=== PATIENT | female | born 1950 | race Caucasian/White ===

== ENCOUNTER 2016-11-11 16:34 | Emergency (ER) | payer OTHER ==
[~2016-11-11] VITALS: Ht 162.6 cm; Wt 118.0 kg
[~2016-11-11 16:34] MED LIST: ALBU8.5H5 IH; ASPI-664 PO; ATEN50TA PO; DILT60TA29 PO; FURO40TA4 PO; GLYB1TAB3 PO; LEVA15HF6 INH; LOSA1TAB21 PO
[2016-11-11 16:39] VITALS: Ht 162.6 cm; Wt 118.0 kg
[2016-11-11] MEDS ORDERED: LABETALOL HCL 20MG INJ IV ONE (17:30)
[2016-11-11] MEDS ORDERED: ERGO500037 PO (17:45)
[2016-11-11] MEDS ORDERED: DIPH25CA6 PO (17:46)
[2016-11-11] MEDS ORDERED: GLYB5TAB3 PO (17:46)
[2016-11-11] MEDS ORDERED: HYDR-3671 PO (17:47)
[2016-11-11] MEDS ORDERED: POTA20TA96 PO (17:47)
[2016-11-11] MEDS ORDERED: GABA100C14 PO (17:48)
--- NOTE | 2016-11-11 17:48 | RADRPT ---
PROCEDURE: Chest x-ray CLINICAL INDICATION: Chest pain TECHNIQUE: Chest single view COMPARISON: 05/20/2014 FINDINGS: There is stable moderate cardiomegaly and an sclerotic aortic calcification. Ongoing mild central v enous congestion is seen with slight enlargement of the central pulmonary vessels. No confluent pne umonias identified. No large pleural fluid is seen. IMPRESSION: 1. Cardiomegaly with ongoing mild degree CHF. 2. Atherosclerotic aortic calcification. 3. Enlarged central pulmonary arteries RPTAT: HH .Samuel Rodriges MD, MD Date Time Electronically viewed and signed by .Samuel Rodriges MD, MD on 11/11/2016 17:47 .W/
[2016-11-11] MEDS ORDERED: CLON-379 PO (17:51)
[2016-11-11 18:17] LABS: BASOPHIL # 0.1 10^3/ul (0.0-0.1); BASOPHILS % 0.6 % (0.0-2.0); EOSINOPHILS % 0.1 % (0.0-7.0); HEMATOCRIT 40.4 % (37.0-47.0); HEMOGLOBIN 12.3 g/dl (12.0-16.0); LYMPHOCYTES # 1.7 10^3/ul (0.8-2.9); MEAN CORPUSCULAR HEMOGLOBIN 28.6 pg (29.0-33.0); MEAN CORPUSCULAR HGB CONC 30.4 g/dl (32.0-37.0); MEAN PLATELET VOLUME 10.7 fl (7.4-10.4); MONOCYTE # 0.5 10^3/ul (0.3-0.9); MONOCYTES % 5.2 % (0.0-11.0); NEUTROPHILS % 76.6 % (39.0-77.0); PLATELET COUNT 211 10^3/UL (140-415); RED CELL DISTRIBUTION WIDTH 14.4 % (11.5-14.5); WHITE BLOOD COUNT 10.2 10^3/ul (4.8-10.8)
[2016-11-11 18:34] LABS: INR 1.03; PARTIAL THROMBOPLASTIN TIME 29.7 Sec (25.0-35.0); PROTIME 13.5 Sec (12.2-14.2); PT RATIO 1.1
[2016-11-11 18:38] LABS: ANION GAP 11 (8-16); BLOOD UREA NITROGEN 26 mg/dl (7-20); CALCIUM 10.2 mg/dl (8.4-10.2); CARBON DIOXIDE 32 mmol/L (21-31); CHLORIDE 98 mmol/L (97-110); CREATININE 1.03 mg/dl (0.44-1.00); GLUCOSE 174 mg/dl (70-220); POTASSIUM 4.1 mmol/L (3.5-5.1); SODIUM 137 mmol/L (135-144)
[2016-11-11 18:51] LABS: B-TYPE NATRIURETIC PEPTIDE 409 PG/ML (0-125)
[2016-11-11 18:54] LABS: TROPONIN-I < 0.012 ng/ml (0.00-0.12)
[2016-11-11 20:35] VITALS: BP 167/84; PULSE 75; RESP 24
[2016-11-11] MEDS ORDERED: METOPROLOL 50 MG TAB PO ONE (21:30)
[2016-11-11] MEDS ORDERED: FUROSEMIDE 40 MG INJ IV ONE (21:30)
[2016-11-11] MEDS ORDERED: METO-429 PO (21:52)
--- NOTE | 2016-11-11 22:03 | ERD ---
ER Documentation Chief Complaint Date/Time DATE: 11/11/16 TIME: 21:54 Chief Complaint pt bib daughter with c/o sob x 1 month HPI This 66-year-old female presents with shortness of breath for a month. She is a coming by her daughter. She denies any chest pain, fevers, chills. She also is noted to have very high blood pressure in triage. She took both of her blood pressure medications today. They are hydralazine and atenolol. ROS All systems reviewed and are negative except as per history of present illness. Medications Home Meds Active Scripts Metoprolol Tartrate* (Lopressor*) 50 Mg Tab, 50 MG PO BID, #60 TAB Prov:DENNIS NAYLOR DO 11/11/16 Reported Medications Clonidine Hcl* (Clonidine Hcl*) 0.1 Mg Tab, 0.1 MG PO DAILY Y for NEEDED, TAB HOLD IF BLOOD PRESSURE MORE THAN 160 11/11/16 Gabapentin* (Gabapentin*) 100 Mg Capsule, 200 MG PO DAILY, #180 CAP 11/11/16 Potassium Chloride* (Potassium Chloride*) 20 Meq Tablet.er, 20 MEQ PO DAILY, TAB.SA 11/11/16 Hydralazine Hcl* (Hydralazine Hcl*) 25 Mg Tab, 25 MG PO Q8, #90 TAB 11/11/16 Glyburide* (Glyburide*) 5 Mg Tablet, 5 MG PO DAILY Y for NEEDED, #30 TAB 11/11/16 Diphenhydramine Hcl* (Diphenhydramine Hcl*) 25 Mg Capsule, 25 MG PO QHS Y for ITCHING, CAP 11/11/16 Ergocalciferol (Vitamin D2) (VITAMIN D2) 50,000 Unit Capsule, 21044 UNIT PO Q7D , CAP 11/11/16 Losartan-Hydrochlorothiazide (Losartan-HCTZ) 100-12.5 Mg Tab, 1 TAB PO DAILY, TAB 05/20/14 Diltiazem Hcl* (Cardizem*) 60 Mg Tablet, 60 MG PO BID, TAB 05/20/14 Furosemide* (Furosemide*) 40 Mg Tablet, 40 MG PO DAILY, TAB 05/20/14 Glyburide, Micro-Metformin Hcl (Glyburide-Metformin) 5-500 Tab, 2 TAB PO BID, TAB 05/20/14 Aspirin (Aspirin) 81 Mg Tablet.dr, 81 MG PO DAILY 1/30/14 Atenolol* (Atenolol*) 50 Mg Tablet, 50 MG PO BID 10/25/10 Discontinued Reported Medications Albuterol Sulfate* (Albuterol Sulfate* HFA) 8.5 Gm Hfa.aer.ad, 2 PUFF IH Q4H Y for WHEEZING AND SOB, EA 05/20/14 Levalbuterol* (Xopenex* HFA) 15 Gm Inha, 2 PUFFS INH Q4H Y for WHEEZING AND SOB , EA 05/20/14 Allergies Allergies: Coded Allergies: sildenafil (Verified Allergy, Intermediate, BODY RASH, DIAPHORETIC/ TACHYPNEIC, 11/11/16) PMhx/Soc History of Surgery: No Anesthesia Reaction: No Hx Neurological Disorder: No Hx Respiratory Disorders: No Hx Cardiac Disorders: Yes (HTN, CHF ) Hx Psychiatric Problems: No Hx Miscellaneous Medical Probl: Yes (DIABETES, UTERINE CA ) Hx Alcohol Use: No Hx Substance Use: No Hx Tobacco Use: No Smoking Status: Never smoker Physical Exam Vitals Vital Signs Date Time Temp Pulse Resp B/P Pulse Ox O2 Delivery O2 Flow Rate FiO2 11/11/16 20:35 75 24 167/84 99 Nasal Cannula 2.0 11/11/16 18:19 76 16 167/81 Nasal Cannula 2.0 11/11/16 17:40 Nasal Cannula 2.0 11/11/16 17:40 Nasal Cannula 2 11/11/16 17:30 81 30 196/99 97 Nasal Cannula 3.0 11/11/16 16:39 98.3 118 28 240/116 91 Physical Exam Const: [] Mild distress, appears short of breath Head: Atraumatic Eyes: Normal Conjunctiva ENT: Normal External Ears, Nose and Mouth. Neck: Full range of motion..~ No meningismus. Resp: Mild decreased bibasilar breath sounds, very mild tachypnea Cardio: Regular rate and rhythm, no murmurs Abd: Soft, obese, non tender, non distended. Normal bowel sounds Skin: No petechiae or rashes Ext: No cyanosis, or edema Neur: Awake and alert and oriented 3, no focal deficits Psych: Normal Mood and Affect Result Diagram: 11/11/16 1750 11/11/16 1750 Results 24 hrs Laboratory Tests Test 11/11/16 17:50 White Blood Count 10.210^3/ul Red Blood Count 4.3010^6/ul Hemoglobin 12.3g/dl Hematocrit 40.4% Mean Corpuscular Volume 94.0fl Mean Corpuscular Hemoglobin 28.6pg Mean Corpuscular Hemoglobin Concent 30.4g/dl Red Cell Distribution Width 14.4% Platelet Count 89439^3/UL Mean Platelet Volume 10.7fl Neutrophils % 76.6% Lymphocytes % 17.0% Monocytes % 5.2% Eosinophils % 0.1% Basophils % 0.6% Nucleated Red Blood Cells % 0.0/100WBC Neutrophils # (Manual) 7.910^3/ul Lymphocytes # 1.710^3/ul Monocytes # 0.510^3/ul Eosinophils # 0.010^3/ul Basophils # 0.110^3/ul Nucleated Red Blood Cells # 0.010^3/ul Prothrombin Time 13.5Sec Prothrombin Time Ratio 1.1 INR International Normalized Ratio 1.03 Activated Partial Thromboplast Time 29.7Sec Sodium Level 137mmol/L Potassium Level 4.1mmol/L Chloride Level 98mmol/L Carbon Dioxide Level 32mmol/L Anion Gap 11 Blood Urea Nitrogen 26mg/dl Creatinine 1.03mg/dl Glucose Level 174mg/dl Calcium Level 10.2mg/dl Troponin I < 0.012ng/ml B-Type Natriuretic Peptide 409PG/ML Current Medications Medications (Trade) Dose Ordered Sig/Meena Route PRN Reason Start Time Stop Time Status Last Admin Dose Admin Labetalol HCl (Labetalol) 20 mg ONCE ONCE IV 11/11/16 17:30 11/11/16 17:31 DC 11/11/16 17:33 Furosemide (Lasix) 40 mg ONCE ONCE IV 11/11/16 21:30 11/11/16 21:31 DC 11/11/16 21:35 Metoprolol Tartrate (Lopressor) 50 mg ONCE ONCE PO 11/11/16 21:30 11/11/16 21:31 DC 11/11/16 21:35 Procedures/MDM Severe hypertension with hypertensive crisis.. Patient also has mild CHF as noted by labs and x-ray. However shortness of breath completely resolved after blood pressure was controlled. Patient was given IV labetalol to control the blood pressure. Recommended admission in order to further monitor blood pressure and cardiac function however it turned out the patient's insurance capitated to [facility] even though she had been admitted here previously. She does not want to go that hospital and rather go home. Did not make her sign out AGAINST MEDICAL ADVICE. She was also given Lasix 40 mg in the ER as well as a metoprolol pill. She was able to tolerate the metoprolol well. Going to discharge with metoprolol 50 mg twice daily in place of the atenolol although the dose may need to be increased. I instructed him to call the primary care doctor tomorrow and recommended outpatient echocardiogram as well. EKG interpretation: Normal sinus rhythm rate of 80, left axis deviation, no ST or T-wave changes concerning for acute ischemia, normal intervals. 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 This does not include any billable procedures. Departure Diagnosis: Primary Impression: CHF (congestive heart failure) Additional Impressions: Hypertensive urgency Renal insufficiency Condition: Stable Patient Instructions: Hypertension, Established, Out Of Control Additional Instructions: Call your primary care doctor TOMORROW for a SAME-DAY APPOINTMENT.Tell the physician office secretary that you were referred from this facility.Call again if your condition worsens before your appointment time. DENNIS NAYLOR DO Nov 11, 2016 22:03
== END 2016-11-11 21:57 | disposition home or self-care (01) ==
LOC: E/R 16:34
DX: I50.9 Heart failure, unspecified (principal); I16.0 Hypertensive urgency; N28.9 Disorder of kidney and ureter, unspecified; I10 Essential (primary) hypertension; E11.9 Type 2 diabetes mellitus without complications; Z79.82 Long term (current) use of aspirin; Z79.84 Long term (current) use of oral hypoglycemic drugs; Z85.42 Personal history of malignant neoplasm of other parts of uterus
CPT/HCPCS: 71010; 80048; 83880; 84484; 85025; 85610; 85730; 93005; 96374; 96375; J1940; Z7502; Z7610

== ENCOUNTER 2018-01-25 13:24 | Inpatient (IN) | END 2018-01-27 11:22 | disposition home or self-care (01) | DRG 551 ==

== ENCOUNTER 2018-05-12 11:31 | Inpatient (IN) | payer MEDICARE, OTHER ==
[~2018-05-12] VITALS: Ht 154.9 cm; Wt 143.3 kg
[~2018-05-12 11:31] MED LIST changes: -ALBU8.5H5 IH; +AMLO-147 PO; -ASPI-664 PO; +ASPI81TA52 PO; -ATEN50TA PO; +CARV6.2579 PO; -DILT60TA29 PO; +FURO-109 PO; -FURO40TA4 PO; +GLIP10TA14 PO; -GLYB1TAB3 PO; +INSU100I33 SC; -LEVA15HF6 INH; +LOSA100T15 PO; -LOSA1TAB21 PO; +METF100010 PO; +POTA8TAB2 PO
[2018-05-12] MEDS ORDERED: CARV12.579 PO (12:30)
[2018-05-12] MEDS ORDERED: GABA100C14 PO (12:31)
[2018-05-12] MEDS ORDERED: ALBU18HF INHALATION (12:31)
[2018-05-12] MEDS ORDERED: DIGO250T PO (12:32)
[2018-05-12] MEDS ORDERED: IBUP-1544 PO (12:34)
[2018-05-12] MEDS ORDERED: ATOR20TA38 PO (12:34)
[2018-05-12] MEDS ORDERED: ERGO500013 PO (12:35)
[2018-05-12] MEDS ORDERED: APIX5TAB PO (12:35)
[2018-05-12] MEDS ORDERED: NITROGLYCERIN 2% 1 GM OINT PKT TD STA (12:49)
[2018-05-12] MEDS ORDERED: ASPIRIN 81 MG TAB PO STA (12:49)
[2018-05-12] MEDS ORDERED: NITROGLYCERIN (SL) 0.4 MG TAB SL PRN ×2 (13:00→14:30)
[2018-05-12] MEDS ORDERED: FUROSEMIDE 40 MG INJ IV ONE (13:00)
[2018-05-12] MEDS ORDERED: ONDANSETRON 4 MG INJ IV PRN ×2 (13:30→14:30)
[2018-05-12] MEDS ORDERED: ACETAMINOPHEN 325 MG TAB PO PRN ×2 (13:30→14:30)
--- NOTE | 2018-05-12 13:36 | ERD ---
ER Documentation Chief Complaint Chief Complaint SOB WITH HYPERTENSION, ARRIVED WITH O2 NC 2.5L HPI Patient is a 67-year-old female with CHF, hypertension, diabetes who presents with shortness of breath. The patient has had shortness of breath for 1 week and it is getting worse. She has a history of CHF. She went to her doctor 3 days ago. She said "I cannot breathe". She uses CPAP at night. She has had no treatment today. Upon review of old medical records the patient has multiple visits with admissions for CHF. She does have a primary doctor. ROS All systems reviewed and are negative except as per history of present illness. Medications Home Meds Reported Medications Apixaban* (Eliquis*) 5 Mg Tablet, 5 MG PO BID, TAB 05/12/18 Ergocalciferol (Vitamin D2) (VITAMIN D2) 50,000 Unit Capsule, 49021 UNIT PO WEEKLY, CAP 05/12/18 Atorvastatin Calcium* (Atorvastatin Calcium*) 20 Mg Tablet, 20 MG PO QHS, #30 TAB 05/12/18 Ibuprofen* (Ibuprofen*) 800 Mg Tablet, 800 MG PO DAILY PRN for SEVERE PAIN LEVEL 7-10, TAB 05/12/18 Digoxin* (Digitek*) 250 Mcg Tablet, 0.25 MG PO DAILY, TAB 05/12/18 Gabapentin* (Gabapentin*) 100 Mg Capsule, 200 MG PO DAILY, #180 CAP 05/12/18 Albuterol Sulfate* (Ventolin HFA*) 18 Gm Hfa.aer.ad, 2 PUFF INHALATION Q6H PRN for WHEEZING AND SOB, #1 INHALER 05/12/18 Carvedilol* (Carvedilol*) 12.5 Mg Tablet, 12.5 MG PO BID, #60 TAB 05/12/18 Potassium Chloride* (Klor-Con*) 8 Meq Tablet.sa, 8 MEQ PO BID, TAB 01/25/18 Losartan Potassium* (Losartan Potassium*) 100 Mg Tablet, 100 MG PO DAILY, TAB 01/25/18 Furosemide* (Lasix*) 40 Mg Tablet, 40 MG PO BID, TAB 01/25/18 Insulin Glargine,Hum.rec.anlog (Basaglar Kwikpen U-100) 100 Unit/1 Ml Insuln.pen, 10 UNIT SC BID, EA 01/25/18 Amlodipine Besylate* (Amlodipine Besylate*) 10 Mg Tablet, 10 MG PO DAILY, #30 TAB 01/25/18 Metformin Hcl* (Metformin Hcl*) 1,000 Mg Tablet, 1000 MG PO WITH BREAKFAST DINNE, #60 TAB 01/25/18 Glipizide* (Glipizide*) 10 Mg Tablet, 10 MG PO BID, TAB 01/25/18 Discontinued Reported Medications Carvedilol* (Carvedilol*) 6.25 Mg Tablet, 6.25 MG PO BID, #60 TAB 01/25/18 Aspirin (Low Dose Aspirin) 81 Mg Tablet.dr, 81 MG PO DAILY, #30 TAB 01/25/18 Allergies Allergies: Coded Allergies: sildenafil (Verified Allergy, Intermediate, BODY RASH, DIAPHORETIC/TACHYPNEIC, 05/12/18) PMhx/Soc History of Surgery: Yes (hysterectomy) Anesthesia Reaction: No Hx Neurological Disorder: No Hx Respiratory Disorders: No (sleep apnea) Hx Cardiac Disorders: Yes (chf) Hx Psychiatric Problems: No Hx Miscellaneous Medical Probl: Yes (obesity, chf, sob , dm , htn , on home 02 .) Hx Alcohol Use: No Hx Substance Use: No Hx Tobacco Use: No Smoking Status: Never smoker FmHx Family History: No diabetes Physical Exam Vitals Vital Signs Date Temp Pulse Resp B/P (MAP) Pulse Ox O2 O2 Flow FiO2 Time Delivery Rate 05/12/18 74 100 50 12:06 05/12/18 99.0 89 35 213/123 75 11:39 (153) Physical Exam Const: Moderate distress Head: Atraumatic Eyes: Normal Conjunctiva ENT: Normal External Ears, Nose and Mouth. Neck: Full range of motion. No meningismus. Resp: Decreased breath sounds bilaterally Cardio: Regular rate and rhythm, no murmurs Abd: Anasarca in the lower abdomen Skin: No petechiae or rashes Back: No midline or flank tenderness Ext: 4+ bilateral lower extremity edema Neur: Awake and alert Psych: Normal Mood and Affect Result Diagram: 05/12/18 1200 05/12/18 1200 Results 24 hrs Laboratory Tests Test 05/12/18 12:00 White Blood Count 12.0 10^3/ul Red Blood Count 4.64 10^6/ul Hemoglobin 13.1 g/dl Hematocrit 43.7 % Mean Corpuscular Volume 94.2 fl Mean Corpuscular Hemoglobin 28.2 pg Mean Corpuscular Hemoglobin Concent 30.0 g/dl Red Cell Distribution Width 14.6 % Platelet Count 214 10^3/UL Mean Platelet Volume 10.7 fl Immature Granulocytes % 0.600 % Neutrophils % 81.5 % Lymphocytes % 12.1 % Monocytes % 5.2 % Eosinophils % 0.2 % Basophils % 0.4 % Nucleated Red Blood Cells % 0.0 /100WBC Immature Granulocytes # 0.070 10^3/ul Neutrophils # 9.8 10^3/ul Lymphocytes # 1.5 10^3/ul Monocytes # 0.6 10^3/ul Eosinophils # 0.0 10^3/ul Basophils # 0.1 10^3/ul Nucleated Red Blood Cells # 0.0 10^3/ul Prothrombin Time 15.8 Sec Prothrombin Time Ratio 1.2 INR International Normalized Ratio 1.25 Activated Partial Thromboplast Time 33.3 Sec Sodium Level 140 mmol/L Potassium Level 4.6 mmol/L Chloride Level 99 mmol/L Carbon Dioxide Level 32 mmol/L Anion Gap 9 Blood Urea Nitrogen 13 mg/dl Creatinine 0.73 mg/dl Est Glomerular Filtrat Rate mL/min > 60 mL/min Glucose Level 284 mg/dl Calcium Level 9.9 mg/dl Troponin I < 0.012 ng/ml Current Medications Medications Dose Sig/Meena Start Time Status Last (Trade) Ordered Route PRN Stop Time Admin Dose Reason Admin Furosemide 40 mg ONCE ONCE 05/12/18 DC 05/12/18 (Lasix) IV 13:00 12:57 05/12/18 13:01 Aspirin 162 mg ONCE STAT 05/12/18 DC 05/12/18 (Aspirin) PO 12:49 12:58 05/12/18 12:50 1 inch ONCE STAT 05/12/18 DC 05/12/18 Nitroglycerin TD 12:49 12:58 05/12/18 12:50 (Nitroglyceri n 2% Oint) 1 tab Q5M UP TO 3 05/12/18 Nitroglycerin DOSES PRN 13:00 SL .CHEST (Nitroglyceri PAIN n (Sl Tab) 0.4 Mg) Ondansetron 4 mg ER BRIDGE 05/12/18 HCl (Zofran PRN IV 13:30 Inj) NAUSEA/VOMITI 05/13/18 13:29 NG 650 mg ER BRIDGE 05/12/18 Acetaminophen PRN PO 13:30 (Tylenol .MILD PAIN 05/13/18 13:29 Tab) 1-3 OR TEMP Procedures/MDM EKG read by me: Rate/Rhythm: Atrial fibrillation at a rate of 68 Intervals: Normal Impression: Atrial fibrillation without ischemia Chest x-ray read by radiology. Patient is a 67-year-old female with multiple cardiac risk factors who presents with shortness of breath. She was placed on BiPAP immediately upon arrival. She has obvious swelling the lower extremities and abdomen. I am concerned for acute CHF exacerbation with anasarca. I believe she has respiratory failure as she needed BiPAP therapy. She was given aspirin, nitroglycerin, and Lasix. She will be admitted to a telemetry bed to the care of the panel team. I doubt pneumonia, pneumothorax, pulmonary embolism, or aortic dissection. Critical Care: Time: 35 minutes excluding all billable procedures. Treatments/Evaluations: Close monitoring and treatment of unstable vital signs, cardiorespiratory, and neurologic status, while maintaining tight balance of fluid, respiratory, and cardiac interventions. Departure Diagnosis: Primary Impression: Respiratory failure Chronicity: acute Respiratory failure complication: unspecified whether with hypoxia or hypercapnia Qualified Codes: J96.00 - Acute respiratory failure, unspecified whether with hypoxia or hypercapnia Additional Impressions: Shortness of breath CHF (congestive heart failure) Heart failure type: unspecified Heart failure chronicity: acute Qualified Codes: I50.9 - Heart failure, unspecified Condition: HALEY Reid MD May 12, 2018 13:36
[2018-05-12] MEDS ORDERED: DOCUSATE SODIUM 100 MG CAP PO PRN (14:30)
[2018-05-12] MEDS ORDERED: HYDROCODONE/APAP (5/325) TAB PO PRN (14:30)
[2018-05-12] MEDS ORDERED: MAGNESIUM HYDROXIDE 30ML CUP PO PRN (14:30)
[2018-05-12] MEDS ORDERED: IBUPROFEN 800 MG TAB PO PRN (14:30)
[2018-05-12] MEDS ORDERED: morphine 2 MG INJ IV PRN (14:30)
[2018-05-12] MEDS ORDERED: ALBUTEROL/IPRATROPIUM (NEB) 3 ML AMP HHN PRN (14:30)
[2018-05-12] MEDS ORDERED: PROVENTIL HFA 6.7GM INHALER INH PRN (14:30)
[2018-05-12] MEDS ORDERED: LORAZEPAM 2 MG INJ IV PRN (14:30)
[2018-05-12] MEDS ORDERED: NACL 0.9% 3 ML SYG IV SCH (14:30)
[2018-05-12] MEDS ORDERED: hydrALAzine 20 MG INJ IV PRN (14:30)
--- NOTE | 2018-05-12 15:36 | CONS ---
Assessment/Plan Cardiology NYHA: II Heart Failure Type: Acute on Chronic Heart Failure Type: Diastolic Assessment/Plan Hospital Course (Demo Recall) Acute decompensated diastolic congestive heart failure Preserved ejection fraction Atrial fibrillation Hypertension Diabetes Morbid obesity Obstructive sleep apnea Likely obesity hypoventilation syndrome -Patient with evidence of significant volume overload. Continue IV diuretics -Obtain serial cardiac enzymes -Blood pressure control -Continue Eliquis if no contraindication -Extensive discussion with patient and daughter at bedside regarding importance of medication compliance, lifestyle modification and weight loss. Consultation Date/Type/Reason Admit Date/Time Type of Consult Cardiology Reason for Consultation Shortness of breath Date/Time of Note DATE: 05/12/18 TIME: 15:29 Hx of Present Illness This is a 67-year-old female with past medical history of diastolic congestive heart failure, hypertension, diabetes, atrial fibrillation who presents with progressive worsening shortness of breath over the past 10 days. Symptoms are worse with exertion and improved at rest. Symptoms also with lying down to sleep. Symptoms are improved with supplemental oxygen which she is on at home. As per the family, they think she is compliant with medications but noncompliant with diet and lifestyle. 12 point review of systems was performed with all pertinent positives and negatives mentioned above and all else is negative Past Medical History Medical History: congestive heart failure, diabetes, high cholesterol, hypertension Home Meds Reported Medications Apixaban* (Eliquis*) 5 Mg Tablet, 5 MG PO BID, TAB 05/12/18 Ergocalciferol (Vitamin D2) (VITAMIN D2) 50,000 Unit Capsule, 70947 UNIT PO WEEKLY, CAP 05/12/18 Atorvastatin Calcium* (Atorvastatin Calcium*) 20 Mg Tablet, 20 MG PO QHS, #30 TAB 05/12/18 Ibuprofen* (Ibuprofen*) 800 Mg Tablet, 800 MG PO DAILY PRN for SEVERE PAIN LEVEL 7-10, TAB 05/12/18 Digoxin* (Digitek*) 250 Mcg Tablet, 0.25 MG PO DAILY, TAB 05/12/18 Gabapentin* (Gabapentin*) 100 Mg Capsule, 200 MG PO DAILY, #180 CAP 05/12/18 Albuterol Sulfate* (Ventolin HFA*) 18 Gm Hfa.aer.ad, 2 PUFF INHALATION Q6H PRN for WHEEZING AND SOB, #1 INHALER 05/12/18 Carvedilol* (Carvedilol*) 12.5 Mg Tablet, 12.5 MG PO BID, #60 TAB 05/12/18 Potassium Chloride* (Klor-Con*) 8 Meq Tablet.sa, 8 MEQ PO BID, TAB 01/25/18 Losartan Potassium* (Losartan Potassium*) 100 Mg Tablet, 100 MG PO DAILY, TAB 01/25/18 Furosemide* (Lasix*) 40 Mg Tablet, 40 MG PO BID, TAB 01/25/18 Insulin Glargine,Hum.rec.anlog (Basaglar Kwikpen U-100) 100 Unit/1 Ml Insuln.pen, 10 UNIT SC BID, EA 01/25/18 Amlodipine Besylate* (Amlodipine Besylate*) 10 Mg Tablet, 10 MG PO DAILY, #30 TAB 01/25/18 Metformin Hcl* (Metformin Hcl*) 1,000 Mg Tablet, 1000 MG PO WITH BREAKFAST DINNE, #60 TAB 01/25/18 Glipizide* (Glipizide*) 10 Mg Tablet, 10 MG PO BID, TAB 01/25/18 Discontinued Reported Medications Carvedilol* (Carvedilol*) 6.25 Mg Tablet, 6.25 MG PO BID, #60 TAB 01/25/18 Aspirin (Low Dose Aspirin) 81 Mg Tablet.dr, 81 MG PO DAILY, #30 TAB 01/25/18 Medications Current Medications Nitroglycerin (Nitroglycerin (Sl Tab) 0.4 Mg) 1 tab Q5M UP TO 3 DOSES PRN SL .CHEST PAIN; Start 05/12/18 at 13:00 Ondansetron HCl (Zofran Inj) 4 mg ER BRIDGE PRN IV NAUSEA/VOMITING; Start 05/12/18 at 13:30; Stop 05/13/18 at 13:29 Acetaminophen (Tylenol Tab) 650 mg ER BRIDGE PRN PO .MILD PAIN 1-3 OR TEMP; Start 05/12/18 at 13:30; Stop 05/13/18 at 13:29 IV Flush (NS 3 ml) 3 ml PER PROTOCOL IV ; Start 05/12/18 at 14:30 Ondansetron HCl (Zofran Inj) 4 mg Q6H PRN IV NAUSEA/VOMITING; Start 05/12/18 at 14:30 Acetaminophen (Tylenol Tab) 650 mg Q6H PRN PO .PAIN 1-3 OR TEMP; Start 05/12/18 at 14:30 Acetaminophen/ Hydrocodone Bitart ([place] (5/325)) 1 tab Q6H PRN PO .MOD PAIN 4- 6; Start 05/12/18 at 14:30 Morphine Sulfate (morphine) 2 mg Q4H PRN IV .SEVERE PAIN 7-10; Start 05/12/18 at 14:30 Docusate Sodium (Colace) 100 mg Q12H PRN PO .CONSTIPATION; Start 05/12/18 at 14:30 Magnesium Hydroxide (Milk Of Mag) 30 ml DAILY PRN PO .CONSTIPATION; Start 05/12/18 at 14:30 Pantoprazole (Protonix Tab) 40 mg DAILY@06 PO ; Start 05/13/18 at 06:00 Lorazepam (Ativan) 0.5 mg Q6H PRN IV ANXIETY; Start 05/12/18 at 14:30 Albuterol/ Ipratropium (Duoneb) 3 ml Q4H RESP THERAPY PRN HHN SHORTNESS OF BREATH; Start 05/12/18 at 14:30 Hydralazine HCl (Apresoline) 10 mg Q6H PRN IV ELEVATED BLOOD PRESSURE; Start 05/12/18 at 14:30 Nitroglycerin (Nitroglycerin (Sl Tab) 0.4 Mg) 1 tab Q5M PRN SL ANGINA; Start 05/12/18 at 14:30 Albuterol (Proventil (O.r. Use Only)) 2 puff Q6H PRN INH WHEEZING AND SOB; Start 05/12/18 at 14:30 Amlodipine Besylate (Norvasc) 10 mg DAILY PO ; Start 05/13/18 at 09:00 Apixaban (Eliquis) 5 mg BID PO ; Start 05/12/18 at 21:00 Atorvastatin Calcium (Lipitor) 20 mg QHS PO ; Start 05/12/18 at 21:00 Digoxin (Digoxin) 0.25 mg DAILY@1300 PO ; Start 05/13/18 at 13:00 Gabapentin (Neurontin) 200 mg DAILY PO ; Start 05/13/18 at 09:00 Ibuprofen (Motrin) 800 mg DAILY PRN PO SEVERE PAIN LEVEL 7-10; Start 05/12/18 at 14:30 Insulin Glargine (Lantus) 10 unit BID SC ; Start 05/12/18 at 21:00 Losartan Potassium (Cozaar) 100 mg DAILY PO ; Start 05/13/18 at 09:00 Potassium Chloride (Micro-K) 8 meq BID PO ; Start 05/12/18 at 21:00 Furosemide (Lasix) 40 mg BID DIURETICS IV ; Start 05/12/18 at 18:00 Diagnostic Test (Pha) (Accu-Chek) 1 ea 02 XX ; Start 05/13/18 at 02:00 Insulin Aspart (Novolog Insulin Pen) NOVOLOG *MILD* ALGORI... Q4 SC ; Start 05/12/18 at 17:00 Allergies: Coded Allergies: sildenafil (Verified Allergy, Intermediate, BODY RASH, DIAPHORETIC/TACHY PNEIC, 05/12/18) Past Surgical History Past Surgical Hx: no surgical history Social History Smoking Status: Never smoker Exam/Review of Systems Vital Signs Vitals Vital Signs Date Temp Pulse Resp B/P (MAP) Pulse Ox O2 O2 Flow FiO2 Time Delivery Rate 05/12/18 79 24 176/101 Room Air 14:07 (126) 05/12/18 100 50 12:06 05/12/18 99.0 11:39 Exam Exam Morbidly obese, on supplemental oxygen, mildly dyspneic with extensively speaking Constitutional: alert, oriented Head: normocephalic Respiratory: crackles/rales, other (Coarse breath sounds) Cardiovascular: irregular rhythm, other (S1-S2 heard) Gastrointestinal: soft, non-tender, bowel sounds Extremities: edema Labs Result Diagram: 05/12/18 1200 05/12/18 1200 Results 24hrs Laboratory Tests Test 05/12/18 12:00 White Blood Count 12.0 H Red Blood Count 4.64 Hemoglobin 13.1 Hematocrit 43.7 Mean Corpuscular Volume 94.2 Mean Corpuscular Hemoglobin 28.2 L Mean Corpuscular Hemoglobin Concent 30.0 L Red Cell Distribution Width 14.6 H Platelet Count 214 Mean Platelet Volume 10.7 H Immature Granulocytes % 0.600 H Neutrophils % 81.5 H Lymphocytes % 12.1 L Monocytes % 5.2 Eosinophils % 0.2 Basophils % 0.4 Nucleated Red Blood Cells % 0.0 Immature Granulocytes # 0.070 H Neutrophils # 9.8 H Lymphocytes # 1.5 Monocytes # 0.6 Eosinophils # 0.0 Basophils # 0.1 Nucleated Red Blood Cells # 0.0 Prothrombin Time 15.8 H Prothrombin Time Ratio 1.2 INR International Normalized Ratio 1.25 Activated Partial Thromboplast Time 33.3 Sodium Level 140 Potassium Level 4.6 Chloride Level 99 Carbon Dioxide Level 32 H Anion Gap 9 Blood Urea Nitrogen 13 Creatinine 0.73 Est Glomerular Filtrat Rate mL/min > 60 Glucose Level 284 H Calcium Level 9.9 Troponin I < 0.012 Free Thyroxine 1.30 Imaging Imaging ECG with atrial fibrillation at 68 bpm, QRS 70 ms, inferior Q waves, nonspecific ST abnormalities Medications Medications Current Medications Nitroglycerin (Nitroglycerin (Sl Tab) 0.4 Mg) 1 tab Q5M UP TO 3 DOSES PRN SL .CHEST PAIN; Start 05/12/18 at 13:00 Ondansetron HCl (Zofran Inj) 4 mg ER BRIDGE PRN IV NAUSEA/VOMITING; Start 05/12/18 at 13:30; Stop 05/13/18 at 13:29 Acetaminophen (Tylenol Tab) 650 mg ER BRIDGE PRN PO .MILD PAIN 1-3 OR TEMP; Start 05/12/18 at 13:30; Stop 05/13/18 at 13:29 IV Flush (NS 3 ml) 3 ml PER PROTOCOL IV ; Start 05/12/18 at 14:30 Ondansetron HCl (Zofran Inj) 4 mg Q6H PRN IV NAUSEA/VOMITING; Start 05/12/18 at 14:30 Acetaminophen (Tylenol Tab) 650 mg Q6H PRN PO .PAIN 1-3 OR TEMP; Start 05/12/18 at 14:30 Acetaminophen/ Hydrocodone Bitart ([place] (5/325)) 1 tab Q6H PRN PO .MOD PAIN 4- 6; Start 05/12/18 at 14:30 Morphine Sulfate (morphine) 2 mg Q4H PRN IV .SEVERE PAIN 7-10; Start 05/12/18 at 14:30 Docusate Sodium (Colace) 100 mg Q12H PRN PO .CONSTIPATION; Start 05/12/18 at 14:30 Magnesium Hydroxide (Milk Of Mag) 30 ml DAILY PRN PO .CONSTIPATION; Start 05/12/18 at 14:30 Pantoprazole (Protonix Tab) 40 mg DAILY@06 PO ; Start 05/13/18 at 06:00 Lorazepam (Ativan) 0.5 mg Q6H PRN IV ANXIETY; Start 05/12/18 at 14:30 Albuterol/ Ipratropium (Duoneb) 3 ml Q4H RESP THERAPY PRN HHN SHORTNESS OF BREATH; Start 05/12/18 at 14:30 Hydralazine HCl (Apresoline) 10 mg Q6H PRN IV ELEVATED BLOOD PRESSURE; Start 05/12/18 at 14:30 Nitroglycerin (Nitroglycerin (Sl Tab) 0.4 Mg) 1 tab Q5M PRN SL ANGINA; Start 05/12/18 at 14:30 Albuterol (Proventil (O.r. Use Only)) 2 puff Q6H PRN INH WHEEZING AND SOB; Start 05/12/18 at 14:30 Amlodipine Besylate (Norvasc) 10 mg DAILY PO ; Start 05/13/18 at 09:00 Apixaban (Eliquis) 5 mg BID PO ; Start 05/12/18 at 21:00 Atorvastatin Calcium (Lipitor) 20 mg QHS PO ; Start 05/12/18 at 21:00 Digoxin (Digoxin) 0.25 mg DAILY@1300 PO ; Start 05/13/18 at 13:00 Gabapentin (Neurontin) 200 mg DAILY PO ; Start 05/13/18 at 09:00 Ibuprofen (Motrin) 800 mg DAILY PRN PO SEVERE PAIN LEVEL 7-10; Start 05/12/18 at 14:30 Insulin Glargine (Lantus) 10 unit BID SC ; Start 05/12/18 at 21:00 Losartan Potassium (Cozaar) 100 mg DAILY PO ; Start 05/13/18 at 09:00 Potassium Chloride (Micro-K) 8 meq BID PO ; Start 05/12/18 at 21:00 Furosemide (Lasix) 40 mg BID DIURETICS IV ; Start 05/12/18 at 18:00 Diagnostic Test (Pha) (Accu-Chek) 1 ea 02 XX ; Start 05/13/18 at 02:00 Insulin Aspart (Novolog Insulin Pen) NOVOLOG *MILD* ALGORI... Q4 SC ; Start 05/12/18 at 17:00 Watson Mckay DO May 12, 2018 15:36
[2018-05-12] MEDS ORDERED: BUMETANIDE 3 MG in DEXTROSE 5% 18 ML IV ONE (16:00)
--- NOTE | 2018-05-12 16:16 | HP ---
DATE OF ADMISSION: 05/12/2018 IDENTIFICATION: This is a 67-year-old female. CHIEF COMPLAINT: Shortness of breath, hypertensive urgency. HISTORY OF PRESENT ILLNESS: A 67-year-old female with past medical history of CHF, uses CPAP at [facility], type 2 diabetes, hypertension who presents with shortness of breath. The symptoms have been going on for the last 7 to 8 days. She went to her primary care doctor 3 days ago, stating she could not breathe. She still has, however, been using her CPAP at night. She denied any upper or lower GI ble eding. No nausea, vomiting, no fevers or chills, no diarrhea or constipation. Because her symptoms have persisted, she and her family decided to bring her into the ER today. The patient has had multi ple admissions for CHF exacerbation and last time she was here at the hospital at [facility] was 01/25/2018 to 01/27/2018 for similar episode. When she arrived today, she was found to have a w dylan blood cell count of 12,000. No fevers. Her chest x-ray did show bilateral lower lung atelectas is and infiltrates with small bilateral pleural effusions. When she arrived, she has also elevated b lood pressure 213 systolic over 123 diastolic and received Lasix in the ER as well as nitroglycerin. Troponin has been negative x1. When the patient arrived to the ER, she did require BiPAP for a shor t time, but now has been weaned down to nasal cannula oxygen. PAST MEDICAL HISTORY: As stated above. ALLERGIES: SILDENAFIL. HOME MEDICINES: 1. Ventolin HFA inhale q.6 hours p.r.n. 2. Eliquis 5 mg b.i.d. 3. Amlodipine 10 mg daily. 4. Atorvastatin 20 mg at bedtime. 5. Coreg 12.5 mg b.i.d. 6. Digoxin 0.125 mg daily. 7. Losartan 100 mg daily. 8. Gabapentin 200 mg daily. 9. Ibuprofen 800 mg daily p.r.n. 10. Lasix 40 mg p.o. b.i.d. 11. Klor-Con 8 mEq p.o. b.i.d. 12. Glipizide 10 mg b.i.d. 13. Insulin Glargine 10 units b.i.d. 14. Metformin 1000 mg b.i.d. 15. Vitamin D2 50,000 units weekly. PAST SURGICAL HISTORY: Hysterectomy. SOCIAL HISTORY: Negative for smoking or drinking or IV drug abuse. FAMILY HISTORY: Noncontributory. PHYSICAL EXAMINATION: VITAL SIGNS: Today, T-max 99.0, pulse 74 to 89, respirations 35 to 24, blood pressure 213 to 165 sys tolic over 123 to 90 diastolic, satting at 95% on 2 liters nasal cannula. GENERAL: The patient is lying in bed, obese. Family member at the bedside. Alert, in mild distress . HEENT: Pupils are equal, round, reactive to light. Extraocular muscles are intact. NECK: Supple. No thyromegaly. LUNGS: Mild crackles heard at the bases bilaterally, slightly distant breath sounds bilaterally. CARDIOVASCULAR: Irregularly irregular rhythm; otherwise no rubs or gallops. ABDOMEN: Obese but otherwise soft, nontender, no rebound or guarding. MUSCULOSKELETAL: She has got 1+ pitting edema bilateral lower extremities to the mid calves. NEUROLOGIC: No focal deficits. LABORATORIES: The basic metabolic panel is normal except the glucose is 284. Calcium is normal. Ag ain, troponin negative x1. Coags show an INR of 1.25. Rest of the values is normal. WBC 12.0, hemo globin 13.1, hematocrit 43.7, platelets 214. DIAGNOSTIC DATA: The chest x-ray showed bilateral lower lung atelectasis and infiltrate with small b ilateral pleural effusions. ASSESSMENT AND PLAN: A 67-year-old female with shortness of breath over the last 7 to 8 days with si gns of congestive heart failure exacerbation and hypertensive urgency. 1. Shortness of breath again likely secondary to patient's congestive heart failure exacerbation. W e will admit the patient. Check TSH, A1c, lipid panel. Keep the head of the bed greater than 30 deg antonio. Diurese her. Per cardiology recommendations, put on Bumex 1 mg IV b.i.d. for now. Get PT and OT consults as well. For now, continue low-dose Norvasc and Cozaar. We will hold her home Coreg fo r now. Monitor daily weights and in's and out's. 2. Possible atrial fibrillation. Heart rate is rate controlled. Continue current cardiac medicatio ns and Eliquis for now. 3. Hypertension. Again, she came in hypertensive urgency. Blood pressure has improved since admiss ion. Again, continue current Bumex as well as Norvasc and Cozaar. Monitor blood pressure very caref renetta. 4. History of diabetes. Hold her home metformin and glipizide. We will continue her Lantus b.i.d. and put her on sliding scale insulin. Follow up A1c. 5. Obstructive sleep apnea. Continue CPAP at night and DuoNeb p.r.n. Of note, the patient likely h as also obesity hypoventilation syndrome. Continue same treatment plan. 6. History of morbid obesity. 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 Get PT and OT consults. 7. Deep venous thrombosis prophylaxis, Eliquis subcutaneously. 8. Gastrointestinal prophylaxis. PPI. Dictated By: SALENA CORTEZ/KIRBY Conf#: [id number] DID#: [id number] CC: ROSCOE RILEY DO; HALEY DOMINIQUE MD;*EndCC*
[2018-05-12 16:43] VITALS: BP 161/79; PULSE 57; RESP 18
[2018-05-12] MEDS: LEVOFLOXACIN 750MG/D5W (PMX) 150 ML IVPB SCH (17:16)
[2018-05-12 17:21] VITALS: Ht 154.9 cm; Wt 143.3 kg
[2018-05-12 17:55] VITALS: PULSE 70
[2018-05-12] MEDS ORDERED: FUROSEMIDE 40 MG INJ IV SCH (18:00)
[2018-05-12] MEDS: INSULIN ASPART [NOVOLOG] 3 ML PEN SC SCH ×2 (18:02→20:54)
[2018-05-12 19:27] VITALS: BP 133/69; PULSE 81; RESP 17
[2018-05-12 20:00] VITALS: PULSE 79
[2018-05-12] MEDS: APIXABAN 5 MG TABLET PO SCH (20:45)
[2018-05-12] MEDS: ATORVASTATIN 20 MG TAB PO SCH (20:45)
[2018-05-12] MEDS: POTASSIUM CHLORIDE (SR) 8 MEQ CAP PO SCH (20:45)
[2018-05-12] MEDS: INSULIN GLARGINE [LANtus] 3 ML PEN SC SCH (21:00)
[2018-05-12] MEDS ORDERED: INSULIN GLARGINE [LANTus] (100 UNITS/ML) SYG SC SCH (21:00)
[2018-05-12 21:22] VITALS: PULSE 86
[2018-05-13] VITALS (14 sets, daily range): BP systolic 122–159; BP diastolic 66–84; PULSE 69–88; RESP 18–22
[2018-05-13] MEDS: INSULIN ASPART [NOVOLOG] 3 ML PEN SC SCH ×6 (00:47→21:04)
[2018-05-13] MEDS ORDERED: ACCU-CHEK XX SCH (02:00)
[2018-05-13] MEDS: PANTOPRAZOLE (EC) 40 MG TAB PO SCH (05:40)
[2018-05-13] MEDS ORDERED: BUMETANIDE 1 MG INJ IV SCH (06:00)
[2018-05-13] MEDS: AMLODIPINE 10 MG TAB PO SCH (08:02)
[2018-05-13] MEDS: LOSARTAN 50 MG TAB PO SCH (08:02)
[2018-05-13] MEDS: APIXABAN 5 MG TABLET PO SCH ×2 (08:03→20:54)
[2018-05-13] MEDS: POTASSIUM CHLORIDE (SR) 8 MEQ CAP PO SCH ×2 (08:03→20:54)
[2018-05-13] MEDS: GABAPENTIN 100 MG CAP PO SCH (08:03)
[2018-05-13] MEDS: INSULIN GLARGINE [LANtus] 3 ML PEN SC SCH (08:09)
--- NOTE | 2018-05-13 12:39 | PN ---
Date/Time of Note Date/Time of Note DATE: 05/13/18 TIME: 12:34 Assessment/Plan VTE Prophylaxis Risk score (from Ns)>0 risk: 4 SCD applied (from Ns): No SCD contraindicated: other Pharmacological prophylaxis: apixaban Lines/Catheters IV [facility]atheter [facility]from [facility]): [place] Lock Urinary Cath still in place: Yes Reason Cath still needed: urinary retention Assessment/Plan Hospital Course S: Patient states she has less shortness of breath since yesterday. Seen by cardiology team yesterday. Still on Bumex. Used CPAP last night as scheduled. O: VS - see below PHYSICAL EXAMINATION: GENERAL: Sitting in chair, obese. Answering questions appropriately no acute distress HEENT: Pupils are equal, round, reactive to light. Extraocular muscles are intact. NECK: Supple. No thyromegaly. LUNGS: Mild crackles heard at the bases bilaterally, slightly distant breath sounds bilaterally. CARDIOVASCULAR: Irregularly irregular rhythm; otherwise no rubs or gallops. ABDOMEN: Obese but otherwise soft, nontender, no rebound or guarding. MUSCULOSKELETAL: 1+ pitting edema bilateral lower extremities to the mid calves. NEUROLOGIC: No focal deficits. ASSESSMENT AND PLAN: 67-year-old female with shortness of breath over the last 7 to 8 days with signs of congestive heart failure exacerbation and hypertensive urgency. 1. Shortness of breath -slowly improving, symptoms secondary to patient's congestive heart failure exacerbation. - -Continue diuresis with current Bumex medications, follow cardiology recommendations, keep the head of the bed greater than 30 degrees per cardiology recommendations, - - continue low-dose Norvasc and Cozaar. - Monitor daily weights and in's and out's. -Continue PT and OT 2. Possible atrial fibrillation. Heart rate is rate controlled. - Continue current cardiac medications and Eliquis for now. 3. Hypertension. Again, she came in hypertensive urgency. Blood pressure has improved since admission. - Again, continue current Bumex as well as Norvasc and Cozaar. - Monitor blood pressure very carefully. 4. History of diabetes. A1c equals 9.0 -Holding her home metformin and glipizide. - continue her Lantus b.i.d., moderate sliding scale insulin 5. Obstructive sleep apnea-no present issues. Of note, the patient likely has also obesity hypoventilation syndrome. - Continue CPAP at night and DuoNeb p.r.n. 6. History of morbid obesity. -Continue PT and OT, counseling services director on weight cessation. 7. Deep venous thrombosis prophylaxis, Eliquis subcutaneously. 8. Gastrointestinal prophylaxis. PPI. Result Diagram: 05/13/18 0547 05/13/18 0547 Results 24hrs Laboratory Tests Test 05/12/18 17:18 05/12/18 18:11 05/12/18 20:50 05/13/18 00:44 Bedside Glucose 199 180 138 Creatine Kinase 30 21 L Creatine Kinase 1.8 1.5 Index Creatinine Kinase MB 0.53 0.31 (Mass) Troponin I < 0.012 < 0.012 Test 05/13/18 04:39 05/13/18 05:47 05/13/18 07:49 05/13/18 11:51 Bedside Glucose 173 222 H 233 H White Blood Count 10.7 Red Blood Count 4.40 Hemoglobin 12.3 Hematocrit 40.7 Mean Corpuscular 92.5 Volume Mean Corpuscular 28.0 L Hemoglobin Mean Corpuscular 30.2 L Hemoglobin Concent Red Cell 14.6 H Distribution Width Platelet Count 216 Mean Platelet Volume 10.6 H Immature 0.400 Granulocytes % Neutrophils % 77.6 H Lymphocytes % 15.7 Monocytes % 5.6 Eosinophils % 0.2 Basophils % 0.5 Nucleated Red Blood 0.0 Cells % Immature 0.040 H Granulocytes # Neutrophils # 8.3 H Lymphocytes # 1.7 Monocytes # 0.6 Eosinophils # 0.0 Basophils # 0.1 Nucleated Red Blood 0.0 Cells # Sodium Level 141 Potassium Level 3.8 Chloride Level 95 L Carbon Dioxide Level 39 H Anion Gap 7 Blood Urea Nitrogen 12 Creatinine 0.74 Est Glomerular > 60 Filtrat Rate mL/min Glucose Level 180 # Hemoglobin A1c 9.2 H Calcium Level 9.5 Phosphorus Level 3.3 Magnesium Level 1.4 L Triglycerides Level 94 Cholesterol Level 87 L LDL Cholesterol, 33 Calculated HDL Cholesterol 35 Cholesterol/HDL 2.4 Ratio Thyroid Stimulating 2.710 Hormone (TSH) Exam/Review of Systems Exam Vitals Vital Signs Date Temp Pulse Resp B/P (MAP) Pulse Ox O2 O2 Flow FiO2 Time Delivery Rate 05/13/18 98.2 74 22 125/66 96 Nasal 3.0 12:01 (85) Cannula 05/13/18 35 04:15 Intake and Output 205/12/18 05/13/18 1515:00 23:00 07:00 IntakeIntake Total 150 ml 0 ml OutputOutput Total 200 ml 3000 ml BalanceBalance -50 ml -3000 ml Results Results 24hrs Laboratory Tests Test 05/12/18 17:18 05/12/18 18:11 05/12/18 20:50 05/13/18 00:44 Bedside Glucose 199 180 138 Creatine Kinase 30 21 L Creatine Kinase 1.8 1.5 Index Creatinine Kinase MB 0.53 0.31 (Mass) Troponin I < 0.012 < 0.012 Test 05/13/18 04:39 05/13/18 05:47 05/13/18 07:49 05/13/18 11:51 Bedside Glucose 173 222 H 233 H White Blood Count 10.7 Red Blood Count 4.40 Hemoglobin 12.3 Hematocrit 40.7 Mean Corpuscular 92.5 Volume Mean Corpuscular 28.0 L Hemoglobin Mean Corpuscular 30.2 L Hemoglobin Concent Red Cell 14.6 H Distribution Width Platelet Count 216 Mean Platelet Volume 10.6 H Immature 0.400 Granulocytes % Neutrophils % 77.6 H Lymphocytes % 15.7 Monocytes % 5.6 Eosinophils % 0.2 Basophils % 0.5 Nucleated Red Blood 0.0 Cells % Immature 0.040 H Granulocytes # Neutrophils # 8.3 H Lymphocytes # 1.7 Monocytes # 0.6 Eosinophils # 0.0 Basophils # 0.1 Nucleated Red Blood 0.0 Cells # Sodium Level 141 Potassium Level 3.8 Chloride Level 95 L Carbon Dioxide Level 39 H Anion Gap 7 Blood Urea Nitrogen 12 Creatinine 0.74 Est Glomerular > 60 Filtrat Rate mL/min Glucose Level 180 # Hemoglobin A1c 9.2 H Calcium Level 9.5 Phosphorus Level 3.3 Magnesium Level 1.4 L Triglycerides Level 94 Cholesterol Level 87 L LDL Cholesterol, 33 Calculated HDL Cholesterol 35 Cholesterol/HDL 2.4 Ratio Thyroid Stimulating 2.710 Hormone (TSH) Medications Medication Current Medications IV Flush (NS 3 ml) 3 ml PER PROTOCOL IV ; Start 05/12/18 at 14:30 Ondansetron HCl (Zofran Inj) 4 mg Q6H PRN IV NAUSEA/VOMITING; Start 05/12/18 at 14:30 Acetaminophen (Tylenol Tab) 650 mg Q6H PRN PO .PAIN 1-3 OR TEMP; Start 05/12/18 at 14:30 Acetaminophen/ Hydrocodone Bitart ([place] (5/325)) 1 tab Q6H PRN PO .MOD PAIN 4- 6; Start 05/12/18 at 14:30 Morphine Sulfate (morphine) 2 mg Q4H PRN IV .SEVERE PAIN 7-10; Start 05/12/18 at 14:30 Docusate Sodium (Colace) 100 mg Q12H PRN PO .CONSTIPATION; Start 05/12/18 at 14:30 Magnesium Hydroxide (Milk Of Mag) 30 ml DAILY PRN PO .CONSTIPATION; Start 05/12/18 at 14:30 Pantoprazole (Protonix Tab) 40 mg DAILY@06 PO ; Start 05/13/18 at 06:00 Lorazepam (Ativan) 0.5 mg Q6H PRN IV ANXIETY; Start 05/12/18 at 14:30 Albuterol/ Ipratropium (Duoneb) 3 ml Q4H RESP THERAPY PRN HHN SHORTNESS OF BREATH; Start 05/12/18 at 14:30 Hydralazine HCl (Apresoline) 10 mg Q6H PRN IV ELEVATED BLOOD PRESSURE; Start 05/12/18 at 14:30 Nitroglycerin (Nitroglycerin (Sl Tab) 0.4 Mg) 1 tab Q5M PRN SL ANGINA; Start 05/12/18 at 14:30 Albuterol (Proventil (O.r. Use Only)) 2 puff Q6H PRN INH WHEEZING AND SOB; Start 05/12/18 at 14:30 Amlodipine Besylate (Norvasc) 10 mg DAILY PO Last administered on 05/13/18at 08:02; Admin Dose 10 MG; Start 05/13/18 at 09:00 Apixaban (Eliquis) 5 mg BID PO Last administered on 05/13/18at 08:03; Admin Dose 5 MG; Start 05/12/18 at 21:00 Atorvastatin Calcium (Lipitor) 20 mg QHS PO Last administered on 05/12/18at 20:45; Admin Dose 20 MG; Start 05/12/18 at 21:00 Digoxin (Digoxin) 0.25 mg DAILY@1300 PO ; Start 05/13/18 at 13:00 Gabapentin (Neurontin) 200 mg DAILY PO Last administered on 05/13/18at 08:03; Admin Dose 200 MG; Start 05/13/18 at 09:00 Insulin Glargine (Lantus) 10 unit BID SC Last administered on 05/13/18at 08:09; Admin Dose 10 UNIT; Start 05/12/18 at 21:00 Losartan Potassium (Cozaar) 100 mg DAILY PO Last administered on 05/13/18at 08:02; Admin Dose 100 MG; Start 05/13/18 at 09:00 Potassium Chloride (Micro-K) 8 meq BID PO Last administered on 05/13/18at 08:03; Admin Dose 8 MEQ; Start 05/12/18 at 21:00 Diagnostic Test (Pha) (Accu-Chek) 1 ea 02 XX Last administered on 05/13/18at 01:54; Admin Dose 1 EA; Start 05/13/18 at 02:00 Bumetanide (Bumex) 1 mg BID DIURETICS IV Last administered on 05/13/18at 05:40; Admin Dose 1 MG; Start 05/13/18 at 06:00 Levofloxacin/ Dextrose 150 ml @ 100 mls/hr Q24H IVPB Last administered on 05/12/18at 17:16; Admin Dose 100 MLS/HR; Start 05/12/18 at 16:00 Magnesium Sulfate 3 gm/Dextrose 106 ml @ 35.333 mls/ hr ONCE ONCE IVPB ; Start 05/13/18 at 12:30; Stop 05/13/18 at 15:29; Status UNV Miscellaneous Information (* Miscellaneous Pharmacy Order) Discontinue current oral sulfonylur... ONCE ONCE XX ; Start 05/13/18 at 12:30; Stop 05/13/18 at 12:31; Status UNV Diagnostic Test (Pha) (Accu-Chek) 1 ea 02 XX ; Start 05/14/18 at 02:00; Status UNV Miscellaneous Information (* Miscellaneous Pharmacy Order) HYPOGLYCEMIA PROTOCOL w... ONCE ONCE XX ; Start 05/13/18 at 12:30; Stop 05/13/18 at 12:31; Status UNV Insulin Aspart (Novolog Insulin Pen) NOVOLOG *MODERATE* ALGORITHM WITH MEALS BEDTIME SC ; Start 05/13/18 at 17:55; Status UNV Miscellaneous Information (* Miscellaneous Pharmacy Order) Discontinue all previ... ONCE ONCE XX ; Start 05/13/18 at 12:30; Stop 05/13/18 at 12:31; Status SALENA BERGER May 13, 2018 12:39
[2018-05-13] MEDS ORDERED: GLUCOSE GEL 15 GRAM TUBE BUCCAL PRN (13:00)
[2018-05-13] MEDS ORDERED: GLUCAGON 1 MG INJ IM PRN (13:00)
[2018-05-13] MEDS ORDERED: GLUCOSE GEL 15 GRAM TUBE PO PRN ×2 (13:00)
[2018-05-13] MEDS ORDERED: DEXTROSE 50% 50 ML SYRINGE IV PRN ×2 (13:00)
[2018-05-13] MEDS: DIGOXIN 0.25 MG TAB PO SCH (13:12)
[2018-05-13] MEDS ORDERED: MAGNESIUM SULFATE 3 GM in DEXTROSE 5% 100 ML IVPB ONE (14:00)
[2018-05-13] MEDS ORDERED: POTASSIUM CHLORIDE (SR) 20 MEQ TAB PO STA (15:53)
--- NOTE | 2018-05-13 15:55 | CONS ---
Assessment/Plan Cardiology NYHA: II Heart Failure Type: Acute on Chronic Heart Failure Type: Diastolic Assessment/Plan Hospital Course (Demo Recall) Acute decompensated diastolic congestive heart failure Preserved ejection fraction Atrial fibrillation Hypertension Diabetes Morbid obesity Obstructive sleep apnea Likely obesity hypoventilation syndrome -Patient with evidence of significant volume overload but improving. Continue IV diuretics with repeat Bumex drip this afternoon -Blood pressure control -Continue Eliquis if no contraindication -Maintain potassium above 4.0 and magnesium above 2.0. Consultation Date/Type/Reason Admit Date/Time May 12, 2018 at 13:02 Initial Consult Date Type of Consult Cardiology Date/Time of Note DATE: 05/13/18 TIME: 15:52 24 HR Interval Summary Free Text/Dictation Shortness of breath is much better. Denies chest pain, palpitations Exam/Review of Systems Vital Signs Vitals Vital Signs Date Temp Pulse Resp B/P (MAP) Pulse Ox O2 O2 Flow FiO2 Time Delivery Rate 05/13/18 3.0 13:24 05/13/18 98.2 74 22 125/66 96 Nasal 12:01 (85) Cannula 05/13/18 35 04:15 Intake and Output 05/12/18 05/12/18 05/13/18 1515:00 23:00 07:00 IntakeIntake Total 150 ml 0 ml OutputOutput Total 200 ml 3000 ml BalanceBalance -50 ml -3000 ml Exam Constitutional: alert, oriented (Morbidly obese, no apparent distress) Head: normocephalic Respiratory: other (Coarse breath sounds bilaterally, no wheezing) Cardiovascular: irregular rhythm, other (S1-S2 heard) Gastrointestinal: soft, non-tender, bowel sounds Extremities: edema Labs Result Diagram: 05/13/18 0547 05/13/18 0547 Results 24hrs Laboratory Tests Test 05/12/18 17:18 05/12/18 18:11 05/12/18 20:50 05/13/18 00:44 Bedside Glucose 199 180 138 Creatine Kinase 30 21 L Creatine Kinase 1.8 1.5 Index Creatinine Kinase MB 0.53 0.31 (Mass) Troponin I < 0.012 < 0.012 Test 05/13/18 04:39 05/13/18 05:47 05/13/18 07:49 05/13/18 11:51 Bedside Glucose 173 222 H 233 H White Blood Count 10.7 Red Blood Count 4.40 Hemoglobin 12.3 Hematocrit 40.7 Mean Corpuscular 92.5 Volume Mean Corpuscular 28.0 L Hemoglobin Mean Corpuscular 30.2 L Hemoglobin Concent Red Cell 14.6 H Distribution Width Platelet Count 216 Mean Platelet Volume 10.6 H Immature 0.400 Granulocytes % Neutrophils % 77.6 H Lymphocytes % 15.7 Monocytes % 5.6 Eosinophils % 0.2 Basophils % 0.5 Nucleated Red Blood 0.0 Cells % Immature 0.040 H Granulocytes # Neutrophils # 8.3 H Lymphocytes # 1.7 Monocytes # 0.6 Eosinophils # 0.0 Basophils # 0.1 Nucleated Red Blood 0.0 Cells # Sodium Level 141 Potassium Level 3.8 Chloride Level 95 L Carbon Dioxide Level 39 H Anion Gap 7 Blood Urea Nitrogen 12 Creatinine 0.74 Est Glomerular > 60 Filtrat Rate mL/min Glucose Level 180 # Hemoglobin A1c 9.2 H Calcium Level 9.5 Phosphorus Level 3.3 Magnesium Level 1.4 L Triglycerides Level 94 Cholesterol Level 87 L LDL Cholesterol, 33 Calculated HDL Cholesterol 35 Cholesterol/HDL 2.4 Ratio Thyroid Stimulating 2.710 Hormone (TSH) Medications Medications Current Medications IV Flush (NS 3 ml) 3 ml PER PROTOCOL IV ; Start 05/12/18 at 14:30 Ondansetron HCl (Zofran Inj) 4 mg Q6H PRN IV NAUSEA/VOMITING; Start 05/12/18 at 14:30 Acetaminophen (Tylenol Tab) 650 mg Q6H PRN PO .PAIN 1-3 OR TEMP; Start 05/12/18 at 14:30 Acetaminophen/ Hydrocodone Bitart ([place] (5/325)) 1 tab Q6H PRN PO .MOD PAIN 4- 6; Start 05/12/18 at 14:30 Morphine Sulfate (morphine) 2 mg Q4H PRN IV .SEVERE PAIN 7-10; Start 05/12/18 at 14:30 Docusate Sodium (Colace) 100 mg Q12H PRN PO .CONSTIPATION; Start 05/12/18 at 14:30 Magnesium Hydroxide (Milk Of Mag) 30 ml DAILY PRN PO .CONSTIPATION; Start 05/12/18 at 14:30 Pantoprazole (Protonix Tab) 40 mg DAILY@06 PO ; Start 05/13/18 at 06:00 Lorazepam (Ativan) 0.5 mg Q6H PRN IV ANXIETY; Start 05/12/18 at 14:30 Albuterol/ Ipratropium (Duoneb) 3 ml Q4H RESP THERAPY PRN HHN SHORTNESS OF BREATH; Start 05/12/18 at 14:30 Hydralazine HCl (Apresoline) 10 mg Q6H PRN IV ELEVATED BLOOD PRESSURE; Start 05/12/18 at 14:30 Nitroglycerin (Nitroglycerin (Sl Tab) 0.4 Mg) 1 tab Q5M PRN SL ANGINA; Start 05/12/18 at 14:30 Albuterol (Proventil (O.r. Use Only)) 2 puff Q6H PRN INH WHEEZING AND SOB; Start 05/12/18 at 14:30 Amlodipine Besylate (Norvasc) 10 mg DAILY PO Last administered on 05/13/18 08:02; Admin Dose 10 MG; Start 05/13/18 at 09:00 Apixaban (Eliquis) 5 mg BID PO Last administered on 05/13/18 08:03; Admin Dose 5 MG; Start 05/12/18 at 21:00 Atorvastatin Calcium (Lipitor) 20 mg QHS PO Last administered on 05/12/18 20:45; Admin Dose 20 MG; Start 05/12/18 at 21:00 Digoxin (Digoxin) 0.25 mg DAILY@1300 PO Last administered on 05/13/18 13:12; Admin Dose 0.25 MG; Start 05/13/18 at 13:00 Gabapentin (Neurontin) 200 mg DAILY PO Last administered on 05/13/18 08:03; Admin Dose 200 MG; Start 05/13/18 at 09:00 Insulin Glargine (Lantus) 10 unit BID SC Last administered on 05/13/18 08:09; Admin Dose 10 UNIT; Start 05/12/18 at 21:00 Losartan Potassium (Cozaar) 100 mg DAILY PO Last administered on 05/13/18 08:02; Admin Dose 100 MG; Start 05/13/18 at 09:00 Potassium Chloride (Micro-K) 8 meq BID PO Last administered on 05/13/18 08:03; Admin Dose 8 MEQ; Start 05/12/18 at 21:00 Bumetanide (Bumex) 1 mg BID DIURETICS IV Last administered on 05/13/18 05:40; Admin Dose 1 MG; Start 05/13/18 at 06:00 Levofloxacin/ Dextrose 150 ml @ 100 mls/hr Q24H IVPB Last administered on 05/12at 17:16; Admin Dose 100 MLS/HR; Start 05/12/18 at 16:00 Magnesium Sulfate 3 gm/Dextrose 106 ml @ 35.333 mls/ hr ONCE ONCE IVPB Last administered on 05/13/18at 13:13; Admin Dose 35.333 MLS/HR; Start 05/13/18 at 14:00; Stop 05/13/18 at 16:59 Diagnostic Test (Pha) (Accu-Chek) 1 ea 02 XX ; Start 05/14/18 at 02:00 Insulin Aspart (Novolog Insulin Pen) NOVOLOG *MODERATE* ALGORITHM WITH MEALS BEDTIME SC ; Start 05/13/18 at 17:55 Miscellaneous Information 1 ea NOTE XX ; Start 05/13/18 at 13:00 Glucose (Glutose) 15 gm Q15M PRN PO DECREASED GLUCOSE; Start 05/13/18 at 13:00 Glucose (Glutose) 22.5 gm Q15M PRN PO DECREASED GLUCOSE; Start 05/13/18 at 13:00 Dextrose (D50w Syringe) 25 ml Q15M PRN IV DECREASED GLUCOSE; Start 05/13/18 at 13:00 Dextrose (D50w Syringe) 50 ml Q15M PRN IV DECREASED GLUCOSE; Start 05/13/18 at 13:00 Glucagon (Glucagen) 1 mg Q15M PRN IM DECREASED GLUCOSE; Start 05/13/18 at 13:00 Glucose (Glutose) 15 gm Q15M PRN BUCCAL DECREASED GLUCOSE; Start 05/13/18 at 13:00 Watson Mckay DO May 13, 2018 15:55
[2018-05-13] MEDS: LEVOFLOXACIN 750MG/D5W (PMX) 150 ML IVPB SCH (16:37)
[2018-05-13] MEDS ORDERED: ALBUTEROL HFA 8 GM INHALER INH PRN (17:00)
[2018-05-13] MEDS ORDERED: BUMETANIDE 3 MG in DEXTROSE 5% 18 ML IV ONE (17:30)
[2018-05-13] MEDS ORDERED: MAGNESIUM SULFATE 4 GM/100 ML 100 ML IVPB ONE (17:30)
[2018-05-13] MEDS: ATORVASTATIN 20 MG TAB PO SCH (20:53)
[2018-05-13] MEDS: METOPROLOL 25 MG TAB PO SCH (20:54)
[2018-05-13] MEDS: INSULIN GLARGINE [LANTus] (100 UNITS/ML) SYG SC SCH (23:14)
[2018-05-14] VITALS (15 sets, daily range): BP systolic 123–158; BP diastolic 69–89; PULSE 53–92; RESP 18–22
[2018-05-14] MEDS: ACCU-CHEK XX SCH (02:00)
[2018-05-14] MEDS: BUMETANIDE 1 MG INJ IV SCH ×2 (06:36→17:22)
[2018-05-14] MEDS: PANTOPRAZOLE (EC) 40 MG TAB PO SCH (06:36)
--- NOTE | 2018-05-14 07:28 | CONS ---
Assessment/Plan Cardiology NYHA: II Heart Failure Type: Acute on Chronic Heart Failure Type: Diastolic Assessment/Plan Assessment/Plan (Daily) Acute decompensated diastolic congestive heart failure Preserved ejection fraction Atrial fibrillation Hypertension Diabetes Morbid obesity Obstructive sleep apnea Likely obesity hypoventilation syndrome -Patient with evidence of significant volume overload but improving. Continue IV diureticsand s/p bumex drip. BMP pending -Blood pressure control -Continue Eliquis if no contraindication -Maintain potassium above 4.0 and magnesium above 2.0. Consultation Date/Type/Reason Admit Date/Time May 12, 2018 at 13:02 Initial Consult Date Type of Consult Cardiology Date/Time of Note DATE: 05/14/18 TIME: 07:28 24 HR Interval Summary Free Text/Dictation The patient sable overnight Exam/Review of Systems Vital Signs Vitals Vital Signs Date Temp Pulse Resp B/P (MAP) Pulse Ox O2 O2 Flow FiO2 Time Delivery Rate 05/14/18 75 04:00 05/14/18 3.0 03:56 05/14/18 98.2 22 154/89 93 03:45 (110) 05/13/18 Nasal 21:55 Cannula 05/13/18 35 04:15 Intake and Output 05/13/18 05/13/18 05/14/18 1515:00 23:00 07:00 IntakeIntake Total 1156 ml 450 ml OutputOutput Total 780 ml 1800 ml BalanceBalance 376 ml -1350 ml Labs Result Diagram: 05/14/18 0611 05/13/18 0547 Results 24hrs Laboratory Tests Test 05/13/18 07:49 05/13/18 11:51 05/13/18 16:40 05/13/18 20:52 Bedside Glucose 222 H 233 H 263 H 243 H Test 05/13/18 23:12 05/14/18 02:40 05/14/18 06:11 Bedside Glucose 221 H 194 White Blood Count 10.4 Red Blood Count 4.65 Hemoglobin 13.1 Hematocrit 43.9 Mean Corpuscular 94.4 Volume Mean Corpuscular 28.2 L Hemoglobin Mean Corpuscular 29.8 L Hemoglobin Concent Red Cell 14.6 H Distribution Width Platelet Count 235 Mean Platelet Volume 10.7 H Immature 0.400 Granulocytes % Neutrophils % 74.8 Lymphocytes % 17.6 Monocytes % 6.6 Eosinophils % 0.3 Basophils % 0.3 Nucleated Red Blood 0.0 Cells % Immature 0.040 H Granulocytes # Neutrophils # 7.8 H Lymphocytes # 1.8 Monocytes # 0.7 Eosinophils # 0.0 Basophils # 0.0 Nucleated Red Blood 0.0 Cells # Medications Medications Current Medications IV Flush (NS 3 ml) 3 ml PER PROTOCOL IV ; Start 05/12/18 at 14:30 Ondansetron HCl (Zofran Inj) 4 mg Q6H PRN IV NAUSEA/VOMITING; Start 05/12/18 at 14:30 Acetaminophen (Tylenol Tab) 650 mg Q6H PRN PO .PAIN 1-3 OR TEMP; Start 05/12/18 at 14:30 Acetaminophen/ Hydrocodone Bitart ([place] (5/325)) 1 tab Q6H PRN PO .MOD PAIN 4- 6; Start 05/12/18 at 14:30 Morphine Sulfate (morphine) 2 mg Q4H PRN IV .SEVERE PAIN 7-10; Start 05/12/18 at 14:30 Docusate Sodium (Colace) 100 mg Q12H PRN PO .CONSTIPATION; Start 05/12/18 at 14:30 Magnesium Hydroxide (Milk Of Mag) 30 ml DAILY PRN PO .CONSTIPATION; Start 05/12/18 at 14:30 Pantoprazole (Protonix Tab) 40 mg DAILY@06 PO Last administered on 05/14/18at 06:36; Admin Dose 40 MG; Start 05/13/18 at 06:00 Lorazepam (Ativan) 0.5 mg Q6H PRN IV ANXIETY; Start 05/12/18 at 14:30 Albuterol/ Ipratropium (Duoneb) 3 ml Q4H RESP THERAPY PRN HHN SHORTNESS OF BREATH; Start 05/12/18 at 14:30 Hydralazine HCl (Apresoline) 10 mg Q6H PRN IV ELEVATED BLOOD PRESSURE; Start 05/12/18 at 14:30 Nitroglycerin (Nitroglycerin (Sl Tab) 0.4 Mg) 1 tab Q5M PRN SL ANGINA; Start 05/12/18 at 14:30 Amlodipine Besylate (Norvasc) 10 mg DAILY PO Last administered on 05/13/18at 08:02; Admin Dose 10 MG; Start 05/13/18 at 09:00 Apixaban (Eliquis) 5 mg BID PO Last administered on 05/13/18 20:54; Admin Dose 5 MG; Start 05/12/18 at 21:00 Atorvastatin Calcium (Lipitor) 20 mg QHS PO Last administered on 05/13/18at 20:53; Admin Dose 20 MG; Start 05/12/18 at 21:00 Digoxin (Digoxin) 0.25 mg DAILY@1300 PO Last administered on 05/13/18at 13:12; Admin Dose 0.25 MG; Start 05/13/18 at 13:00 Gabapentin (Neurontin) 200 mg DAILY PO Last administered on 05/13/18 08:03; Admin Dose 200 MG; Start 05/13/18 at 09:00 Losartan Potassium (Cozaar) 100 mg DAILY PO Last administered on 05/13/18 08:02; Admin Dose 100 MG; Start 05/13/18 at 09:00 Potassium Chloride (Micro-K) 8 meq BID PO Last administered on 05/13/18at 20:54; Admin Dose 8 MEQ; Start 05/12/18 at 21:00 Levofloxacin/ Dextrose 150 ml @ 100 mls/hr Q24H IVPB Last administered on 05/13/18at 16:37; Admin Dose 100 MLS/HR; Start 05/12/18 at 16:00 Diagnostic Test (Pha) (Accu-Chek) 1 ea 02 XX ; Start 05/14/18 at 02:00 Insulin Aspart (Novolog Insulin Pen) NOVOLOG *MODERATE* ALGORITHM WITH MEALS BEDTIME SC Last administered on 05/13/18at 21:04; Admin Dose 2 UNIT; Start 05/13/18 at 17:55 Miscellaneous Information 1 ea NOTE XX ; Start 05/13/18 at 13:00 Glucose (Glutose) 15 gm Q15M PRN PO DECREASED GLUCOSE; Start 05/13/18 at 13:00 Glucose (Glutose) 22.5 gm Q15M PRN PO DECREASED GLUCOSE; Start 05/13/18 at 13:00 Dextrose (D50w Syringe) 25 ml Q15M PRN IV DECREASED GLUCOSE; Start 05/13/18 at 13:00 Dextrose (D50w Syringe) 50 ml Q15M PRN IV DECREASED GLUCOSE; Start 05/13/18 at 13:00 Glucagon (Glucagen) 1 mg Q15M PRN IM DECREASED GLUCOSE; Start 05/13/18 at 13:00 Glucose (Glutose) 15 gm Q15M PRN BUCCAL DECREASED GLUCOSE; Start 05/13/18 at 13:00 Bumetanide (Bumex) 1 mg BID DIURETICS IV Last administered on 05/14/18at 06:36; Admin Dose 1 MG; Start 05/14/18 at 06:00 Metoprolol Tartrate (Lopressor) 25 mg BID PO Last administered on 05/13/18at 20:54; Admin Dose 25 MG; Start 05/13/18 at 21:00 Albuterol (Ventolin Hfa) 2 puff Q6H RESP THERAPY PRN INH WHEEZING AND SOB; Start 05/13/18 at 17:00 Insulin Glargine (Lantus) 10 units BID SC Last administered on 05/13/18at 23:14; Admin Dose 10 UNITS; Start 05/13/18 at 22:00 LISA GRANADOS MD May 14, 2018 07:28
[2018-05-14] MEDS: GABAPENTIN 100 MG CAP PO SCH (08:02)
[2018-05-14] MEDS: LOSARTAN 50 MG TAB PO SCH (08:03)
[2018-05-14] MEDS: METOPROLOL 25 MG TAB PO SCH ×2 (08:03→21:22)
[2018-05-14] MEDS: APIXABAN 5 MG TABLET PO SCH ×2 (08:03→21:21)
[2018-05-14] MEDS: POTASSIUM CHLORIDE (SR) 8 MEQ CAP PO SCH ×2 (08:03→21:22)
[2018-05-14] MEDS: AMLODIPINE 10 MG TAB PO SCH (08:04)
[2018-05-14] MEDS: INSULIN GLARGINE [LANTus] (100 UNITS/ML) SYG SC SCH ×2 (08:08→23:07)
[2018-05-14] MEDS: INSULIN ASPART [NOVOLOG] 3 ML PEN SC SCH ×6 (08:08→21:39)
[2018-05-14] MEDS: DIGOXIN 0.25 MG TAB PO SCH (14:00)
--- NOTE | 2018-05-14 15:35 | PN ---
Date/Time of Note Date/Time of Note DATE: 05/14/18 TIME: 15:33 Assessment/Plan VTE Prophylaxis Risk score (from Ns)>0 risk: 4 SCD applied (from Ns): No SCD contraindicated: other Pharmacological prophylaxis: apixaban Lines/Catheters IV Catheter Type (from [place]): [place] Urinary Cath still in place: Yes Reason Cath still needed: urinary retention Assessment/Plan Hospital Course S: Patient apparently tried to use her home CPAP last night here in the hospital, however the correct oxygen delivery and use of the CPAP was not adequate so her CO2 was higher this morning. Now presently wearing hospital CPAP mask with no issues. No acute other events overnight otherwise. O: VS - see below PHYSICAL EXAMINATION: GENERAL: Sitting in chair, obese. Wearing CPAP mask, answering questions appropriately no acute distress HEENT: Pupils are equal, round, reactive to light. Extraocular muscles are intact. NECK: Supple. No thyromegaly. LUNGS: Mild crackles heard at the bases bilaterally, slightly distant breath sounds bilaterally. CARDIOVASCULAR: Irregularly irregular rhythm; otherwise no rubs or gallops. ABDOMEN: Obese but otherwise soft, nontender, no rebound or guarding. MUSCULOSKELETAL: 1+ pitting edema bilateral lower extremities to the mid calves. NEUROLOGIC: No focal deficits. ASSESSMENT AND PLAN: 67-year-old female with shortness of breath over the last 7 to 8 days with signs of congestive heart failure exacerbation and hypertensive urgency. 1. Shortness of breath -slowly improving, symptoms secondary to patient's congestive heart failure exacerbation. -Continue diuresis with current Bumex medications, follow cardiology recommendations, keep the head of the bed greater than 30 degrees per cardiology recommendations, - - continue low-dose Norvasc and Cozaar. - Monitor daily weights and in's and out's. -Continue PT and OT 2. Possible atrial fibrillation. Heart rate is rate controlled. - Continue current cardiac medications and Eliquis for now. 3. Hypertension. Again, she came in hypertensive urgency. Blood pressure has improved since admission. - Again, continue current Bumex as well as Norvasc and Cozaar. - Monitor blood pressure very carefully. 4. History of diabetes. A1c equals 9.0 -Holding her home metformin and glipizide. - continue her Lantus b.i.d., moderate sliding scale insulin 5. Obstructive sleep apnea-no present issues. Of note, the patient likely has also obesity hypoventilation syndrome. - Continue CPAP at night and DuoNeb p.r.n. 6. History of morbid obesity. -Continue PT and OT, counseled on weight cessation. 7. Deep venous thrombosis prophylaxis, Eliquis subcutaneously. 8. Gastrointestinal prophylaxis. PPI. Result Diagram: 05/14/18 0611 05/14/18 0611 Results 24hrs Laboratory Tests Test 05/13/18 16:40 05/13/18 20:52 05/13/18 23:12 05/14/18 02:40 Bedside Glucose 263 H 243 H 221 H 194 Test 05/14/18 06:11 05/14/18 08:01 05/14/18 11:35 White Blood Count 10.4 Red Blood Count 4.65 Hemoglobin 13.1 Hematocrit 43.9 Mean Corpuscular 94.4 Volume Mean Corpuscular 28.2 L Hemoglobin Mean Corpuscular 29.8 L Hemoglobin Concent Red Cell 14.6 H Distribution Width Platelet Count 235 Mean Platelet Volume 10.7 H Immature 0.400 Granulocytes % Neutrophils % 74.8 Lymphocytes % 17.6 Monocytes % 6.6 Eosinophils % 0.3 Basophils % 0.3 Nucleated Red Blood 0.0 Cells % Immature 0.040 H Granulocytes # Neutrophils # 7.8 H Lymphocytes # 1.8 Monocytes # 0.7 Eosinophils # 0.0 Basophils # 0.0 Nucleated Red Blood 0.0 Cells # Sodium Level 141 Potassium Level 4.4 Chloride Level 91 L Carbon Dioxide Level 41 *H Anion Gap 9 Blood Urea Nitrogen 14 Creatinine 0.85 Est Glomerular > 60 Filtrat Rate mL/min Glucose Level 262 H Calcium Level 9.8 Phosphorus Level 3.4 Magnesium Level 1.9 Bedside Glucose 239 H 277 H Exam/Review of Systems Exam Vitals Vital Signs Date Temp Pulse Resp B/P (MAP) Pulse Ox O2 O2 Flow FiO2 Time Delivery Rate 05/14/18 89 97 35 15:00 05/14/18 98.6 18 144/75 11:52 (98) 05/14/18 Nasal 3.0 07:38 Cannula Intake and Output 05/13/18 05/13/18 05/14/18 1515:00 23:00 07:00 IntakeIntake Total 1156 ml 450 ml OutputOutput Total 780 ml 1800 ml BalanceBalance 376 ml -1350 ml Results Results 24hrs Laboratory Tests Test 05/13/18 16:40 05/13/18 20:52 05/13/18 23:12 05/14/18 02:40 Bedside Glucose 263 H 243 H 221 H 194 Test 05/14/18 06:11 05/14/18 08:01 05/14/18 11:35 White Blood Count 10.4 Red Blood Count 4.65 Hemoglobin 13.1 Hematocrit 43.9 Mean Corpuscular 94.4 Volume Mean Corpuscular 28.2 L Hemoglobin Mean Corpuscular 29.8 L Hemoglobin Concent Red Cell 14.6 H Distribution Width Platelet Count 235 Mean Platelet Volume 10.7 H Immature 0.400 Granulocytes % Neutrophils % 74.8 Lymphocytes % 17.6 Monocytes % 6.6 Eosinophils % 0.3 Basophils % 0.3 Nucleated Red Blood 0.0 Cells % Immature 0.040 H Granulocytes # Neutrophils # 7.8 H Lymphocytes # 1.8 Monocytes # 0.7 Eosinophils # 0.0 Basophils # 0.0 Nucleated Red Blood 0.0 Cells # Sodium Level 141 Potassium Level 4.4 Chloride Level 91 L Carbon Dioxide Level 41 *H Anion Gap 9 Blood Urea Nitrogen 14 Creatinine 0.85 Est Glomerular > 60 Filtrat Rate mL/min Glucose Level 262 H Calcium Level 9.8 Phosphorus Level 3.4 Magnesium Level 1.9 Bedside Glucose 239 H 277 H Medications Medication Current Medications IV Flush (NS 3 ml) 3 ml PER PROTOCOL IV ; Start 05/12/18 at 14:30 Ondansetron HCl (Zofran Inj) 4 mg Q6H PRN IV NAUSEA/VOMITING; Start 05/12/18 at 14:30 Acetaminophen (Tylenol Tab) 650 mg Q6H PRN PO .PAIN 1-3 OR TEMP; Start 05/12/18 at 14:30 Acetaminophen/ Hydrocodone Bitart ([place] (5/325)) 1 tab Q6H PRN PO .MOD PAIN 4- 6; Start 05/12/18 at 14:30 Morphine Sulfate (morphine) 2 mg Q4H PRN IV .SEVERE PAIN 7-10; Start 05/12/18 at 14:30 Docusate Sodium (Colace) 100 mg Q12H PRN PO .CONSTIPATION; Start 05/12/18 at 14:30 Magnesium Hydroxide (Milk Of Mag) 30 ml DAILY PRN PO .CONSTIPATION; Start 05/12/18 at 14:30 Pantoprazole (Protonix Tab) 40 mg DAILY@06 PO Last administered on 05/14/18 06:36; Admin Dose 40 MG; Start 05/13/18 at 06:00 Lorazepam (Ativan) 0.5 mg Q6H PRN IV ANXIETY; Start 05/12/18 at 14:30 Albuterol/ Ipratropium (Duoneb) 3 ml Q4H RESP THERAPY PRN HHN SHORTNESS OF BREATH; Start 05/12/18 at 14:30 Hydralazine HCl (Apresoline) 10 mg Q6H PRN IV ELEVATED BLOOD PRESSURE; Start 05/12/18 at 14:30 Nitroglycerin (Nitroglycerin (Sl Tab) 0.4 Mg) 1 tab Q5M PRN SL ANGINA; Start 05/12/18 at 14:30 Amlodipine Besylate (Norvasc) 10 mg DAILY PO Last administered on 05/14/18 08:04; Admin Dose 10 MG; Start 05/13/18 at 09:00 Apixaban (Eliquis) 5 mg BID PO Last administered on 05/14/18 08:03; Admin Dose 5 MG; Start 05/12/18 at 21:00 Atorvastatin Calcium (Lipitor) 20 mg QHS PO Last administered on 05/13/18 20:53; Admin Dose 20 MG; Start 05/12/18 at 21:00 Digoxin (Digoxin) 0.25 mg DAILY@1300 PO Last administered on 05/14/18 14:00; Admin Dose 0.25 MG; Start 05/13/18 at 13:00 Gabapentin (Neurontin) 200 mg DAILY PO Last administered on 05/14/18 08:02; Admin Dose 200 MG; Start 05/13/18 at 09:00 Losartan Potassium (Cozaar) 100 mg DAILY PO Last administered on 05/14/18 08:03; Admin Dose 100 MG; Start 05/13/18 at 09:00 Potassium Chloride (Micro-K) 8 meq BID PO Last administered on 05/14/18 08:03; Admin Dose 8 MEQ; Start 05/12/18 at 21:00 Levofloxacin/ Dextrose 150 ml @ 100 mls/hr Q24H IVPB Last administered on 05/13/18 16:37; Admin Dose 100 MLS/HR; Start 05/12/18 at 16:00; Stop 05/14/18 at 23:45 Diagnostic Test (Pha) (Accu-Chek) 1 ea 02 XX ; Start 05/14/18 at 02:00 Insulin Aspart (Novolog Insulin Pen) NOVOLOG *MODERATE* ALGORITHM WITH MEALS BEDTIME SC Last administered on 05/14/18at 11:42; Admin Dose 8 UNIT; Start 05/13/18 at 17:55 Miscellaneous Information 1 ea NOTE XX ; Start 05/13/18 at 13:00 Glucose (Glutose) 15 gm Q15M PRN PO DECREASED GLUCOSE; Start 05/13/18 at 13:00 Glucose (Glutose) 22.5 gm Q15M PRN PO DECREASED GLUCOSE; Start 05/13/18 at 13:00 Dextrose (D50w Syringe) 25 ml Q15M PRN IV DECREASED GLUCOSE; Start 05/13/18 at 13:00 Dextrose (D50w Syringe) 50 ml Q15M PRN IV DECREASED GLUCOSE; Start 05/13/18 at 13:00 Glucagon (Glucagen) 1 mg Q15M PRN IM DECREASED GLUCOSE; Start 05/13/18 at 13:00 Glucose (Glutose) 15 gm Q15M PRN BUCCAL DECREASED GLUCOSE; Start 05/13/18 at 13:00 Bumetanide (Bumex) 1 mg BID DIURETICS IV Last administered on 05/14/18at 06:36; Admin Dose 1 MG; Start 05/14/18 at 06:00 Metoprolol Tartrate (Lopressor) 25 mg BID PO Last administered on 05/14/18at 08:03; Admin Dose 25 MG; Start 05/13/18 at 21:00 Albuterol (Ventolin Hfa) 2 puff Q6H RESP THERAPY PRN INH WHEEZING AND SOB; Start 05/13/18 at 17:00 Insulin Glargine (Lantus) 10 units BID SC Last administered on 05/14/18at 08:08; Admin Dose 10 UNITS; Start 05/13/18 at 22:00 Insulin Aspart (Novolog Insulin Pen) 6 unit WITH MEALS BEDTIME SC ; Start 05/14/18 at 17:55 Levofloxacin (Levaquin) 750 mg DAILY@06 PO ; Start 05/15/18 at 06:00 SALENA CARRILLO May 14, 2018 15:35
[2018-05-14] MEDS: LEVOFLOXACIN 750MG/D5W (PMX) 150 ML IVPB SCH (17:05)
[2018-05-14] MEDS: ATORVASTATIN 20 MG TAB PO SCH (21:21)
[2018-05-15] VITALS (12 sets, daily range): BP systolic 124–171; BP diastolic 63–68; PULSE 64–103; RESP 18–20
[2018-05-15] MEDS: ACCU-CHEK XX SCH (01:28)
[2018-05-15] MEDS: LEVOFLOXACIN 750 MG TABLET PO SCH (05:57)
[2018-05-15] MEDS: PANTOPRAZOLE (EC) 40 MG TAB PO SCH (05:57)
[2018-05-15] MEDS: BUMETANIDE 1 MG INJ IV SCH ×2 (05:57→17:42)
[2018-05-15] MEDS: METOPROLOL 25 MG TAB PO SCH (08:16)
[2018-05-15] MEDS: POTASSIUM CHLORIDE (SR) 8 MEQ CAP PO SCH ×2 (08:16→20:13)
[2018-05-15] MEDS: LOSARTAN 50 MG TAB PO SCH (08:16)
[2018-05-15] MEDS: AMLODIPINE 10 MG TAB PO SCH (08:16)
[2018-05-15] MEDS: GABAPENTIN 100 MG CAP PO SCH (08:17)
[2018-05-15] MEDS: APIXABAN 5 MG TABLET PO SCH ×2 (08:17→20:12)
[2018-05-15] MEDS: INSULIN GLARGINE [LANTus] (100 UNITS/ML) SYG SC SCH ×2 (08:23→20:25)
[2018-05-15] MEDS: INSULIN ASPART [NOVOLOG] 3 ML PEN SC SCH ×8 (08:24→20:23)
[2018-05-15] MEDS ORDERED: INSULIN GLARGINE [LANTus] (100 UNITS/ML) SYG SC SCH (09:00)
[2018-05-15] MEDS: DIGOXIN 0.25 MG TAB PO SCH (12:11)
--- NOTE | 2018-05-15 12:21 | PN ---
Date/Time of Note Date/Time of Note DATE: 05/15/18 TIME: 12:18 Assessment/Plan VTE Prophylaxis Risk score (from Ns)>0 risk: 4 SCD applied (from Ns): No SCD contraindicated: other Pharmacological prophylaxis: apixaban Lines/Catheters IV [facility]from [facility] [place] [facility] Urinary Cath still in place: Yes Reason Cath still needed: urinary retention Assessment/Plan Hospital Course S: Patient used CPAP during the day yesterday and again last night as normally scheduled. Has less shortness of breath symptoms now. Still ordered for IV Bumex. O: VS - see below PHYSICAL EXAMINATION: GENERAL: Sitting in chair, obese. Wearing CPAP mask, answering questions appropriately no acute distress HEENT: Pupils are equal, round, reactive to light. Extraocular muscles are intact. NECK: Supple. No thyromegaly. LUNGS: Mild crackles heard at the bases bilaterally, slightly distant breath sounds bilaterally. CARDIOVASCULAR: Irregularly irregular rhythm; otherwise no rubs or gallops. ABDOMEN: Obese but otherwise soft, nontender, no rebound or guarding. MUSCULOSKELETAL: 1+ pitting edema bilateral lower extremities to the mid calves. NEUROLOGIC: No focal deficits. ASSESSMENT AND PLAN: 67-year-old female with shortness of breath over the last 7 to 8 days with signs of congestive heart failure exacerbation and hypertensive urgency. 1. Shortness of breath -slowly improving, symptoms secondary to patient's congestive heart failure exacerbation. -Continue diuresis with current Bumex medications, follow cardiology recommendations, keep the head of the bed greater than 30 degrees per cardiology recommendations, consider now switching to p.o. twice daily Lasix? - continue low-dose Norvasc and Cozaar. - Monitor daily weights and in's and out's. - Continue PT and OT 2. Possible atrial fibrillation. Heart rate is rate controlled. - Continue current cardiac medications and Eliquis for now. 3. Hypertension. Again, she came in hypertensive urgency. Blood pressure has improved since admission. - Again, continue current Bumex as well as Norvasc and Cozaar. - Monitor blood pressure very carefully. 4. History of diabetes. A1c equals 9.0, sugars improved from yesterday but still slightly -Holding her home metformin and glipizide. - continue her Lantus b.i.d., moderate sliding scale insulin, aspart with meals 5. Obstructive sleep apnea-no present issues. Of note, the patient likely has also obesity hypoventilation syndrome. - Continue CPAP at night and DuoNeb p.r.n. 6. History of morbid obesity. -Continue PT and OT, counseled on weight cessation. 7. Deep venous thrombosis prophylaxis, Eliquis subcutaneously. 8. Gastrointestinal prophylaxis. PPI. Dispo: Likely home in 24 hours if respiratory status improves, sugars are improved. Patient already has CPAP machine at home which she uses nightly. Result Diagram: 05/15/18 0552 05/15/18 0552 Results 24hrs Laboratory Tests Test 05/14/18 17:03 05/14/18 21:30 05/15/18 01:27 05/15/18 05:52 Bedside Glucose 268 H 263 H 143 White Blood Count 9.6 Red Blood Count 4.73 Hemoglobin 13.4 Hematocrit 45.0 Mean Corpuscular 95.1 Volume Mean Corpuscular 28.3 L Hemoglobin Mean Corpuscular 29.8 L Hemoglobin Concent Red Cell 14.6 H Distribution Width Platelet Count 240 Mean Platelet Volume 10.7 H Immature 0.400 Granulocytes % Neutrophils % 73.4 Lymphocytes % 19.4 Monocytes % 5.9 Eosinophils % 0.4 Basophils % 0.5 Nucleated Red Blood 0.0 Cells % Immature 0.040 H Granulocytes # Neutrophils # 7.1 Lymphocytes # 1.9 Monocytes # 0.6 Eosinophils # 0.0 Basophils # 0.1 Nucleated Red Blood 0.0 Cells # Sodium Level 140 Potassium Level 4.2 Chloride Level 93 L Carbon Dioxide Level 38 H Anion Gap 9 Blood Urea Nitrogen 17 Creatinine 0.86 Est Glomerular > 60 Filtrat Rate mL/min Glucose Level 207 Calcium Level 9.6 Test 05/15/18 08:11 05/15/18 12:08 Bedside Glucose 225 H 317 H Exam/Review of Systems Exam Vitals Vital Signs Date Temp Pulse Resp B/P (MAP) Pulse Ox O2 O2 Flow FiO2 Time Delivery Rate 05/15/18 97.5 69 18 124/63 98 Nasal 5.0 11:28 (83) Cannula 05/14/18 40 22:58 Intake and Output 05/14/18 05/14/18 05/15/18 1515:00 23:00 07:00 IntakeIntake Total 900 ml OutputOutput Total 2100 ml BalanceBalance -1200 ml Results Results 24hrs Laboratory Tests Test 05/14/18 17:03 05/14/18 21:30 05/15/18 01:27 05/15/18 05:52 Bedside Glucose 268 H 263 H 143 White Blood Count 9.6 Red Blood Count 4.73 Hemoglobin 13.4 Hematocrit 45.0 Mean Corpuscular 95.1 Volume Mean Corpuscular 28.3 L Hemoglobin Mean Corpuscular 29.8 L Hemoglobin Concent Red Cell 14.6 H Distribution Width Platelet Count 240 Mean Platelet Volume 10.7 H Immature 0.400 Granulocytes % Neutrophils % 73.4 Lymphocytes % 19.4 Monocytes % 5.9 Eosinophils % 0.4 Basophils % 0.5 Nucleated Red Blood 0.0 Cells % Immature 0.040 H Granulocytes # Neutrophils # 7.1 Lymphocytes # 1.9 Monocytes # 0.6 Eosinophils # 0.0 Basophils # 0.1 Nucleated Red Blood 0.0 Cells # Sodium Level 140 Potassium Level 4.2 Chloride Level 93 L Carbon Dioxide Level 38 H Anion Gap 9 Blood Urea Nitrogen 17 Creatinine 0.86 Est Glomerular > 60 Filtrat Rate mL/min Glucose Level 207 Calcium Level 9.6 Test 05/15/18 08:11 05/15/18 12:08 Bedside Glucose 225 H 317 H Medications Medication Current Medications IV Flush (NS 3 ml) 3 ml PER PROTOCOL IV ; Start 05/12/18 at 14:30 Ondansetron HCl (Zofran Inj) 4 mg Q6H PRN IV NAUSEA/VOMITING; Start 05/12/18 at 14:30 Acetaminophen (Tylenol Tab) 650 mg Q6H PRN PO .PAIN 1-3 OR TEMP; Start 05/12/18 at 14:30 Acetaminophen/ Hydrocodone Bitart ([place] (5/325)) 1 tab Q6H PRN PO .MOD PAIN 4- 6; Start 05/12/18 at 14:30 Morphine Sulfate (morphine) 2 mg Q4H PRN IV .SEVERE PAIN 7-10; Start 05/12/18 at 14:30 Docusate Sodium (Colace) 100 mg Q12H PRN PO .CONSTIPATION; Start 05/12/18 at 14:30 Magnesium Hydroxide (Milk Of Mag) 30 ml DAILY PRN PO .CONSTIPATION; Start 05/12/18 at 14:30 Pantoprazole (Protonix Tab) 40 mg DAILY@06 PO Last administered on 05/15/18at 05:57; Admin Dose 40 MG; Start 05/13/18 at 06:00 Lorazepam (Ativan) 0.5 mg Q6H PRN IV ANXIETY; Start 05/12/18 at 14:30 Albuterol/ Ipratropium (Duoneb) 3 ml Q4H RESP THERAPY PRN HHN SHORTNESS OF BREATH; Start 05/12/18 at 14:30 Hydralazine HCl (Apresoline) 10 mg Q6H PRN IV ELEVATED BLOOD PRESSURE; Start 05/12/18 at 14:30 Nitroglycerin (Nitroglycerin (Sl Tab) 0.4 Mg) 1 tab Q5M PRN SL ANGINA; Start 05/12/18 at 14:30 Amlodipine Besylate (Norvasc) 10 mg DAILY PO Last administered on 05/15/18 08:16; Admin Dose 10 MG; Start 05/13/18 at 09:00 Apixaban (Eliquis) 5 mg BID PO Last administered on 05/15/18 08:17; Admin Dose 5 MG; Start 05/12/18 at 21:00 Atorvastatin Calcium (Lipitor) 20 mg QHS PO Last administered on 05/14/18 21:21; Admin Dose 20 MG; Start 05/12/18 at 21:00 Digoxin (Digoxin) 0.25 mg DAILY@1300 PO Last administered on 05/14/18 14:00; Admin Dose 0.25 MG; Start 05/13/18 at 13:00 Gabapentin (Neurontin) 200 mg DAILY PO Last administered on 05/15/18 08:17; Admin Dose 200 MG; Start 05/13/18 at 09:00 Losartan Potassium (Cozaar) 100 mg DAILY PO Last administered on 05/15/18 08:16; Admin Dose 100 MG; Start 05/13/18 at 09:00 Potassium Chloride (Micro-K) 8 meq BID PO Last administered on 05/15/18 08:16; Admin Dose 8 MEQ; Start 05/12/18 at 21:00 Diagnostic Test (Pha) (Accu-Chek) 1 ea 02 XX ; Start 05/14/18 at 02:00 Insulin Aspart (Novolog Insulin Pen) NOVOLOG *MODERATE* ALGORITHM WITH MEALS BEDTIME SC Last administered on 05/15/18 08:24; Admin Dose 6 UNIT; Start 05/13/18 at 17:55 Miscellaneous Information 1 ea NOTE XX ; Start 05/13/18 at 13:00 Glucose (Glutose) 15 gm Q15M PRN PO DECREASED GLUCOSE; Start 05/13/18 at 13:00 Glucose (Glutose) 22.5 gm Q15M PRN PO DECREASED GLUCOSE; Start 05/13/18 at 13:00 Dextrose (D50w Syringe) 25 ml Q15M PRN IV DECREASED GLUCOSE; Start 05/13/18 at 13:00 Dextrose (D50w Syringe) 50 ml Q15M PRN IV DECREASED GLUCOSE; Start 05/13/18 at 13:00 Glucagon (Glucagen) 1 mg Q15M PRN IM DECREASED GLUCOSE; Start 05/13/18 at 13:00 Glucose (Glutose) 15 gm Q15M PRN BUCCAL DECREASED GLUCOSE; Start 05/13/18 at 13:00 Bumetanide (Bumex) 1 mg BID DIURETICS IV Last administered on 05/15/18at 05:57; Admin Dose 1 MG; Start 05/14/18 at 06:00 Metoprolol Tartrate (Lopressor) 25 mg BID PO Last administered on 05/15/18at 08:16; Admin Dose 25 MG; Start 05/13/18 at 21:00 Albuterol (Ventolin Hfa) 2 puff Q6H RESP THERAPY PRN INH WHEEZING AND SOB; Start 05/13/18 at 17:00 Insulin Aspart (Novolog Insulin Pen) 6 unit WITH MEALS BEDTIME SC Last administered on 05/15/18at 08:24; Admin Dose 6 UNIT; Start 05/14/18 at 17:55 Levofloxacin (Levaquin) 750 mg DAILY@06 PO Last administered on 05/15/18at 05:57; Admin Dose 750 MG; Start 05/15/18 at 06:00 Insulin Glargine (Lantus) 10 units BID SC Last administered on 05/15/18at 08:23; Admin Dose 10 UNITS; Start 05/14/18 at 22:00 SALENA CARRILLO May 15, 2018 12:21
--- NOTE | 2018-05-15 17:11 | CONS ---
Consult Date/Type/Reason Admit Date/Time May 12, 2018 at 13:02 Initial Consult Date Type of Consultation: CV Date/Time of Note DATE: 05/15/18 TIME: 17:09 Subjective Cardiology follow-up note Subjective Case discussed with the staff and discussed with patient at the bedside. Telemetry was reviewed patient remained in atrial fibrillation intermittently with a heart rate She has less shortness of breath She denies any palpitation to me denies any chest pain to me Objective: General: Morbidly obese female in no acute distress HEENT: NC/AT. pupils are equal. round. NECK: NO JVD. no stridor. CV: Irregularly irregular. systolic murmur; no gallop or rubs. PULM: no wheezing or rhonchi. GI: SOFT, NT, ND, no rebound or guarding Extremity: + B/L LE edema. no clubbing. neuro: awake and alert, OX3. Psych: calm and pleasant rectal: deferred : normal Objective Vitals Vital Signs Date Temp Pulse Resp B/P (MAP) Pulse Ox O2 O2 Flow FiO2 Time Delivery Rate 05/15/18 4.0 16:53 05/15/18 101 16:00 05/15/18 98.5 18 171/68 98 Nasal 15:25 (102) Cannula 05/14/18 40 22:58 Intake and Output 05/14/18 05/14/18 05/15/18 1515:00 23:00 07:00 IntakeIntake Total 900 ml OutputOutput Total 2200 ml BalanceBalance -1300 ml Results/Medications Result Diagram: 05/15/18 0552 05/15/18 0552 Results 24 hrs Laboratory Tests Test 05/14/18 21:30 05/15/18 01:27 05/15/18 05:52 05/15/18 08:11 Bedside Glucose 263 H 143 225 H White Blood Count 9.6 Red Blood Count 4.73 Hemoglobin 13.4 Hematocrit 45.0 Mean Corpuscular 95.1 Volume Mean Corpuscular 28.3 L Hemoglobin Mean Corpuscular 29.8 L Hemoglobin Concent Red Cell 14.6 H Distribution Width Platelet Count 240 Mean Platelet Volume 10.7 H Immature 0.400 Granulocytes % Neutrophils % 73.4 Lymphocytes % 19.4 Monocytes % 5.9 Eosinophils % 0.4 Basophils % 0.5 Nucleated Red Blood 0.0 Cells % Immature 0.040 H Granulocytes # Neutrophils # 7.1 Lymphocytes # 1.9 Monocytes # 0.6 Eosinophils # 0.0 Basophils # 0.1 Nucleated Red Blood 0.0 Cells # Sodium Level 140 Potassium Level 4.2 Chloride Level 93 L Carbon Dioxide Level 38 H Anion Gap 9 Blood Urea Nitrogen 17 Creatinine 0.86 Est Glomerular > 60 Filtrat Rate mL/min Glucose Level 207 Calcium Level 9.6 Test 05/15/18 12:08 Bedside Glucose 317 H Home Meds Reported Medications Apixaban* (Eliquis*) 5 Mg Tablet, 5 MG PO BID, TAB 05/12/18 Ergocalciferol (Vitamin D2) (VITAMIN D2) 50,000 Unit Capsule, 42309 UNIT PO W EEKLY, CAP 05/12/18 Atorvastatin Calcium* (Atorvastatin Calcium*) 20 Mg Tablet, 20 MG PO QHS, #30 TAB 05/12/18 Ibuprofen* (Ibuprofen*) 800 Mg Tablet, 800 MG PO DAILY PRN for SEVERE PAIN LEVEL 7-10, TAB 05/12/18 Digoxin* (Digitek*) 250 Mcg Tablet, 0.25 MG PO DAILY, TAB 05/12/18 Gabapentin* (Gabapentin*) 100 Mg Capsule, 200 MG PO DAILY, #180 CAP 05/12/18 Albuterol Sulfate* (Ventolin HFA*) 18 Gm Hfa.aer.ad, 2 PUFF INHALATION Q6H PRN for WHEEZING AND SOB, #1 INHALER 05/12/18 Carvedilol* (Carvedilol*) 12.5 Mg Tablet, 12.5 MG PO BID, #60 TAB 05/12/18 Potassium Chloride* (Klor-Con*) 8 Meq Tablet.sa, 8 MEQ PO BID, TAB 01/25/18 Losartan Potassium* (Losartan Potassium*) 100 Mg Tablet, 100 MG PO DAILY, TAB 01/25/18 Furosemide* (Lasix*) 40 Mg Tablet, 40 MG PO BID, TAB 01/25/18 Insulin Glargine,Hum.rec.anlog (Basaglar Kwikpen U-100) 100 Unit/1 Ml Insuln.pen, 10 UNIT SC BID, EA 01/25/18 Amlodipine Besylate* (Amlodipine Besylate*) 10 Mg Tablet, 10 MG PO DAILY, #30 T AB 01/25/18 Metformin Hcl* (Metformin Hcl*) 1,000 Mg Tablet, 1000 MG PO WITH BREAKFAST DINNE, #60 TAB 01/25/18 Glipizide* (Glipizide*) 10 Mg Tablet, 10 MG PO BID, TAB 01/25/18 Discontinued Reported Medications Carvedilol* (Carvedilol*) 6.25 Mg Tablet, 6.25 MG PO BID, #60 TAB 01/25/18 Aspirin (Low Dose Aspirin) 81 Mg Tablet.dr, 81 MG PO DAILY, #30 TAB 01/25/18 Medications Current Medications IV Flush (NS 3 ml) 3 ml PER PROTOCOL IV ; Start 05/12/18 at 14:30 Ondansetron HCl (Zofran Inj) 4 mg Q6H PRN IV NAUSEA/VOMITING; Start 05/12/18 at 14:30 Acetaminophen (Tylenol Tab) 650 mg Q6H PRN PO .PAIN 1-3 OR TEMP; Start 05/12/18 at 14:30 Acetaminophen/ Hydrocodone Bitart ([place] (5/325)) 1 tab Q6H PRN PO .MOD PAIN 4- 6; Start 05/12/18 at 14:30 Morphine Sulfate (morphine) 2 mg Q4H PRN IV .SEVERE PAIN 7-10; Start 05/12/18 at 14:30 Docusate Sodium (Colace) 100 mg Q12H PRN PO .CONSTIPATION; Start 05/12/18 at 14:30 Magnesium Hydroxide (Milk Of Mag) 30 ml DAILY PRN PO .CONSTIPATION; Start 05/12/18 at 14:30 Pantoprazole (Protonix Tab) 40 mg DAILY@06 PO Last administered on 05/15/18at 05:57; Admin Dose 40 MG; Start 05/13/18 at 06:00 Lorazepam (Ativan) 0.5 mg Q6H PRN IV ANXIETY; Start 05/12/18 at 14:30 Albuterol/ Ipratropium (Duoneb) 3 ml Q4H RESP THERAPY PRN HHN SHORTNESS OF BREATH; Start 05/12/18 at 14:30 Hydralazine HCl (Apresoline) 10 mg Q6H PRN IV ELEVATED BLOOD PRESSURE; Start 05/12/18 at 14:30 Nitroglycerin (Nitroglycerin (Sl Tab) 0.4 Mg) 1 tab Q5M PRN SL ANGINA; Start 05/12/18 at 14:30 Amlodipine Besylate (Norvasc) 10 mg DAILY PO Last administered on 05/15/18 08:16; Admin Dose 10 MG; Start 05/13/18 at 09:00 Apixaban (Eliquis) 5 mg BID PO Last administered on 05/15/18 08:17; Admin Dose 5 MG; Start 05/12/18 at 21:00 Atorvastatin Calcium (Lipitor) 20 mg QHS PO Last administered on 05/14/18at 21:21; Admin Dose 20 MG; Start 05/12/18 at 21:00 Digoxin (Digoxin) 0.25 mg DAILY@1300 PO Last administered on 05/15/18at 12:11; Admin Dose 0.25 MG; Start 05/13/18 at 13:00 Gabapentin (Neurontin) 200 mg DAILY PO Last administered on 05/15/18 08:17; Admin Dose 200 MG; Start 05/13/18 at 09:00 Losartan Potassium (Cozaar) 100 mg DAILY PO Last administered on 05/15/18at 08:16; Admin Dose 100 MG; Start 05/13/18 at 09:00 Potassium Chloride (Micro-K) 8 meq BID PO Last administered on 05/15/18 08:16; Admin Dose 8 MEQ; Start 05/12/18 at 21:00 Diagnostic Test (Pha) (Accu-Chek) 1 ea 02 XX ; Start 05/14/18 at 02:00 Insulin Aspart (Novolog Insulin Pen) NOVOLOG *MODERATE* ALGORITHM WITH MEALS BEDTIME SC Last administered on 05/15/18at 12:18; Admin Dose 10 UNIT; Start 05/13/18 at 17:55 Miscellaneous Information 1 ea NOTE XX ; Start 05/13/18 at 13:00 Glucose (Glutose) 15 gm Q15M PRN PO DECREASED GLUCOSE; Start 05/13/18 at 13:00 Glucose (Glutose) 22.5 gm Q15M PRN PO DECREASED GLUCOSE; Start 05/13/18 at 13:00 Dextrose (D50w Syringe) 25 ml Q15M PRN IV DECREASED GLUCOSE; Start 05/13/18 at 13:00 Dextrose (D50w Syringe) 50 ml Q15M PRN IV DECREASED GLUCOSE; Start 05/13/18 at 13:00 Glucagon (Glucagen) 1 mg Q15M PRN IM DECREASED GLUCOSE; Start 05/13/18 at 13:00 Glucose (Glutose) 15 gm Q15M PRN BUCCAL DECREASED GLUCOSE; Start 05/13/18 at 13:00 Bumetanide (Bumex) 1 mg BID DIURETICS IV Last administered on 05/15/18at 05:57; Admin Dose 1 MG; Start 05/14/18 at 06:00 Albuterol (Ventolin Hfa) 2 puff Q6H RESP THERAPY PRN INH WHEEZING AND SOB; Start 05/13/18 at 17:00 Levofloxacin (Levaquin) 750 mg DAILY@06 PO Last administered on 05/15/18at 05 :57; Admin Dose 750 MG; Start 05/15/18 at 06:00 Insulin Aspart (Novolog Insulin Pen) 9 unit WITH MEALS BEDTIME SC ; Start 05/15/18 at 17:55 Insulin Glargine (Lantus) 12 units BID SC ; Start 05/15/18 at 21:00 Metoprolol Succinate (Toprol Xl) 25 mg BID PO ; Start 05/15/18 at 21:00; Status UNV Assessment/Plan Hospital Course (Demo Recall) Atrial fibrillation Congestive heart failure Probably obesity hypoventilation syndrome Morbid obesity Hypertension Recommendations I would add Aldactone to her regimen Give a dose of Diamox Change metoprolol to Toprol-XL Continue the rest of her cardiac care Nightly CPAP recommended Thank you for his referral will continue to follow with you until Dr. Milan returns on Thursday OLESYA HUYNH MD [facility] OLESYA HUYNH MD May 15, 2018 17:11
[2018-05-15] MEDS: SPIRONOLACTONE 25 MG TAB PO SCH (17:42)
[2018-05-15] MEDS: ATORVASTATIN 20 MG TAB PO SCH (20:13)
[2018-05-15] MEDS: METOPROLOL (XL) 25 MG TAB PO SCH (20:14)
[2018-05-16] VITALS (9 sets, daily range): BP systolic 119–137; BP diastolic 58–67; PULSE 65–95; RESP 19–20
[2018-05-16] MEDS: ACCU-CHEK XX SCH (02:00)
[2018-05-16] MEDS: PANTOPRAZOLE (EC) 40 MG TAB PO SCH (05:51)
[2018-05-16] MEDS: LEVOFLOXACIN 750 MG TABLET PO SCH (05:51)
[2018-05-16] MEDS: BUMETANIDE 1 MG INJ IV SCH ×2 (05:52→17:23)
[2018-05-16] MEDS: AMLODIPINE 10 MG TAB PO SCH (08:29)
[2018-05-16] MEDS: METOPROLOL (XL) 25 MG TAB PO SCH (08:29)
[2018-05-16] MEDS: SPIRONOLACTONE 25 MG TAB PO SCH (08:30)
[2018-05-16] MEDS: GABAPENTIN 100 MG CAP PO SCH (08:30)
[2018-05-16] MEDS: APIXABAN 5 MG TABLET PO SCH (08:30)
[2018-05-16] MEDS: POTASSIUM CHLORIDE (SR) 8 MEQ CAP PO SCH (08:30)
[2018-05-16] MEDS: LOSARTAN 50 MG TAB PO SCH (08:30)
[2018-05-16] MEDS: INSULIN ASPART [NOVOLOG] 3 ML PEN SC SCH ×6 (08:37→17:26)
[2018-05-16] MEDS: INSULIN GLARGINE [LANTus] (100 UNITS/ML) SYG SC SCH (08:38)
[2018-05-16] MEDS: DIGOXIN 0.25 MG TAB PO SCH (12:15)
--- NOTE | 2018-05-16 13:27 | PDOCDIS ---
Discharge Instructions CONDITION [id number] Patient Condition: [id number] Stable HOME CARE INSTRUCTIONS: [id number] Diet Instructions: [id number] Low Fat /Cholesterol ACTIVITY: [id number] Activity Restrictions: [id number] Slowly Increase Activity Rest between Activity Avoid heavy lifting FOLLOW UP/APPOINTMENTS Follow-up Plan Please take your medication as prescribed, see your doctor in clinic in the next 1 week. SALENA CARRILLO May 16, 2018 13:27
[2018-05-16] MEDS ORDERED: MAGNESIUM SULFATE 1 GM/D5W 100 ML IVPB ONE (13:30)
--- NOTE | 2018-05-16 13:30 | DS ---
Date/Time of Note Date/Time of Note DATE: 05/16/18 TIME: 13:28 Discharge Summary Admission/Discharge Info Admit Date/Time May 12, 2018 at 13:02 Discharge Date/Time Discharge Diagnosis 1. Shortness of breath -slowly improving, symptoms secondary to patient's co ngestive heart failure exacerbation. 2. Possible atrial fibrillation. Heart rate is rate controlled, Eliquis for now. 3. Hypertension. Again, she came in hypertensive urgency. Blood pressure has improved since admission. 4. History of diabetes. A1c equals 9.0, 5. Obstructive sleep apnea-no present issues. 6. Obesity hypoventilation syndrome 6. History of morbid obesity - counseled on weight cessation. Patient Condition: Stable Hx of Present Illness 67-year-old female with past medical history of CHF, uses CPAP at night, type 2 diabetes, hypertension who presents with shortness of breath. The symptoms have been going on for the last 7 to 8 days. She went to her primary care doctor 3 days ago, stating she could not breathe. She still has, however, been using her CPAP at night. She denied any upper or lower GI bleeding. No nausea, vomiting, no fevers or chills, no diarrhea or constipation. Because her symptoms have persisted, she and her family decided to bring her into the ER today. The patient has had multiple admissions for CHF exacerbation and last time she was here at the hospital at [facility] was 01/25/2018 to 01/27/2018 for similar episode. When she arrived today, she was found to have a white blood cell count of 12,000. No fevers. Her chest x-ray did show bilateral lower lung atelectasis and infiltrates with small bilateral pleural effusions. When she arrived, she has also elevated blood pressure 213 systolic over 123 diastolic and received Lasix in the ER as well as nitroglycerin. Troponin has been negative x1. When the patient arrived to the ER, she did require BiPAP for a short time, but now has been weaned down to nasal cannula oxygen. Hospital Course Patient was admitted, seen by physical therapy, occupational therapy. Also seen by cardiology team during this hospital stay. She was placed on IV Bumex and continued on CPAP at night. Over the course of her hospital stay her breathing symptoms slowly improved, her edema symptoms slowly resolved. She was able to ambulate, tolerated p.o. diet. If we get clearance from the cardiology team today, we will stop her IV Bumex and continue her back on her p.o. Lasix twice a day and discharge her later today and in improved condition. She has been reminded to continue to take CPAP at night. See below for full list of discharge medications. Home Meds Reported Medications Apixaban* (Eliquis*) 5 Mg Tablet, 5 MG PO BID, TAB 05/12/18 Ergocalciferol (Vitamin D2) (VITAMIN D2) 50,000 Unit Capsule, 98682 UNIT PO WEEKLY, CAP 05/12/18 Atorvastatin Calcium* (Atorvastatin Calcium*) 20 Mg Tablet, 20 MG PO QHS, #30 TAB 05/12/18 Ibuprofen* (Ibuprofen*) 800 Mg Tablet, 800 MG PO DAILY PRN for SEVERE PAIN LEVEL 7-10, TAB 05/12/18 Digoxin* (Digitek*) 250 Mcg Tablet, 0.25 MG PO DAILY, TAB 05/12/18 Gabapentin* (Gabapentin*) 100 Mg Capsule, 200 MG PO DAILY, #180 CAP 05/12/18 Albuterol Sulfate* (Ventolin HFA*) 18 Gm Hfa.aer.ad, 2 PUFF INHALATION Q6H PRN for WHEEZING AND SOB, #1 INHALER 05/12/18 Carvedilol* (Carvedilol*) 12.5 Mg Tablet, 12.5 MG PO BID, #60 TAB 05/12/18 Potassium Chloride* (Klor-Con*) 8 Meq Tablet.sa, 8 MEQ PO BID, TAB 01/25/18 Losartan Potassium* (Losartan Potassium*) 100 Mg Tablet, 100 MG PO DAILY, TAB 01/25/18 Furosemide* (Lasix*) 40 Mg Tablet, 40 MG PO BID, TAB 01/25/18 Insulin Glargine,Hum.rec.anlog (Basaglar Kwikpen U-100) 100 Unit/1 Ml Insuln.pen, 10 UNIT SC BID, EA 01/25/18 Amlodipine Besylate* (Amlodipine Besylate*) 10 Mg Tablet, 10 MG PO DAILY, #30 TAB 01/25/18 Metformin Hcl* (Metformin Hcl*) 1,000 Mg Tablet, 1000 MG PO WITH BREAKFAST DINNE, #60 TAB 01/25/18 Glipizide* (Glipizide*) 10 Mg Tablet, 10 MG PO BID, TAB 01/25/18 Discontinued Reported Medications Carvedilol* (Carvedilol*) 6.25 Mg Tablet, 6.25 MG PO BID, #60 TAB 01/25/18 Aspirin (Low Dose Aspirin) 81 Mg Tablet.dr, 81 MG PO DAILY, #30 TAB 01/25/18 Follow-up Plan Please take your medication as prescribed, see your doctor in clinic in the next 1 week. Primary Care Provider Alexis Willoughby Time spent on discharge: > 30 minutes Pending Labs Laboratory Tests Test 05/15/18 17:41 05/15/18 20:10 05/16/18 02:52 05/16/18 05:31 Bedside 195 199 189 Glucose mg/dL (70-220) mg/dL (70-220) mg/dL (70-220) White Blood 10.1 Count 10^3/ul (4.8-1 0.8) Red Blood 4.69 Count 10^6/ul (4.20- 5.40) Hemoglobin 13.2 g/dl (12.0-16. 0) Hematocrit 44.3 % (37.0-47.0) Mean 94.5 Corpuscular fl (82.0-101.0 Volume ) Mean 28.1 Corpuscular pg (29.0-33.0) Hemoglobin Mean 29.8 Corpuscular g/dl (32.0-37. Hemoglobin Conc 0) ent Red Cell 14.2 Distribution % (11.5-14.5) Width Platelet Count 241 10^3/UL (140-4 15) Mean Platelet 10.6 Volume fl (7.4-10.4) Immature 0.400 Granulocytes % % (0.001-0.429 ) Neutrophils % 76.4 % (39.0-77.0) Lymphocytes % 17.1 % (15.0-51.0) Monocytes % 5.3 % (0.0-11.0) Eosinophils % 0.5 % (0.0-7.0) Basophils % 0.3 % (0.0-2.0) Nucleated Red 0.0 Blood Cells % /100WBC (0.0-0 .0) Immature 0.040 Granulocytes # 10^3/ul (0.0-0 .031) Neutrophils # 7.7 10^3/ul (1.6-7 .5) Lymphocytes # 1.7 10^3/ul (0.8-2 .9) Monocytes # 0.5 10^3/ul (0.3-0 .9) Eosinophils # 0.1 10^3/ul (0.0-0 .5) Basophils # 0.0 10^3/ul (0.0-0 .1) Nucleated Red 0.0 Blood Cells # 10^3/ul (0.0-0 .0) Sodium Level 137 mmol/L (135-14 4) Potassium 4.0 Level mmol/L (3.5-5. 1) Chloride Level 92 mmol/L (97-110 ) Carbon Dioxide 38 Level mmol/L (21-31) Anion Gap 7 (5-13) Blood Urea 19 Nitrogen mg/dl (7-20) Creatinine 0.86 mg/dl (0.44-1. 00) Est Glomerular > 60 Filtrat mL/min (>60) Rate mL/min Glucose Level 288 mg/dl (70-220) Calcium Level 9.7 mg/dl (8.4-10. 2) Magnesium 1.6 Level mg/dl (1.7-2.5 ) B-Type 701 Natriuretic PG/ML (0-125) Peptide Test 05/16/18 08:01 05/16/18 12:11 Bedside 272 242 Glucose mg/dL (70-220) mg/dL (70-220) SALENA CARRILLO May 16, 2018 13:30
--- NOTE | 2018-05-16 15:34 | CONS ---
Consult Date/Type/Reason Admit Date/Time May 12, 2018 at 13:02 Initial Consult Date Type of Consultation: CV Date/Time of Note DATE: 05/16/18 TIME: 15:29 Subjective Cardiology follow-up note Subjective Case discussed with the staff and discussed with patient at the bedside. Telemetry was reviewed patient remained in atrial fibrillation intermittently with a heart rate She has less shortness of breath She denies any palpitation to me denies any chest pain to me pt wants to go home Objective: General: Morbidly obese female in no acute distress HEENT: NC/AT. pupils are equal. round. NECK: NO JVD. no stridor. CV: Irregularly irregular. systolic murmur; no gallop or rubs. PULM: no wheezing or rhonchi. GI: SOFT, NT, ND, no rebound or guarding Extremity: + B/L LE edema. no clubbing. neuro: awake and alert, OX3. Psych: calm and pleasant rectal: deferred : normal Objective Vitals Vital Signs Date Temp Pulse Resp B/P (MAP) Pulse Ox O2 O2 Flow FiO2 Time Delivery Rate 05/16/18 98.6 65 20 128/60 97 15:16 (82) 05/16/18 Nasal 3.0 07:43 Cannula 05/16/18 33 04:22 Intake and Output 05/15/18 05/15/18 05/16/18 1515:00 23:00 07:00 IntakeIntake Total 1320 ml 220 ml OutputOutput Total 100 ml 1600 ml 1500 ml BalanceBalance -100 ml -280 ml -1280 ml Results/Medications Result Diagram: 05/16/18 0531 05/16/18 0531 Results 24 hrs Laboratory Tests Test 05/15/18 17:41 05/15/18 20:10 05/16/18 02:52 05/16/18 05:31 Bedside Glucose 195 199 189 White Blood Count 10.1 Red Blood Count 4.69 Hemoglobin 13.2 Hematocrit 44.3 Mean Corpuscular 94.5 Volume Mean Corpuscular 28.1 L Hemoglobin Mean Corpuscular 29.8 L Hemoglobin Concent Red Cell 14.2 Distribution Width Platelet Count 241 Mean Platelet Volume 10.6 H Immature 0.400 Granulocytes % Neutrophils % 76.4 Lymphocytes % 17.1 Monocytes % 5.3 Eosinophils % 0.5 Basophils % 0.3 Nucleated Red Blood 0.0 Cells % Immature 0.040 H Granulocytes # Neutrophils # 7.7 H Lymphocytes # 1.7 Monocytes # 0.5 Eosinophils # 0.1 Basophils # 0.0 Nucleated Red Blood 0.0 Cells # Sodium Level 137 Potassium Level 4.0 Chloride Level 92 L Carbon Dioxide Level 38 H Anion Gap 7 Blood Urea Nitrogen 19 Creatinine 0.86 Est Glomerular > 60 Filtrat Rate mL/min Glucose Level 288 H Calcium Level 9.7 Magnesium Level 1.6 L B-Type Natriuretic 701 H Peptide Test 05/16/18 08:01 05/16/18 12:11 Bedside Glucose 272 H 242 H Home Meds Reported Medications Apixaban* (Eliquis*) 5 Mg Tablet, 5 MG PO BID, TAB 05/12/18 Ergocalciferol (Vitamin D2) (VITAMIN D2) 50,000 Unit Capsule, 49764 UNIT PO WEEKLY, CAP 05/12/18 Atorvastatin Calcium* (Atorvastatin Calcium*) 20 Mg Tablet, 20 MG PO QHS, #30 TAB 05/12/18 Ibuprofen* (Ibuprofen*) 800 Mg Tablet, 800 MG PO DAILY PRN for SEVERE PAIN LEVEL 7-10, TAB 05/12/18 Digoxin* (Digitek*) 250 Mcg Tablet, 0.25 MG PO DAILY, TAB 05/12/18 Gabapentin* (Gabapentin*) 100 Mg Capsule, 200 MG PO DAILY, #180 CAP 05/12/18 Albuterol Sulfate* (Ventolin HFA*) 18 Gm Hfa.aer.ad, 2 PUFF INHALATION Q6H PRN for WHEEZING AND SOB, #1 INHALER 05/12/18 Carvedilol* (Carvedilol*) 12.5 Mg Tablet, 12.5 MG PO BID, #60 TAB 05/12/18 Potassium Chloride* (Klor-Con*) 8 Meq Tablet.sa, 8 MEQ PO BID, TAB 01/25/18 Losartan Potassium* (Losartan Potassium*) 100 Mg Tablet, 100 MG PO DAILY, TAB 01/25/18 Furosemide* (Lasix*) 40 Mg Tablet, 40 MG PO BID, TAB 01/25/18 Insulin Glargine,Hum.rec.anlog (Basaglar Kwikpen U-100) 100 Unit/1 Ml Insuln.pen, 10 UNIT SC BID, EA 01/25/18 Amlodipine Besylate* (Amlodipine Besylate*) 10 Mg Tablet, 10 MG PO DAILY, #30 TAB 01/25/18 Metformin Hcl* (Metformin Hcl*) 1,000 Mg Tablet, 1000 MG PO WITH BREAKFAST DINNE, #60 TAB 01/25/18 Glipizide* (Glipizide*) 10 Mg Tablet, 10 MG PO BID, TAB 01/25/18 Discontinued Reported Medications Carvedilol* (Carvedilol*) 6.25 Mg Tablet, 6.25 MG PO BID, #60 TAB 01/25/18 Aspirin (Low Dose Aspirin) 81 Mg Tablet.dr, 81 MG PO DAILY, #30 TAB 01/25/18 Medications Current Medications IV Flush (NS 3 ml) 3 ml PER PROTOCOL IV ; Start 05/12/18 at 14:30 Ondansetron HCl (Zofran Inj) 4 mg Q6H PRN IV NAUSEA/VOMITING; Start 05/12/18 at 14:30 Acetaminophen (Tylenol Tab) 650 mg Q6H PRN PO .PAIN 1-3 OR TEMP; Start 05/12/18 at 14:30 Acetaminophen/ Hydrocodone Bitart ([place] (5/325)) 1 tab Q6H PRN PO .MOD PAIN 4- 6; Start 05/12/18 at 14:30 Morphine Sulfate (morphine) 2 mg Q4H PRN IV .SEVERE PAIN 7-10; Start 05/12/18 at 14:30 Docusate Sodium (Colace) 100 mg Q12H PRN PO .CONSTIPATION; Start 05/12/18 at 14:30 Magnesium Hydroxide (Milk Of Mag) 30 ml DAILY PRN PO .CONSTIPATION; Start 05/12/18 at 14:30 Pantoprazole (Protonix Tab) 40 mg DAILY@06 PO Last administered on 05/16/18at 05:51; Admin Dose 40 MG; Start 05/13/18 at 06:00 Lorazepam (Ativan) 0.5 mg Q6H PRN IV ANXIETY; Start 05/12/18 at 14:30 Albuterol/ Ipratropium (Duoneb) 3 ml Q4H RESP THERAPY PRN HHN SHORTNESS OF BREATH; Start 05/12/18 at 14:30 Hydralazine HCl (Apresoline) 10 mg Q6H PRN IV ELEVATED BLOOD PRESSURE; Start 05/12/18 at 14:30 Nitroglycerin (Nitroglycerin (Sl Tab) 0.4 Mg) 1 tab Q5M PRN SL ANGINA; Start 05/12/18 at 14:30 Amlodipine Besylate (Norvasc) 10 mg DAILY PO Last administered on 05/16/18 08:29; Admin Dose 10 MG; Start 05/13/18 at 09:00 Apixaban (Eliquis) 5 mg BID PO Last administered on 05/16/18 08:30; Admin Dose 5 MG; Start 05/12/18 at 21:00 Atorvastatin Calcium (Lipitor) 20 mg QHS PO Last administered on 05/15/18 20:13; Admin Dose 20 MG; Start 05/12/18 at 21:00 Digoxin (Digoxin) 0.25 mg DAILY@1300 PO Last administered on 05/16/18 12:15; Admin Dose 0.25 MG; Start 05/13/18 at 13:00 Gabapentin (Neurontin) 200 mg DAILY PO Last administered on 05/16/18 08:30; Admin Dose 200 MG; Start 05/13/18 at 09:00 Losartan Potassium (Cozaar) 100 mg DAILY PO Last administered on 05/16/18 08:30; Admin Dose 100 MG; Start 05/13/18 at 09:00 Potassium Chloride (Micro-K) 8 meq BID PO Last administered on 05/16/18 08:30; Admin Dose 8 MEQ; Start 05/12/18 at 21:00 Diagnostic Test (Pha) (Accu-Chek) 1 ea 02 XX Last administered on 05/16/18at 02:00; Admin Dose 1 EA; Start 05/14/18 at 02:00 Insulin Aspart (Novolog Insulin Pen) NOVOLOG *MODERATE* ALGORITHM WITH MEALS BEDTIME SC Last administered on 05/16/18at 12:14; Admin Dose 6 UNIT; Start 05/13/18 at 17:55 Miscellaneous Information 1 ea NOTE XX ; Start 05/13/18 at 13:00 Glucose (Glutose) 15 gm Q15M PRN PO DECREASED GLUCOSE; Start 05/13/18 at 13:00 Glucose (Glutose) 22.5 gm Q15M PRN PO DECREASED GLUCOSE; Start 05/13/18 at 13:00 Dextrose (D50w Syringe) 25 ml Q15M PRN IV DECREASED GLUCOSE; Start 05/13/18 at 13:00 Dextrose (D50w Syringe) 50 ml Q15M PRN IV DECREASED GLUCOSE; Start 05/13/18 at 13:00 Glucagon (Glucagen) 1 mg Q15M PRN IM DECREASED GLUCOSE; Start 05/13/18 at 13:00 Glucose (Glutose) 15 gm Q15M PRN BUCCAL DECREASED GLUCOSE; Start 05/13/18 at 13:00 Bumetanide (Bumex) 1 mg BID DIURETICS IV Last administered on 05/16/18at 05:52; Admin Dose 1 MG; Start 05/14/18 at 06:00 Albuterol (Ventolin Hfa) 2 puff Q6H RESP THERAPY PRN INH WHEEZING AND SOB; Start 05/13/18 at 17:00 Levofloxacin (Levaquin) 750 mg DAILY@06 PO Last administered on 05/16/18at 05:51; Admin Dose 750 MG; Start 05/15/18 at 06:00 Insulin Aspart (Novolog Insulin Pen) 9 unit WITH MEALS BEDTIME SC Last administered on 05/16/18at 12:15; Admin Dose 9 UNIT; Start 05/15/18 at 17:55 Insulin Glargine (Lantus) 12 units BID SC Last administered on 05/16/18at 08:38; Admin Dose 12 UNITS; Start 05/15/18 at 21:00 Metoprolol Succinate (Toprol Xl) 25 mg BID PO Last administered on 05/16/18at 08:29; Admin Dose 25 MG; Start 05/15/18 at 21:00 Spironolactone (Aldactone) 25 mg DAILY PO Last administered on 05/16/18at 08:30; Admin Dose 25 MG; Start 05/15/18 at 17:30 Assessment/Plan Hospital Course (Demo Recall) Atrial fibrillation Congestive heart failure Probably obesity hypoventilation syndrome Morbid obesity Hypertension Recommendations cont alddactone cont Toprol-XL Continue the rest of her cardiac care Nightly CPAP recommended Okay to discharge from the cardiac this time on current cardiac medication. Patient to follow-up with her regular molecular pathologist Dr. Jacobson this week Thank you for his referral will continue to follow with you until Dr. Milan returns on Thursday OLESYA HUYNH MD [facility] OLESYA HUYNH MD May 16, 2018 15:34
--- NOTE | 2018-05-16 17:32 | RADRPT ---
Echocardiogram Report Patient Name: MONIQUE LEPEPatient ID: [id number] : 1950 (67y 8m)Study Date: 05/16/2018 11:10:41 AM Gender: FAccession #: [id number] Tech: [facility] [place] Location: Ref.Physician: NGHIA ALMAZAN Height(Cm): 155 BSA: 2.48Weight(Kg): 142.9 Quality: Technically Difficult StudyAccount #: Procedures: Echocardiographic Report: Transthoracic echocardiogram with complete 2D, M-Mode, and doppler examination. Indications: Evaluate Left Ventricular function. Measurements: 2D/M Mode Doppler Measurement Value Normal Range Measurement Value Normal Range LA Volume 83.1 [ 22.0 - 52.0 ] ml AV Peak Avtar 1.7 [ 100.0 - 170.0 ] cm/sec LA Volume Index 36 [ 16 - 34 ] ml/m2 AV Peak PG 11.0 [ 2.0 - 9.0 ] mmHg LVIDd 2D 5.2 [ 3.8 - 5.2 ] cm LVOT Peak Avtar 1.1 [ 70.0 - 110.0 ] cm/sec LVIDs 2D 3.2 [ 2.2 - 3.5 ] cm LVOT Peak PG 5.0 [ 2.0 - 6.0 ] mmHg LVPWd 2D 1.2 [ 0.6 - 0.9 ] cm MV E Peak Avtar 0.8 [ 60.0 - 130.0 ] cm/sec IVSd 2D 1.3 [ 0.6 - 0.9 ] cm MV PHT 125.0 [ 20.0 - 100.0 ] msec AoR Diam 2D 3.3 [ 2.3 - 3.1 ] cm MV Decel Time 425 [ 104 - 258 ] msec LA Dimen 2D 4.1 [ 2.7 - 3.8 ] cm MV Decel Davison 2 Lat E` Avtar 0.1 [ 10.0 - 15.0 ] cm/sec Lateral E/E` 5.9 [ 1.0 - 2.0 ] ratio Med E` Avtar 0.1 cm/sec MVA PHT 1.8 [ 2.0 - 4.0 ] cm2 TR Peak Avtar 3.1 [ 100.0 - 280.0 ] cm/sec TR Peak PG 39.0 mmHg PV Peak Avtar 1.3 [ 40.0 - 80.0 ] cm/sec PV Peak PG 6.0 mmHg RVSP 54.0 [ 10.0 - 36.0 ] mmHg RA Pressure 15.0 mmHg Findings: Left Ventricle: Normal left ventricular systolic function. Normal left ventricular cavity size. Mild concentric left ventricular hypertrophy. Ejection fraction is visually estimated at 65 %. Right Ventricle: Normal right ventricular size. Normal right ventricular systolic function. Left Atrium: There is mild enlargement of left atrium. Right Atrium: The right atrium is normal in size. Mitral Valve: Mitral valve leaflets appear mildly thickened. Mild mitral annular calcification. Trace mitral regurgitation. Aortic Valve: Normal appearance of the aortic valve. No significant aortic stenosis or insufficiency. Tricuspid Valve: Normal appearance of the tricuspid valve. Estimated peak PA systolic pressure 54 mmHg. There is mild tricuspid regurgitation. Pulmonic Valve: Normal pulmonic valve appearance. Pericardium: Normal pericardium with no significant pericardial effusion. Aorta: Normal aortic root. IVC: Normal size and normal respiratory collapse consistent with normal right atrial pressure. Conclusions: Normal left ventricular systolic function. Normal left ventricular cavity size. Mild concentric left ventricular hypertrophy. Ejection fraction is visually estimated at 65 %. Mitral valve leaflets appear mildly thickened. Mild mitral annular calcification. Trace mitral regurgitation. Normal appearance of the aortic valve. No significant aortic stenosis or insufficiency. Normal appearance of the tricuspid valve. Estimated peak PA systolic pressure 54 mmHg. There is mild tricuspid regurgitation. Electronically Signed By: Nghia Almazan 2018-05-16 17:30:48 PST
== END 2018-05-16 18:31 | disposition home or self-care (01) | DRG 291 ==
LOC: E/R 11:31 → TEL 13:02
PROVIDERS: ADMIT Hospitalist; ATTEND Hospitalist
PROC: 5A09357 Assistance with Respiratory Ventilation, Less than 24 Consecutive Hours, Continuous Positive Airway Pressure (ICD-10-PCS; principal; 2018-05-12)
DX: I11.0 Hypertensive heart disease with heart failure (principal); J96.01 Acute respiratory failure with hypoxia; Z68.43 Body mass index [BMI] 50.0-59.9, adult; E66.2 Morbid (severe) obesity with alveolar hypoventilation; Z99.81 Dependence on supplemental oxygen; I48.91 Unspecified atrial fibrillation; I50.33 Acute on chronic diastolic (congestive) heart failure; E11.9 Type 2 diabetes mellitus without complications; I16.0 Hypertensive urgency; Z79.82 Long term (current) use of aspirin; Z79.4 Long term (current) use of insulin; Z79.02 Long term (current) use of antithrombotics/antiplatelets
CPT/HCPCS: 36415; 71045; 80048; 80061; 82550; 82553; 82962; 83036; 83735; 83880; 84100; 84439; 84443; 84484; 85025; 85610; 85730; 92610; 93005; 93306; 94660; 96374; 97116; 97161; 97167; 97530; J1815; J1940; J1956; J3475

== ENCOUNTER 2018-07-16 10:08 | Inpatient (IN) | payer MEDICARE, OTHER ==
[~2018-07-16] VITALS: Ht 154.9 cm; Wt 144.6 kg
[~2018-07-16 10:08] MED LIST changes: +ALBU18HF INHALATION; +APIX5TAB PO; -ASPI81TA52 PO; +ATOR20TA38 PO; +CARV12.579 PO; -CARV6.2579 PO; +DIGO250T PO; +ERGO500013 PO; +GABA100C14 PO; +IBUP-1544 PO
[2018-07-16] MEDS ORDERED: IPRATROPIUM (NEB) 0.5 MG/2.5 ML AMP INH STA (10:26)
[2018-07-16] MEDS ORDERED: ALBUTEROL 0.5% (NEB) 2.5 MG/0.5 ML AMP INH STA (10:26)
[2018-07-16] MEDS ORDERED: ACETAMINOPHEN 325 MG TAB PO PRN (12:30)
[2018-07-16] MEDS ORDERED: ONDANSETRON 4 MG INJ IV PRN (12:30)
--- NOTE | 2018-07-16 13:24 | ERD ---
ER Documentation Chief Complaint Chief Complaint SOB X 1 WEEK GETTING INCREASINGLY WORSE HPI This is a 67-year-old female with a known history of atrial fibrillation and congestive heart failure. Patient is on home oxygen 2 L continuously. The patient has a history of type 2 diabetes mellitus. She indicates that over the past 1 week her symptoms have been worsening with respect to shortness of breath. She states she is unable to ambulate more than several steps before becoming short of breath. She has had to increase her home oxygen to 3 L nasal cannula. She said no fevers or shaking or chills. She denies any recent travel or prolonged immobilization. She has no swelling of her lower extremities. She denies any recent hospitalizations. ROS All systems reviewed and are negative except as per history of present illness. Medications Home Meds Reported Medications Apixaban* (Eliquis*) 5 Mg Tablet, 5 MG PO BID, TAB 05/12/18 Ergocalciferol (Vitamin D2) (VITAMIN D2) 50,000 Unit Capsule, 30680 UNIT PO WEEKLY, CAP 05/12/18 Atorvastatin Calcium* (Atorvastatin Calcium*) 20 Mg Tablet, 20 MG PO QHS, #30 TAB 05/12/18 Ibuprofen* (Ibuprofen*) 800 Mg Tablet, 800 MG PO DAILY PRN for SEVERE PAIN LEVEL 7-10, TAB 05/12/18 Digoxin* (Digitek*) 250 Mcg Tablet, 0.25 MG PO DAILY, TAB 05/12/18 Gabapentin* (Gabapentin*) 100 Mg Capsule, 200 MG PO DAILY, #180 CAP 05/12/18 Albuterol Sulfate* (Ventolin HFA*) 18 Gm Hfa.aer.ad, 2 PUFF INHALATION Q6H PRN for WHEEZING AND SOB, #1 INHALER 05/12/18 Carvedilol* (Carvedilol*) 12.5 Mg Tablet, 12.5 MG PO BID, #60 TAB 05/12/18 Potassium Chloride* (Klor-Con*) 8 Meq Tablet.sa, 8 MEQ PO BID, TAB 01/25/18 Losartan Potassium* (Losartan Potassium*) 100 Mg Tablet, 100 MG PO DAILY, TAB 01/25/18 Furosemide* (Lasix*) 40 Mg Tablet, 40 MG PO BID, TAB 01/25/18 Insulin Glargine,Hum.rec.anlog (Basaglar Kwikpen U-100) 100 Unit/1 Ml Insuln.pen, 10 UNIT SC BID, EA 01/25/18 Amlodipine Besylate* (Amlodipine Besylate*) 10 Mg Tablet, 10 MG PO DAILY, #30 TAB 01/25/18 Metformin Hcl* (Metformin Hcl*) 1,000 Mg Tablet, 1000 MG PO WITH BREAKFAST DINNE, #60 TAB 01/25/18 Glipizide* (Glipizide*) 10 Mg Tablet, 10 MG PO BID, TAB 01/25/18 Allergies Allergies: Coded Allergies: sildenafil (Verified Allergy, Intermediate, BODY RASH, DIAPHORETIC/TACHYPNEIC, 07/16/18) PMhx/Soc History of Surgery: Yes (hysterectomy) Anesthesia Reaction: No Hx Neurological Disorder: No Hx Respiratory Disorders: Yes (sleep apnea, home o2) Hx Cardiac Disorders: Yes (htn, chf) Hx Psychiatric Problems: No Hx Miscellaneous Medical Probl: Yes (pls see EMR) Hx Alcohol Use: No Hx Substance Use: No Hx Tobacco Use: No Smoking Status: Never smoker Physical Exam Vitals Vital Signs Date Temp Pulse Resp B/P (MAP) Pulse Ox O2 O2 Flow FiO2 Time Delivery Rate 07/16/18 84 96 40 13:08 07/16/18 95 18 107/67 100 Room Air 12:13 (80) 07/16/18 99 24 98 Nasal 4.0 11:28 Cannula 07/16/18 Nasal 3.0 10:44 Cannula 07/16/18 98.1 122 26 112/76 91 10:09 (88) Physical Exam Constitutional:Well-developed. Well-nourished. Patient severe respiratory distress HEENT:Normocephalic. Atraumatic.Pupils were equal round reactive to light. Moist mucous membranes.No tonsillar exudates. Neck: No nuchal rigidity. No lymphadenopathy. No posterior cervical spine tenderness or step-offs. Respiratory: Patient using accessory muscles of respiration. Unable to speak more than 2 words at a time before becoming short of breath. Wheezing on end auscultation bilaterally. Cardiovascular: Regular rate regular rhythm.No murmurs. No rubs were appreciated.S1, S2 normal. Distal pulses are palpable 2+ bilaterally. GI: Abdomen was soft but exam is limited due to body habitus. Nontender. Non Distended. No pulsatile abdominal masses or bruits. No rebound. No guarding. Bowel sounds were present and normal. Muscle skeletal: Full range of motion of both the upper and lower extremities bilaterally.Normal muscle tone.No assymetrical calf tenderness or swelling. Skin: No petechia, no purpura. No lesions on the palms or the soles of the feet. No maculopapular rash. NEURO: Patient was alert, awake, orientated x3.No facial droop. Gait not observed due to severe respiratory distress.Speech had regular rate and rhythm. No focal neurological deficits. Result Diagram: 07/16/18 1052 07/16/18 1052 Results 24 hrs Laboratory Tests Test 07/16/18 10:49 07/16/18 10:52 07/16/18 12:40 POC Venous Lactate 1.3 mmol/L White Blood Count 10.1 10^3/ul Red Blood Count 4.54 10^6/ul Hemoglobin 12.5 g/dl Hematocrit 42.8 % Mean Corpuscular Volume 94.3 fl Mean Corpuscular 27.5 pg Hemoglobin Mean Corpuscular 29.2 g/dl Hemoglobin Concent Red Cell Distribution 14.6 % Width Platelet Count 249 10^3/UL Mean Platelet Volume 10.4 fl Immature Granulocytes % 0.600 % Neutrophils % 79.5 % Lymphocytes % 15.5 % Monocytes % 3.7 % Eosinophils % 0.2 % Basophils % 0.5 % Nucleated Red Blood Cells 0.0 /100WBC % Immature Granulocytes # 0.060 10^3/ul Neutrophils # 8.0 10^3/ul Lymphocytes # 1.6 10^3/ul Monocytes # 0.4 10^3/ul Eosinophils # 0.0 10^3/ul Basophils # 0.1 10^3/ul Nucleated Red Blood Cells 0.0 10^3/ul # Prothrombin Time 17.0 Sec Prothrombin Time Ratio 1.3 INR International 1.37 Normalized Ratio Activated 31.5 Sec Partial Thromboplast Time Sodium Level 143 mmol/L Potassium Level 4.8 mmol/L Chloride Level 102 mmol/L Carbon Dioxide Level 31 mmol/L Anion Gap 10 Blood Urea Nitrogen 24 mg/dl Creatinine 1.03 mg/dl Est Glomerular Filtrat 54 mL/min Rate mL/min Glucose Level 236 mg/dl Calcium Level 10.0 mg/dl Total Bilirubin 0.6 mg/dl Direct Bilirubin 0.00 mg/dl Indirect Bilirubin 0.6 mg/dl Aspartate Amino 15 IU/L Transf (AST/SGOT) Alanine 13 IU/L Aminotransferase (ALT/SGPT ) Alkaline Phosphatase 110 IU/L Creatine Kinase < 20 IU/L Creatine Kinase Index Creatinine Kinase MB 0.34 ng/ml (Mass) Troponin I < 0.012 ng/ml B-Type Natriuretic Peptide 1610 PG/ML Total Protein 7.2 g/dl Albumin 4.0 g/dl Globulin 3.20 g/dl Albumin/Globulin Ratio 1.25 Blood Gas Specimen Source Blood arterial Arterial Blood Date Drawn 07/16/2018 12:45:44 PM Arterial Blood pH 7.235 (Temp corrected) Arterial Blood pCO2 73.3 mmhg (Temp correct) Arterial Blood pO2 72.7 mmHG (Temp corrected) Arterial Blood HCO3 30.4 mmol/L Arterial Blood Base Excess 0.9 mmol/L Arterial Blood 91.6 mmHG Oxygen Saturation Ramy Test ACCEPTAB Arterial Blood Gas Right Radial Puncture Site Arterial 0.7 % Blood Carboxyhemoglobin Arterial Blood 0.1 % Methemoglobin Blood Gas A-a O2 77.0 mmHg Differential Oxyhemoglobin Percent 90.9 % Blood Gas Temperature 37.0 C Blood Gas Modality NASAL CANNULA FiO2 33.0 % Blood Gas Critical Value Sajan RUCKER MD Read Back Blood Gas Notified Whom [place] Blood Gas Notified Time 07/16/2018 12:55:29 PM Current Medications Medications Dose Sig/Meena Start Time Status Last (Trade) Ordered Route PRN Stop Time Admin Dose Reason Admin Albuterol 10 mg ONCE STAT 07/16/18 DC 07/16/18 (Proventil INH 10:26 11:27 0.5% (Neb)) 07/16/18 10:29 Ipratropium 1 mg ONCE STAT 07/16/18 DC 07/16/18 [place] INH 10:26 11:27 (Atrovent 07/16/18 10:29 0.02% (Neb)) Ondansetron 4 mg ER BRIDGE 07/16/18 HCl (Zofran PRN IV 12:30 Inj) NAUSEA/VOMITI 07/17/18 12:29 NG 650 mg ER BRIDGE 07/16/18 Acetaminophen PRN PO 12:30 (Tylenol .MILD PAIN 07/17/18 12:29 Tab) 1-3 OR TEMP Procedures/MDM The patient presented to the emergency department with shortness of breath. My differential diagnosis included but was not limited to upper airway obstruction, CHF, pulmonary embolism, cardiac ischemia, pneumonia, pneumothorax, anemia, drug overdose, pulmonary edema, COPD or asthma. The patient was in severe respiratory distress as the patient with 80% in the emergency room on room air. She was placed on 2 L nasal cannula and she still remained hypoxic at 89%. Therefore at this time the patient was given a nebulizer treatment and an arterial blood gas have been performed which showed respiratory acidosis with pH of 7.235 PCO2 elevated 73.3 and oxygen saturation was low at 72.7. Therefore at this time the patient was placed on noninvasive mechanical ventilation. Chest radiograph showed no evidence of pneumonia. This was reviewed by myself the radiologist. 12 Lead EKG tracing ordered and reviewed by myself showed: Irregular regular rhythm at 97 bpm and no arrhythmia. MA interval not present as P waves were not appreciated due to atrial fibrillation. Left axis deviation. QRS duration normal. No ST segment elevation No ST segment depression. No changes consistent with acute ischemia. Patient was hyperglycemic without ketosis. The patient will be admitted in serious condition under the care of Dr. Quevedo. Patient will go to the telemetry service. Respiratory distress had improved after being placed on BiPAP. Critical Care: Time: 85 minutes Treatments/Evaluations: Close monitoring and treatment of unstable vital signs, cardiorespiratory, and neurologic status, while maintaining tight balance of fluid, respiratory, and cardiac interventions. Time does not include performing any of the above billable procedures. Departure Diagnosis: Primary Impression: CHF exacerbation Heart failure type: unspecified Qualified Codes: I50.9 - Heart failure, unspecified Additional Impressions: Hyperglycemia without ketosis Acute respiratory acidosis Condition: Serious JAYJAY RUCKER MD Jul 16, 2018 13:24
--- NOTE | 2018-07-16 14:26 | HP ---
Date/Time of Note Date/Time of Note DATE: 07/16/18 TIME: 14:18 Assessment/Plan VTE Prophylaxis Pharmacological prophylaxis: apixaban Assessment/Plan Hospital Course 67 yo female with DMII, SUZIE, chronic hypoxemic resp failure on home O2, diastolic CHF presents with acute hypoxic/hypercapneic respiratory failure Acute hypoxic/hypercapneic respiratory failure: - Likely 2/2 diastolic CHF - Contineu BIPAP - Lasix diuresis - Bronchodilators DMII; - Basal/bolus insuliln A Fib: - Continue Apixaban, digoxin SUZIE: - BIPAP BRIAN: - Monitor renal function Discharge plan pending imrpovement in respiratory status Result Diagram: 07/16/18 1052 07/16/18 1052 Results 24hrs Laboratory Tests Test 07/16/18 10:49 07/16/18 10:52 07/16/18 12:40 POC Venous Lactate 1.3 White Blood Count 10.1 Red Blood Count 4.54 Hemoglobin 12.5 Hematocrit 42.8 Mean Corpuscular Volume 94.3 Mean Corpuscular Hemoglobin 27.5 L Mean Corpuscular 29.2 L Hemoglobin Concent Red Cell Distribution Width 14.6 H Platelet Count 249 Mean Platelet Volume 10.4 Immature Granulocytes % 0.600 H Neutrophils % 79.5 H Lymphocytes % 15.5 Monocytes % 3.7 Eosinophils % 0.2 Basophils % 0.5 Nucleated Red Blood Cells % 0.0 Immature Granulocytes # 0.060 H Neutrophils # 8.0 H Lymphocytes # 1.6 Monocytes # 0.4 Eosinophils # 0.0 Basophils # 0.1 Nucleated Red Blood Cells # 0.0 Prothrombin Time 17.0 H Prothrombin Time Ratio 1.3 INR International 1.37 Normalized Ratio Activated 31.5 Partial Thromboplast Time Sodium Level 143 Potassium Level 4.8 Chloride Level 102 Carbon Dioxide Level 31 Anion Gap 10 Blood Urea Nitrogen 24 H Creatinine 1.03 H Est Glomerular Filtrat 54 L Rate mL/min Glucose Level 236 H Calcium Level 10.0 Total Bilirubin 0.6 Direct Bilirubin 0.00 Indirect Bilirubin 0.6 Aspartate Amino 15 Transf (AST/SGOT) Alanine 13 Aminotransferase (ALT/SGPT) Alkaline Phosphatase 110 Creatine Kinase < 20 L Creatine Kinase Index Creatinine Kinase MB (Mass) 0.34 Troponin I < 0.012 B-Type Natriuretic Peptide 1610 H Total Protein 7.2 Albumin 4.0 Globulin 3.20 Albumin/Globulin Ratio 1.25 Blood Gas Specimen Source Blood arterial Arterial Blood Date Drawn 07/16/2018 12:45:44 PM Arterial Blood pH 7.235 *L (Temp corrected) Arterial Blood pCO2 73.3 H (Temp correct) Arterial Blood pO2 72.7 L (Temp corrected) Arterial Blood HCO3 30.4 H Arterial Blood Base Excess 0.9 Arterial Blood 91.6 L Oxygen Saturation Ramy Test ACCEPTAB Arterial Blood Gas Right Radial Puncture Site Arterial 0.7 Blood Carboxyhemoglobin Arterial Blood 0.1 Methemoglobin Blood Gas A-a O2 77.0 H Differential Oxyhemoglobin Percent 90.9 L Blood Gas Temperature 37.0 Blood Gas Modality NASAL CANNULA FiO2 33.0 Blood Gas Critical Value Sajan RUCKER MD Read Back Blood Gas Notified Whom [place] Blood Gas Notified Time 07/16/2018 12:55:29 PM HPI/ROS Admit Date/Time Admit Date/Time Hx of Present Illness 67 yo female with chronic hypoxic respiratory failure on home O2, diastolic CHF, SUZIE, DMII, A Fib who presnets with respiratory distress Patient chronically short of breath but symptoms have worsened over past two days or so. Feels constant dyspnea. Has been adherent to medications including diuretics she says. No cough, no sputum production, no fevers. In ED found to have hypercapnea and tachypnea. Given BIPAP and albuterol. Feelign a bit better now ROS Constitutional: no complaints, improved Eyes: no complaints ENT: no complaints Respiratory: no complaints Cardiovascular: no complaints Gastrointestinal: no complaints Genitourinary: no complaints Musculoskeletal: no complaints Skin: no complaints Neurologic: no complaints Endocrine: no complaints Lymphatic: no complaints Psychological: no complaints, nl mood/affect Immunologic: no complaints PMH/Family/Social Past Medical History Medical History: congestive heart failure, diabetes Medications Current Medications Ondansetron HCl (Zofran Inj) 4 mg ER BRIDGE PRN IV NAUSEA/VOMITING; Start 07/16/18 at 12:30; Stop 07/17/18 at 12:29 Acetaminophen (Tylenol Tab) 650 mg ER BRIDGE PRN PO .MILD PAIN 1-3 OR TEMP; Start 07/16/18 at 12:30; Stop 07/17/18 at 12:29 Furosemide (Lasix) 40 mg BID DIURETICS IV ; Start 07/16/18 at 14:00 Amlodipine Besylate (Norvasc) 10 mg DAILY PO ; Start 07/17/18 at 09:00 Apixaban (Eliquis) 5 mg BID PO ; Start 07/16/18 at 21:00; Status UNV Atorvastatin Calcium (Lipitor) 20 mg QHS PO ; Start 07/16/18 at 21:00 Carvedilol (Coreg) 12.5 mg BID PO ; Start 07/16/18 at 21:00 Digoxin (Digoxin) 0.25 mg DAILY@1300 PO ; Start 07/17/18 at 13:00 Coded Allergies: sildenafil (Verified Allergy, Intermediate, BODY RASH, DIAPHORETIC/TACHYPNEIC, 07/16/18) Past Surgical History Past Surgical Hx: no surgical history Family History Significant Family History: no pertinent family hx Social History Alcohol Use: none Smoking Status: Never smoker Drug Use: none Exam/Review of Systems Vital Signs Vitals Vital Signs Date Temp Pulse Resp B/P (MAP) Pulse Ox O2 O2 Flow FiO2 Time Delivery Rate 07/16/18 84 96 40 13:08 07/16/18 18 107/67 Room Air 12:13 (80) 07/16/18 4.0 11:28 07/16/18 98.1 10:09 Exam Exam Obese female AO3 Mild tachypnea + JVD Irreg irreg Lung sounds distant, a bit coarse Abdomen obese, soft, nt Ext with venous stasis changes, trace edema JOSUE TOLENTINO MD Jul 16, 2018 14:26
[2018-07-16] MEDS ORDERED: morphine 2 MG INJ IV PRN (14:30)
[2018-07-16] MEDS ORDERED: NACL 0.9% 3 ML SYG IV SCH (14:30)
[2018-07-16] MEDS ORDERED: GLUCOSE GEL 15 GRAM TUBE PO PRN ×2 (15:30)
[2018-07-16] MEDS ORDERED: DEXTROSE 50% 50 ML SYRINGE IV PRN ×2 (15:30)
[2018-07-16] MEDS ORDERED: GLUCOSE GEL 15 GRAM TUBE BUCCAL PRN (15:30)
[2018-07-16] MEDS ORDERED: GLUCAGON 1 MG INJ IM PRN (15:30)
[2018-07-16] MEDS: FUROSEMIDE 40 MG INJ IV SCH ×2 (16:16→21:49)
[2018-07-16 18:00] VITALS: BP 165/71; PULSE 76; RESP 18
[2018-07-16] MEDS: INSULIN ASPART [NOVOLOG] 3 ML PEN SC SCH ×3 (18:42→21:00)
[2018-07-16 20:00] VITALS: BP 118/81; PULSE 77; RESP 18
[2018-07-16 20:22] VITALS: PULSE 90
[2018-07-16] MEDS: ALBUTEROL/IPRATROPIUM (NEB) 3 ML AMP HHN SCH (21:01)
[2018-07-16] MEDS: APIXABAN 5 MG TABLET PO SCH (21:47)
[2018-07-16] MEDS: ATORVASTATIN 20 MG TAB PO SCH (21:47)
[2018-07-16 22:21] VITALS: PULSE 93
[2018-07-16 22:30] VITALS: Ht 154.9 cm; Wt 144.6 kg
[2018-07-16 23:22] VITALS: PULSE 82
[2018-07-17] VITALS (19 sets, daily range): BP systolic 101–141; BP diastolic 50–79; PULSE 81–102; RESP 18–20
[2018-07-17] MEDS: INSULIN GLARGINE [LANTus] (100 UNITS/ML) SYG SC SCH ×2 (00:06→21:31)
[2018-07-17] MEDS: ALBUTEROL/IPRATROPIUM (NEB) 3 ML AMP HHN SCH ×6 (01:13→21:12)
[2018-07-17] MEDS: PIPER-TAZO 3.375 GM IV (PMX) 100 ML IVPB SCH ×4 (02:39→20:16)
[2018-07-17] MEDS: FUROSEMIDE 40 MG INJ IV SCH ×2 (07:15→17:29)
[2018-07-17] MEDS: INSULIN ASPART [NOVOLOG] 3 ML PEN SC SCH ×7 (07:55→21:31)
[2018-07-17] MEDS: AMLODIPINE 10 MG TAB PO SCH (08:48)
[2018-07-17] MEDS: APIXABAN 5 MG TABLET PO SCH ×2 (08:48→20:16)
[2018-07-17] MEDS ORDERED: VANCOMYCIN IV PER PHARMACY XX SCH (11:00)
[2018-07-17] MEDS ORDERED: VANCOMYCIN HCL 2 GM in SOD CHLORIDE 0.9% 500 ML IVPB ONE (13:00)
[2018-07-17] MEDS: DIGOXIN 0.25 MG TAB PO SCH (13:50)
--- NOTE | 2018-07-17 14:23 | PN ---
Date/Time of Note Date/Time of Note DATE: 07/17/18 TIME: 14:22 Assessment/Plan VTE Prophylaxis Risk score (from Ns)>0 risk: 4 SCD applied (from Ns): Yes Pharmacological prophylaxis: heparin Assessment/Plan Hospital Course Obese No distress AOX3 Nonlabored No wheezing + JVD Trace pedal edema 67 yo female with DMII, SUZIE, chronic hypoxemic resp failure on home O2, diastolic CHF presents with acute hypoxic/hypercapneic respiratory failure Acute hypoxic/hypercapneic respiratory failure: - Likely 2/2 diastolic CHF/OHS - Continue BIPAP - Lasix diuresis - Bronchodilators Chronic hypoxic respiratory failure: - Dc on home o2 DMII; - Basal/bolus insuliln A Fib: - Continue Apixaban, digoxin SUZIE: - BIPAP BRIAN: - Monitor renal function Discharge plan pending imrpovement in respiratory status Result Diagram: 07/17/18 0501 07/17/18 0501 Results 24hrs Laboratory Tests Test 07/16/18 16:20 07/16/18 18:05 07/16/18 21:50 07/16/18 23:00 Urine Color YELLOW Urine Clarity SLIGHTLY CLOUDY A Urine pH 5.0 Urine Specific 1.017 [place] Urine Ketones NEGATIVE Urine Nitrite NEGATIVE Urine Bilirubin NEGATIVE Urine NEGATIVE Urobilinogen Urine Leukocyte NEGATIVE Esterase Urine 1 Microscopic RBC Urine 5 Microscopic WBC Urine Squamous FEW Epithelial Cells Urine Mucus FEW A Urine Hemoglobin NEGATIVE Urine Glucose 3+ H Urine Total NEGATIVE Protein Bedside Glucose 141 111 Blood Gas Blood arterial Specimen Source Arterial Blood 07/16/2018 11:37 Date Drawn :46 PM Arterial Blood 7.318 L pH (Temp corrected) Arterial Blood 62.1 H pCO2 (Temp correct) Arterial Blood 67.1 L pO2 (Temp corrected) Arterial Blood 31.1 H HCO3 Arterial Blood 3.4 H Base Excess Arterial Blood 91.9 L Oxygen Saturatio n Ramy Test ACCEPTAB Arterial Blood Right Radial Gas Puncture Site Arterial 0.3 Blood Carboxyhem oglobin Arterial Blood 0.1 Methemoglobin Blood Gas A-a O2 146.7 H Differential Oxyhemoglobin 91.5 L Percent Blood Gas 37.0 Temperature Blood Gas 20.0 Respiration Rate Blood Gas Actual 29 Respiration Rate Blood Gas MASK - BIPAP Modality FiO2 40.0 Blood Gas 15/5 IPAP/EPAP Ratio Blood Gas RH Notified Whom Blood Gas 07/16/2018 11:48 Notified Time :59 PM Test 4/20/19 00:01 07/17/18 05:01 07/17/18 07:55 07/17/18 11:59 Bedside Glucose 114 128 166 White Blood 8.8 Count Red Blood Count 4.24 Hemoglobin 11.8 L Hematocrit 39.9 Mean Corpuscular 94.1 Volume Mean Corpuscular 27.8 L Hemoglobin Mean Corpuscular 29.6 L Hemoglobin Kandace nt Red Cell 14.3 Distribution Width Platelet Count 228 Mean Platelet 10.9 H Volume Immature 0.500 H Granulocytes % Neutrophils % 75.6 Lymphocytes % 18.1 Monocytes % 5.1 Eosinophils % 0.2 Basophils % 0.5 Nucleated Red 0.0 Blood Cells % Immature 0.040 H Granulocytes # Neutrophils # 6.7 Lymphocytes # 1.6 Monocytes # 0.5 Eosinophils # 0.0 Basophils # 0.0 Nucleated Red 0.0 Blood Cells # Sodium Level 144 Potassium Level 4.0 Chloride Level 106 Carbon Dioxide 32 H Level Anion Gap 6 Blood Urea 24 H Nitrogen Creatinine 1.04 H Est Glomerular 53 L Filtrat Rate mL/min Glucose Level 116 # Hemoglobin A1c 8.8 H Calcium Level 10.2 Total Bilirubin 0.4 Direct Bilirubin 0.00 Indirect 0.4 Bilirubin Aspartate Amino 15 Transf (AST/SGOT ) Alanine 16 Aminotransferase (ALT/SGPT) Alkaline 97 Phosphatase Total Protein 6.5 Albumin 3.5 Globulin 3.00 Albumin/Globulin 1.16 Ratio Subjective 24 Hr Interval Summary Free Text/Dictation Doing well Breathing is comfortable Tolerating bipap Diuresing effectively Exam/Review of Systems Exam Vitals Vital Signs Date Temp Pulse Resp B/P (MAP) Pulse Ox O2 O2 Flow FiO2 Time Delivery Rate 07/17/18 91 99 40 13:01 07/17/18 97.5 20 108/50 Nasal 11:00 (69) Cannula 07/16/18 4.0 21:02 Intake and Output 07/16/18 07/16/18 07/17/18 1515:00 23:00 07:00 IntakeIntake Total 400 ml BalanceBalance 400 ml Results Results 24hrs Laboratory Tests Test 07/16/18 16:20 07/16/18 18:05 07/16/18 21:50 07/16/18 23:00 Urine Color YELLOW Urine Clarity SLIGHTLY CLOUDY A Urine pH 5.0 Urine Specific 1.017 [place] Urine Ketones NEGATIVE Urine Nitrite NEGATIVE Urine Bilirubin NEGATIVE Urine NEGATIVE Urobilinogen Urine Leukocyte NEGATIVE Esterase Urine 1 Microscopic RBC Urine 5 Microscopic WBC Urine Squamous FEW Epithelial Cells Urine Mucus FEW A Urine Hemoglobin NEGATIVE Urine Glucose 3+ H Urine Total NEGATIVE Protein Bedside Glucose 141 111 Blood Gas Blood arterial Specimen Source Arterial Blood 07/16/2018 11:37 Date Drawn :46 PM Arterial Blood 7.318 L pH (Temp corrected) Arterial Blood 62.1 H pCO2 (Temp correct) Arterial Blood 67.1 L pO2 (Temp corrected) Arterial Blood 31.1 H HCO3 Arterial Blood 3.4 H Base Excess Arterial Blood 91.9 L Oxygen Saturatio n Ramy Test ACCEPTAB Arterial Blood Right Radial Gas Puncture Site Arterial 0.3 Blood Carboxyhem oglobin Arterial Blood 0.1 Methemoglobin Blood Gas A-a O2 146.7 H Differential Oxyhemoglobin 91.5 L Percent Blood Gas 37.0 Temperature Blood Gas 20.0 Respiration Rate Blood Gas Actual 29 Respiration Rate Blood Gas MASK - BIPAP Modality FiO2 40.0 Blood Gas 15/5 IPAP/EPAP Ratio Blood Gas RH Notified Whom Blood Gas 07/16/2018 11:48 Notified Time :59 PM Test 07/17/18 00:01 07/17/18 05:01 07/17/18 07:55 07/17/18 11:59 Bedside Glucose 114 128 166 White Blood 8.8 Count Red Blood Count 4.24 Hemoglobin 11.8 L Hematocrit 39.9 Mean Corpuscular 94.1 Volume Mean Corpuscular 27.8 L Hemoglobin Mean Corpuscular 29.6 L Hemoglobin Kandace nt Red Cell 14.3 Distribution Width Platelet Count 228 Mean Platelet 10.9 H Volume Immature 0.500 H Granulocytes % Neutrophils % 75.6 Lymphocytes % 18.1 Monocytes % 5.1 Eosinophils % 0.2 Basophils % 0.5 Nucleated Red 0.0 Blood Cells % Immature 0.040 H Granulocytes # Neutrophils # 6.7 Lymphocytes # 1.6 Monocytes # 0.5 Eosinophils # 0.0 Basophils # 0.0 Nucleated Red 0.0 Blood Cells # Sodium Level 144 Potassium Level 4.0 Chloride Level 106 Carbon Dioxide 32 H Level Anion Gap 6 Blood Urea 24 H Nitrogen Creatinine 1.04 H Est Glomerular 53 L Filtrat Rate mL/min Glucose Level 116 # Hemoglobin A1c 8.8 H Calcium Level 10.2 Total Bilirubin 0.4 Direct Bilirubin 0.00 Indirect 0.4 Bilirubin Aspartate Amino 15 Transf (AST/SGOT ) Alanine 16 Aminotransferase (ALT/SGPT) Alkaline 97 Phosphatase Total Protein 6.5 Albumin 3.5 Globulin 3.00 Albumin/Globulin 1.16 Ratio Medications Medication Current Medications Furosemide (Lasix) 40 mg BID DIURETICS IV Last administered on 07/17/18 07:15; Admin Dose 40 MG; Start 07/16/18 at 14:00 Amlodipine Besylate (Norvasc) 10 mg DAILY PO Last administered on 07/17/18 08:48; Admin Dose 10 MG; Start 07/17/18 at 09:00 Apixaban (Eliquis) 5 mg BID PO Last administered on 07/17/18 08:48; Admin Dose 5 MG; Start 07/16/18 at 21:00 Atorvastatin Calcium (Lipitor) 20 mg QHS PO Last administered on 07/16/18 21:47; Admin Dose 20 MG; Start 07/16/18 at 21:00 Carvedilol (Coreg) 12.5 mg BID PO Last administered on 07/17/18 08:48; Admin Dose 12.5 MG; Start 07/16/18 at 21:00 Digoxin (Digoxin) 0.25 mg DAILY@1300 PO Last administered on 07/17/18 13:50; Admin Dose 0.25 MG; Start 07/17/18 at 13:00 Albuterol/ Ipratropium (Duoneb) 3 ml Q4H RESP THERAPY HHN Last administered on 07/17/18 13:01; Admin Dose 3 ML; Start 07/16/18 at 17:00 Insulin Glargine (Lantus) 20 units DAILY@2000 SC Last administered on 07/17/18 00:06; Admin Dose 20 UNITS; Start 07/16/18 at 20:00 Insulin Aspart (Novolog Insulin Pen) 7 unit WITH MEALS SC Last administered on 07/17/18 12:15; Admin Dose 7 UNIT; Start 07/16/18 at 18:00 Insulin Aspart (Novolog Insulin Pen) NOVOLOG *MILD* ALGORITHM WITH MEALS BEDTIME SC Last administered on 07/17/18 12:15; Admin Dose 1 UNIT; Start 07/16/18 at 18:00 IV Flush (NS 3 ml) 3 ml PER PROTOCOL IV ; Start 07/16/18 at 14:30 Morphine Sulfate (morphine) 2 mg Q4H PRN IV .SEVERE PAIN 7-10; Start 07/16/18 at 14:30 Miscellaneous Information 1 ea NOTE XX ; Start 07/16/18 at 15:30 Glucose (Glutose) 15 gm Q15M PRN PO DECREASED GLUCOSE; Start 07/16/18 at 15:30 Glucose (Glutose) 22.5 gm Q15M PRN PO DECREASED GLUCOSE; Start 07/16/18 at 15:30 Dextrose (D50w Syringe) 25 ml Q15M PRN IV DECREASED GLUCOSE; Start 07/16/18 at 15:30 Dextrose (D50w Syringe) 50 ml Q15M PRN IV DECREASED GLUCOSE; Start 07/16/18 at 15:30 Glucagon (Glucagen) 1 mg Q15M PRN IM DECREASED GLUCOSE; Start 07/16/18 at 15:30 Glucose (Glutose) 15 gm Q15M PRN BUCCAL DECREASED GLUCOSE; Start 07/16/18 at 15:30 Piperacillin Sod/ Tazobactam Sod 100 ml @ 200 mls/hr Q6 IVPB Last administered on 07/17/18at 11:32; Admin Dose 200 MLS/HR; Start 07/17/18 at 02:00 Vancomycin HCl (Vanco Iv Per Pharmacy) VANCOMYCIN PER PHARMACY PER PROTOCOL XX ; Start 07/17/18 at 11:00 Vancomycin HCl 2 gm/Sodium Chloride 500 ml @ 125 mls/hr ONCE ONCE IVPB Last administered on 07/17/18at 13:50; Admin Dose 125 MLS/HR; Start 07/17/18 at 13:00; Stop 07/17/18 at 16:59 Vancomycin HCl 250 ml @ 125 mls/hr Q12H IVPB ; Start 07/18/18 at 01:00 JOSUE TOLENTINO MD Jul 17, 2018 14:23
[2018-07-17] MEDS: ATORVASTATIN 20 MG TAB PO SCH (20:16)
[2018-07-18] VITALS (16 sets, daily range): BP systolic 115–146; BP diastolic 73–100; PULSE 77–106; RESP 18–20
[2018-07-18] MEDS: VANCOMYCIN 1 GM 250 ML IVPB SCH ×2 (02:14→13:59)
[2018-07-18] MEDS: ALBUTEROL/IPRATROPIUM (NEB) 3 ML AMP HHN SCH ×6 (02:43→20:59)
[2018-07-18] MEDS: FUROSEMIDE 40 MG INJ IV SCH ×2 (06:43→17:34)
[2018-07-18] MEDS: PIPER-TAZO 3.375 GM IV (PMX) 100 ML IVPB SCH ×5 (06:43→23:32)
[2018-07-18] MEDS: INSULIN ASPART [NOVOLOG] 3 ML PEN SC SCH ×7 (08:00→20:52)
[2018-07-18] MEDS: AMLODIPINE 10 MG TAB PO SCH (08:45)
[2018-07-18] MEDS: APIXABAN 5 MG TABLET PO SCH ×2 (08:45→20:54)
--- NOTE | 2018-07-18 13:33 | CONS ---
DATE OF ADMISSION: 07/16/2018 DATE OF CONSULTATION: REASON FOR CONSULTATION: Shortness of breath. Thank you, Dr. Quevedo, for this consultation. HISTORY OF PRESENT ILLNESS: This is a 67-year-old lady with a history of obstructive sleep apnea, co ngestive cardiac failure, likely diastolic dysfunction, insulin-dependent diabetes, came in with deyvi ral-day history of increasing shortness of breath, orthopnea, PND and a possible right effusion. Den ies any fever or chills, no chest pain or palpitations. She has home O2 for the past 5 years with a home CPAP device. The patient was treated with diuretics, bronchodilators with significant improveme nt in her symptoms. She is ambulating without significant respiratory distress. PAST MEDICAL HISTORY: As above. MEDICATIONS: Per chart. ALLERGIES: SILDENAFIL. SOCIAL HISTORY: She is a nonsmoker, no alcohol, no history of drug use. FAMILY HISTORY: Noncontributory. SYSTEMS REVIEW: A 12-point review of systems was negative other than that mentioned above. PHYSICAL EXAMINATION: GENERAL: Moderately obese lady, awake, alert, oriented, talking in full and complete sentences. VITAL SIGNS: Currently afebrile, pulse is 90, blood pressure 115/73, O2 saturation 90% on 4 L nasal cannula. NECK: Supple. No JVD or lymphadenopathy. CARDIAC: S1, S2, no added sounds or murmurs. CHEST: Diminished air entry bilaterally. ABDOMEN: Obese, soft, nontender. No guarding or rebound. EXTREMITIES: No cyanosis, clubbing, 1+ edema. NEUROLOGIC: Generalized weakness. LABORATORY DATA: White count 8.5, hemoglobin 12.2, platelets of 220, BUN 22, creatinine 0.9. ABG: pH initially 7.23, now 7.4. INR 1.37. DIAGNOSTIC DATA: Chest x-ray was reviewed, showed cardiomegaly, vascular congestion, possible right effusion. IMPRESSION AND PLAN: 1. Acute hypoxemic respiratory failure, likely secondary to volume overload and diastolic heart fail ure. Differential does include thromboembolic disease and/or community-acquired pneumonia, although this is less likely given absence of leukocytosis. The patient should continue on current antibiotic s, but consider de-escalation anticoagulation for atrial fibrillation, diabetes management and diuret ics. I will obtain CT chest, noncontrast, to evaluate lung parenchyma and lower extremity Dopplers. She should follow up with me for pulmonary function testing, sleep study and continuing therapy. Dictated By: SHEILA HUGHES MD SV/NTS Conf#: [id number] DID#: [id number] CC: JOSUE QUEVEDO MD;*EndCC*
[2018-07-18] MEDS: DIGOXIN 0.25 MG TAB PO SCH (14:00)
--- NOTE | 2018-07-18 17:23 | PN ---
Date/Time of Note Date/Time of Note DATE: 07/18/18 TIME: 17:23 Assessment/Plan VTE Prophylaxis Risk score (from Ns)>0 risk: 4 SCD applied (from Ns): Yes Pharmacological prophylaxis: heparin Lines/Catheters Urinary Cath still in place: No Assessment/Plan Hospital Course Obese No distress AOX3 Nonlabored No wheezing + JVD Trace pedal edema 67 yo female with DMII, SUZIE, chronic hypoxemic resp failure on home O2, diastolic CHF presents with acute hypoxic/hypercapneic respiratory failure Acute hypoxic/hypercapneic respiratory failure: - Likely 2/2 diastolic CHF/OHS - Continue BIPAP - Lasix diuresis, remains overloaded - Bronchodilators Chronic hypoxic respiratory failure: - Dc on home o2 DMII; - Basal/bolus insuliln A Fib: - Continue Apixaban, digoxin SUZIE: - BIPAP BRIAN: - Monitor renal function Discharge plan pending imrpovement in respiratory status Result Diagram: 07/18/18 0546 07/18/18 0546 Results 24hrs Laboratory Tests Test 07/17/18 17:30 07/17/18 20:22 07/18/18 05:46 07/18/18 07:00 Bedside Glucose 157 185 White Blood Count 8.5 Red Blood Count 4.42 Hemoglobin 12.2 Hematocrit 40.8 Mean Corpuscular 92.3 Volume Mean Corpuscular 27.6 L Hemoglobin Mean Corpuscular 29.9 L Hemoglobin Concen t Red Cell 14.6 H Distribution Width Platelet Count 220 Mean Platelet 10.7 H Volume Immature 0.200 Granulocytes % Neutrophils % 74.4 Lymphocytes % 19.1 Monocytes % 5.2 Eosinophils % 0.5 Basophils % 0.6 Nucleated Red 0.0 Blood Cells % Immature 0.020 Granulocytes # Neutrophils # 6.3 Lymphocytes # 1.6 Monocytes # 0.4 Eosinophils # 0.0 Basophils # 0.1 Nucleated Red 0.0 Blood Cells # Sodium Level 144 Potassium Level 3.6 Chloride Level 100 Carbon Dioxide 35 H Level Anion Gap 9 Blood Urea 22 H Nitrogen Creatinine 0.90 Est Glomerular > 60 Filtrat Rate mL/min Glucose Level 132 Calcium Level 9.5 Blood Gas Blood arterial Specimen Source Arterial Blood 07/18/2018 8:26:5 Date Drawn 6 AM Arterial Blood pH 7.417 (Temp corrected) Arterial Blood 59.4 H pCO2 (Temp correct) Arterial Blood 60.5 L pO2 (Temp corrected) Arterial Blood 37.4 H HCO3 Arterial Blood 10.4 H Base Excess Arterial Blood 91.4 L Oxygen Saturation Ramy Test ACCEPTAB Arterial Blood Right Radial Gas Puncture Site Arterial 0.7 Blood Carboxyhemo globin Arterial Blood 0.2 Methemoglobin Blood Gas A-a O2 105.4 H Differential Oxyhemoglobin 90.6 L Percent Blood Gas 37.0 Temperature Blood Gas NASAL CANNULA Modality FiO2 33.0 Blood Gas DT Notified Whom Blood Gas 07/18/2018 8:53:1 Notified Time 2 AM Test 07/18/18 07:58 07/18/18 12:07 Bedside Glucose 134 223 H Subjective 24 Hr Interval Summary Free Text/Dictation Breathing slightly improved. Imaging shows continued pulmonary edema. No evidence of VTE Exam/Review of Systems Exam Vitals Vital Signs Date Temp Pulse Resp B/P (MAP) Pulse Ox O2 O2 Flow FiO2 Time Delivery Rate 07/18/18 91 16:00 07/18/18 98.2 20 125/78 97 Nasal 15:00 (94) Cannula 07/18/18 4.0 08:13 07/18/18 40 04:22 Intake and Output 07/17/18 07/17/18 07/18/18 1515:00 23:00 07:00 IntakeIntake Total 100 ml 1600 ml 1000 ml BalanceBalance 100 ml 1600 ml 1000 ml Results Results 24hrs Laboratory Tests Test 07/17/18 17:30 07/17/18 20:22 07/18/18 05:46 07/18/18 07:00 Bedside Glucose 157 185 White Blood Count 8.5 Red Blood Count 4.42 Hemoglobin 12.2 Hematocrit 40.8 Mean Corpuscular 92.3 Volume Mean Corpuscular 27.6 L Hemoglobin Mean Corpuscular 29.9 L Hemoglobin Concen t Red Cell 14.6 H Distribution Width Platelet Count 220 Mean Platelet 10.7 H Volume Immature 0.200 Granulocytes % Neutrophils % 74.4 Lymphocytes % 19.1 Monocytes % 5.2 Eosinophils % 0.5 Basophils % 0.6 Nucleated Red 0.0 Blood Cells % Immature 0.020 Granulocytes # Neutrophils # 6.3 Lymphocytes # 1.6 Monocytes # 0.4 Eosinophils # 0.0 Basophils # 0.1 Nucleated Red 0.0 Blood Cells # Sodium Level 144 Potassium Level 3.6 Chloride Level 100 Carbon Dioxide 35 H Level Anion Gap 9 Blood Urea 22 H Nitrogen Creatinine 0.90 Est Glomerular > 60 Filtrat Rate mL/min Glucose Level 132 Calcium Level 9.5 Blood Gas Blood arterial Specimen Source Arterial Blood 07/18/2018 8:26:5 Date Drawn 6 AM Arterial Blood pH 7.417 (Temp corrected) Arterial Blood 59.4 H pCO2 (Temp correct) Arterial Blood 60.5 L pO2 (Temp corrected) Arterial Blood 37.4 H HCO3 Arterial Blood 10.4 H Base Excess Arterial Blood 91.4 L Oxygen Saturation Ramy Test ACCEPTAB Arterial Blood Right Radial Gas Puncture Site Arterial 0.7 Blood Carboxyhemo globin Arterial Blood 0.2 Methemoglobin Blood Gas A-a O2 105.4 H Differential Oxyhemoglobin 90.6 L Percent Blood Gas 37.0 Temperature Blood Gas NASAL CANNULA Modality FiO2 33.0 Blood Gas DT Notified Whom Blood Gas 07/18/2018 8:53:1 Notified Time 2 AM Test 07/18/18 07:58 07/18/18 12:07 Bedside Glucose 134 223 H Medications Medication Current Medications Furosemide (Lasix) 40 mg BID DIURETICS IV Last administered on 07/18/18 06:43; Admin Dose 40 MG; Start 07/16/18 at 14:00 Amlodipine Besylate (Norvasc) 10 mg DAILY PO Last administered on 07/18/18 08:45; Admin Dose 10 MG; Start 07/17/18 at 09:00 Apixaban (Eliquis) 5 mg BID PO Last administered on 07/18/18 08:45; Admin Dose 5 MG; Start 07/16/18 at 21:00 Atorvastatin Calcium (Lipitor) 20 mg QHS PO Last administered on 07/17/18 20:16; Admin Dose 20 MG; Start 07/16/18 at 21:00 Carvedilol (Coreg) 12.5 mg BID PO Last administered on 07/18/18 08:44; Admin Dose 12.5 MG; Start 07/16/18 at 21:00 Digoxin (Digoxin) 0.25 mg DAILY@1300 PO Last administered on 07/18/18 14:00; Admin Dose 0.25 MG; Start 07/17/18 at 13:00 Albuterol/ Ipratropium (Duoneb) 3 ml Q4H RESP THERAPY HHN Last administered on 07/18/18 16:54; Admin Dose 3 ML; Start 07/16/18 at 17:00 Insulin Glargine (Lantus) 20 units DAILY@2000 SC Last administered on 07/17/18at 21:31; Admin Dose 20 UNITS; Start 07/16/18 at 20:00 Insulin Aspart (Novolog Insulin Pen) 7 unit WITH MEALS SC Last administered on 07/18/18at 12:13; Admin Dose 7 UNIT; Start 07/16/18 at 18:00 Insulin Aspart (Novolog Insulin Pen) NOVOLOG *MILD* ALGORITHM WITH MEALS BEDTIME SC Last administered on 07/18/18at 12:14; Admin Dose 3 UNIT; Start 07/16/18 at 18:00 IV Flush (NS 3 ml) 3 ml PER PROTOCOL IV ; Start 07/16/18 at 14:30 Morphine Sulfate (morphine) 2 mg Q4H PRN IV .SEVERE PAIN 7-10; Start 07/16/18 at 14:30 Miscellaneous Information 1 ea NOTE XX ; Start 07/16/18 at 15:30 Glucose (Glutose) 15 gm Q15M PRN PO DECREASED GLUCOSE; Start 07/16/18 at 15:30 Glucose (Glutose) 22.5 gm Q15M PRN PO DECREASED GLUCOSE; Start 07/16/18 at 15:30 Dextrose (D50w Syringe) 25 ml Q15M PRN IV DECREASED GLUCOSE; Start 07/16/18 at 15:30 Dextrose (D50w Syringe) 50 ml Q15M PRN IV DECREASED GLUCOSE; Start 07/16/18 at 15:30 Glucagon (Glucagen) 1 mg Q15M PRN IM DECREASED GLUCOSE; Start 07/16/18 at 15:30 Glucose (Glutose) 15 gm Q15M PRN BUCCAL DECREASED GLUCOSE; Start 07/16/18 at 15:30 Piperacillin Sod/ Tazobactam Sod 100 ml @ 200 mls/hr Q6 IVPB Last administered on 07/18/18at 12:31; Admin Dose 200 MLS/HR; Start 07/17/18 at 02:00 Vancomycin HCl (Vanco Iv Per Pharmacy) VANCOMYCIN PER PHARMACY PER PROTOCOL XX ; Start 07/17/18 at 11:00 Vancomycin HCl 250 ml @ 125 mls/hr Q12H IVPB Last administered on 07/18/18at 13:59; Admin Dose 125 MLS/HR; Start 4/21/19 at 01:00 Miscellaneous Information (*Rx Drug Level Order Reminder*) VANCO TROUGH ON @ 000 0000 ONCE XX ; Start 07/19/18 at 00:00; Stop 07/19/18 at 00:01 JOSUE TOLENTINO MD Jul 18, 2018 17:23
[2018-07-18] MEDS: ATORVASTATIN 20 MG TAB PO SCH (20:53)
[2018-07-18] MEDS: INSULIN GLARGINE [LANTus] (100 UNITS/ML) SYG SC SCH (20:59)
[2018-07-19] VITALS (10 sets, daily range): BP systolic 125–149; BP diastolic 7–82; PULSE 78–114; RESP 20
[2018-07-19] MEDS: ALBUTEROL/IPRATROPIUM (NEB) 3 ML AMP HHN SCH ×4 (01:45→14:11)
[2018-07-19] MEDS: VANCOMYCIN 1 GM 250 ML IVPB SCH ×2 (01:52→13:30)
[2018-07-19] MEDS: PIPER-TAZO 3.375 GM IV (PMX) 100 ML IVPB SCH ×2 (05:20→11:29)
[2018-07-19] MEDS: FUROSEMIDE 40 MG INJ IV SCH (05:22)
[2018-07-19] MEDS: INSULIN ASPART [NOVOLOG] 3 ML PEN SC SCH ×4 (07:45→11:41)
[2018-07-19] MEDS: APIXABAN 5 MG TABLET PO SCH (09:29)
[2018-07-19] MEDS: AMLODIPINE 10 MG TAB PO SCH (09:30)
[2018-07-19] MEDS ORDERED: POTASSIUM CHLORIDE (SR) 20 MEQ TAB PO STA (10:28)
--- NOTE | 2018-07-19 11:22 | PDOCDIS ---
Discharge Instructions CONDITION [id number] Patient Condition: [id number] Good HOME CARE INSTRUCTIONS: [id number] Diet Instructions: [id number] Reduced Calorie ACTIVITY: [id number] Activity Restrictions: Kalba9m No Restrictions FOLLOW UP/APPOINTMENTS Follow-up Plan FOLLOW UP WITH YOUR PCP IN 1-2 WEEKS TOMAS MARCELO Jul 19, 2018 11:22
--- NOTE | 2018-07-19 12:54 | CONS ---
Consult Date/Type/Reason Admit Date/Time Jul 16, 2018 at 12:47 Initial Consult Date Type of Consult Pulmonary Date/Time of Note DATE: 07/19/18 TIME: 12:49 Subjective Patient comfortable this morning. No respiratory distress. Objective Vital Signs Date Temp Pulse Resp B/P (MAP) Pulse Ox O2 O2 Flow FiO2 Time Delivery Rate 07/19/18 97.7 84 20 125/7 (46) 96 11:22 07/19/18 4.0 09:15 07/19/18 Nasal 09:14 Cannula 07/19/18 40 03:19 Intake and Output 07/18/18 07/18/18 07/19/18 1414:59 22:59 06:59 IntakeIntake Total 440 ml 969 ml 250 ml OutputOutput Total 2000 ml 450 ml BalanceBalance 440 ml -1031 ml -200 ml Exam GENERAL: Elderly appearing lady comfortable at rest no acute distress VITAL SIGNS: per chart NECK: Supple. No JVD or lymphadenopathy. CARDIAC EXAM: S1, S2. No added sounds or murmurs. CHEST: clear bilaterally, No added sounds, rales or wheezes ABDOMEN: Soft, nontender. No guarding or rebound. EXTREMITIES: No cyanosis, clubbing or edema. NEUROLOGIC: Generalized weakness. No focal deficits. Results/Medications Result Diagram: 07/19/18 0544 07/19/18 0544 Results 24 hrs Laboratory Tests Test 07/18/18 17:33 07/18/18 20:52 07/19/18 00:19 07/19/18 05:44 Bedside Glucose 119 151 Vancomycin Level 16.8 Trough White Blood Count 9.3 Red Blood Count 4.46 Hemoglobin 12.4 Hematocrit 40.8 Mean Corpuscular 91.5 Volume Mean Corpuscular 27.8 L Hemoglobin Mean Corpuscular 30.4 L Hemoglobin Concent Red Cell 14.4 Distribution Width Platelet Count 221 Mean Platelet Volume 10.2 Immature 0.400 Granulocytes % Neutrophils % 72.7 Lymphocytes % 21.1 Monocytes % 4.9 Eosinophils % 0.4 Basophils % 0.5 Nucleated Red Blood 0.0 Cells % Immature 0.040 H Granulocytes # Neutrophils # 6.8 Lymphocytes # 2.0 Monocytes # 0.5 Eosinophils # 0.0 Basophils # 0.1 Nucleated Red Blood 0.0 Cells # Sodium Level 142 Potassium Level 3.3 L Chloride Level 101 Carbon Dioxide Level 35 H Anion Gap 6 Blood Urea Nitrogen 20 Creatinine 0.92 Est Glomerular > 60 Filtrat Rate mL/min Glucose Level 159 Calcium Level 10.0 Test 07/19/18 07:31 07/19/18 11:34 Bedside Glucose 180 208 Medications Current Medications Furosemide (Lasix) 40 mg BID DIURETICS IV Last administered on 07/19/18 05:22; Admin Dose 40 MG; Start 07/16/18 at 14:00 Amlodipine Besylate (Norvasc) 10 mg DAILY PO Last administered on 07/19/18 09:30; Admin Dose 10 MG; Start 07/17/18 at 09:00 Apixaban (Eliquis) 5 mg BID PO Last administered on 07/19/18 09:29; Admin Dose 5 MG; Start 07/16/18 at 21:00 Atorvastatin Calcium (Lipitor) 20 mg QHS PO Last administered on 07/18/18 20:53; Admin Dose 20 MG; Start 07/16/18 at 21:00 Carvedilol (Coreg) 12.5 mg BID PO Last administered on 07/19/18 09:30; Admin Dose 12.5 MG; Start 07/16/18 at 21:00 Digoxin (Digoxin) 0.25 mg DAILY@1300 PO Last administered on 07/18/18 14:00; Admin Dose 0.25 MG; Start 07/17/18 at 13:00 Albuterol/ Ipratropium (Duoneb) 3 ml Q4H RESP THERAPY HHN Last administered on 07/19/18 09:09; Admin Dose 3 ML; Start 07/16/18 at 17:00 Insulin Glargine (Lantus) 20 units DAILY@2000 SC Last administered on 07/18/18 20:59; Admin Dose 20 UNITS; Start 07/16/18 at 20:00 Insulin Aspart (Novolog Insulin Pen) 7 unit WITH MEALS SC Last administered on 07/19/18 11:41; Admin Dose 7 UNIT; Start 07/16/18 at 18:00 Insulin Aspart (Novolog Insulin Pen) NOVOLOG *MILD* ALGORITHM WITH MEALS BEDTIME SC Last administered on 07/19/18 11:41; Admin Dose 2 UNIT; Start 07/16/18 at 18:00 IV Flush (NS 3 ml) 3 ml PER PROTOCOL IV ; Start 07/16/18 at 14:30 Morphine Sulfate (morphine) 2 mg Q4H PRN IV .SEVERE PAIN 7-10; Start 07/16/18 at 14:30 Miscellaneous Information 1 ea NOTE XX ; Start 07/16/18 at 15:30 Glucose (Glutose) 15 gm Q15M PRN PO DECREASED GLUCOSE; Start 07/16/18 at 15:30 Glucose (Glutose) 22.5 gm Q15M PRN PO DECREASED GLUCOSE; Start 07/16/18 at 15:30 Dextrose (D50w Syringe) 25 ml Q15M PRN IV DECREASED GLUCOSE; Start 07/16/18 at 15:30 Dextrose (D50w Syringe) 50 ml Q15M PRN IV DECREASED GLUCOSE; Start 07/16/18 at 15:30 Glucagon (Glucagen) 1 mg Q15M PRN IM DECREASED GLUCOSE; Start 07/16/18 at 15:30 Glucose (Glutose) 15 gm Q15M PRN BUCCAL DECREASED GLUCOSE; Start 07/16/18 at 15:30 Piperacillin Sod/ Tazobactam Sod 100 ml @ 200 mls/hr Q6 IVPB Last administered on 07/19/18at 11:29; Admin Dose 200 MLS/HR; Start 07/17/18 at 02:00 Vancomycin HCl (Vanco Iv Per Pharmacy) VANCOMYCIN PER PHARMACY PER PROTOCOL XX ; Start 07/17/18 at 11:00 Vancomycin HCl 250 ml @ 125 mls/hr Q12H IVPB Last administered on 07/19/18at 01:52; Admin Dose 125 MLS/HR; Start 07/18/18 at 01:00 Assessment/Plan Hospital Course (Demo Recall) IMPRESSION 1. Acute hypoxemic respiratory failure likely secondary to CHF 2. Probable diastolic heart failure 3. Small bilateral pleural effusions 4. Obstructive sleep apnea Plan 1.. Continue diuretics 2. Supplemental O2. 3. dc planning follow up with me in office. SHEILA HUGHES MD, [facility] Jul 19, 2018 12:54
[2018-07-19] MEDS: DIGOXIN 0.25 MG TAB PO SCH (13:30)
--- NOTE | 2018-07-19 14:56 | DS ---
Date/Time of Note Date/Time of Note DATE: 07/19/18 TIME: 14:49 Discharge Summary Admission/Discharge Info Admit Date/Time Jul 16, 2018 at 12:47 Discharge Date/Time July 19, 2018 Discharge Diagnosis Acute hypoxic/hypercapneic respiratory failure 2/2 diastolic CHF/OHS -CT chest does show pulmonary edema with pleural effusions, treated with diuretics, continue home Lasix - Continue CPAP at home as well as supplemental oxygen Chronic hypoxic respiratory failure: -As above DMII; -Continue home regimen A Fib: - Continue Apixaban, digoxin SUZIE/OHS -Home CPAP BRIAN-resolved Super morbid obesity -Weight loss advised Patient Condition: Good Hospital Course Patient is a 67-year-old female with a history of morbid obesity with OHS, diabetes presents with acute on chronic hypoxic/hypercapnic respiratory failure secondary to pulmonary edema on OHS. CT chest did show pleural effusions which was treated medically with diuretics, patient was seen by pulmonology. Patient's respiratory status returned to baseline and was stable for DC, on the day of discharge patient's vitals, labs and physical exam are stable. Home Meds Reported Medications Apixaban* (Eliquis*) 5 Mg Tablet, 5 MG PO BID, TAB 05/12/18 Ergocalciferol (Vitamin D2) (VITAMIN D2) 50,000 Unit Capsule, 76704 UNIT PO WEEKLY, CAP 05/12/18 Atorvastatin Calcium* (Atorvastatin Calcium*) 20 Mg Tablet, 20 MG PO QHS, #30 TAB 05/12/18 Ibuprofen* (Ibuprofen*) 800 Mg Tablet, 800 MG PO DAILY PRN for SEVERE PAIN LEVEL 7-10, TAB 05/12/18 Digoxin* (Digitek*) 250 Mcg Tablet, 0.25 MG PO DAILY, TAB 05/12/18 Gabapentin* (Gabapentin*) 100 Mg Capsule, 200 MG PO DAILY, #180 CAP 05/12/18 Albuterol Sulfate* (Ventolin HFA*) 18 Gm Hfa.aer.ad, 2 PUFF INHALATION Q6H PRN for WHEEZING AND SOB, #1 INHALER 05/12/18 Carvedilol* (Carvedilol*) 12.5 Mg Tablet, 12.5 MG PO BID, #60 TAB 05/12/18 Potassium Chloride* (Klor-Con*) 8 Meq Tablet.sa, 8 MEQ PO BID, TAB 01/25/18 Losartan Potassium* (Losartan Potassium*) 100 Mg Tablet, 100 MG PO DAILY, TAB 01/25/18 Furosemide* (Lasix*) 40 Mg Tablet, 40 MG PO BID, TAB 01/25/18 Insulin Glargine,Hum.rec.anlog (Basaglar Kwikpen U-100) 100 Unit/1 Ml Insuln.pen , 10 UNIT SC BID, EA 01/25/18 Amlodipine Besylate* (Amlodipine Besylate*) 10 Mg Tablet, 10 MG PO DAILY, #30 TAB 01/25/18 Metformin Hcl* (Metformin Hcl*) 1,000 Mg Tablet, 1000 MG PO WITH BREAKFAST DINNE, #60 TAB 01/25/18 Glipizide* (Glipizide*) 10 Mg Tablet, 10 MG PO BID, TAB 01/25/18 Follow-up Plan FOLLOW UP WITH YOUR PCP IN 1-2 WEEKS Primary Care Provider Alexis Willoughby Time spent on discharge: > 30 minutes TOMAS MARCELO Jul 19, 2018 14:56
== END 2018-07-19 16:15 | disposition home or self-care (01) | DRG 291 ==
LOC: E/R 10:08 → 6WM 12:19 → OBSVTOIN 12:47 → SUATTDRO 13:28 → CANRESERV 16:41
PROVIDERS: ADMIT Internal Medicine; ATTEND Internal Medicine
PROC: 5A09357 Assistance with Respiratory Ventilation, Less than 24 Consecutive Hours, Continuous Positive Airway Pressure (ICD-10-PCS; principal; 2018-07-16)
DX: I11.0 Hypertensive heart disease with heart failure (principal); J96.22 Acute and chronic respiratory failure with hypercapnia; J96.21 Acute and chronic respiratory failure with hypoxia; N17.9 Acute kidney failure, unspecified; E66.2 Morbid (severe) obesity with alveolar hypoventilation; I50.33 Acute on chronic diastolic (congestive) heart failure; E11.65 Type 2 diabetes mellitus with hyperglycemia; I48.91 Unspecified atrial fibrillation; Z99.81 Dependence on supplemental oxygen; Z68.44 Body mass index [BMI] 60.0-69.9, adult
CPT/HCPCS: 36600; 71045; 71250; 80048; 80053; 80202; 81001; 81003; 82550; 82553; 82803; 82962; 83036; 83605; 83880; 84145; 84484; 85025; 85610; 85730; 93005; 93970; 94640; 94645; 94660; 97162; G0378; J1815; J1940; J2543; J3370; J7040

== ENCOUNTER 2018-08-17 09:47 | Inpatient (IN) | payer MEDICARE, OTHER ==
[~2018-08-17] VITALS: Ht 160 cm; Wt 136.0 kg
--- NOTE | 2018-08-17 10:05 | ERD ---
ER Documentation Chief Complaint Chief Complaint SHORTNESS OF BREATH HPI 67-year-old woman brought in by EMS from home for complaints of shortness of breath, she states symptoms have been going on for a few days but got worse this morning. Patient has a know from her neurosurgery research director stating that she was recently diagnosed with pulmonary hypertension as well. Patient denies fevers or chills, no cough, no dysuria, no complaints of chest pain, no vomiting or diarrhea. Patient states she has been using her medications as prescribed. ROS All systems reviewed and are negative except as per history of present illness. Medications Home Meds Reported Medications Apixaban* (Eliquis*) 5 Mg Tablet, 5 MG PO BID, TAB 05/12/18 Ergocalciferol (Vitamin D2) (VITAMIN D2) 50,000 Unit Capsule, 34690 UNIT PO WEEKLY, CAP 05/12/18 Atorvastatin Calcium* (Atorvastatin Calcium*) 20 Mg Tablet, 20 MG PO QHS, #30 TAB 05/12/18 Ibuprofen* (Ibuprofen*) 800 Mg Tablet, 800 MG PO DAILY PRN for SEVERE PAIN LEVEL 7-10, TAB 05/12/18 Digoxin* (Digitek*) 250 Mcg Tablet, 0.25 MG PO DAILY, TAB 05/12/18 Gabapentin* (Gabapentin*) 100 Mg Capsule, 200 MG PO DAILY, #180 CAP 05/12/18 Albuterol Sulfate* (Ventolin HFA*) 18 Gm Hfa.aer.ad, 2 PUFF INHALATION Q6H PRN for WHEEZING AND SOB, #1 INHALER 05/12/18 Carvedilol* (Carvedilol*) 12.5 Mg Tablet, 12.5 MG PO BID, #60 TAB 05/12/18 Potassium Chloride* (Klor-Con*) 8 Meq Tablet.sa, 8 MEQ PO BID, TAB 01/25/18 Losartan Potassium* (Losartan Potassium*) 100 Mg Tablet, 100 MG PO DAILY, TAB 01/25/18 Furosemide* (Lasix*) 40 Mg Tablet, 40 MG PO BID, TAB 01/25/18 Insulin Glargine,Hum.rec.anlog (Basaglar Kwikpen U-100) 100 Unit/1 Ml Insuln.pen, 10 UNIT SC BID, EA 01/25/18 Amlodipine Besylate* (Amlodipine Besylate*) 10 Mg Tablet, 10 MG PO DAILY, #30 TAB 01/25/18 Metformin Hcl* (Metformin Hcl*) 1,000 Mg Tablet, 1000 MG PO WITH BREAKFAST DINNE, #60 TAB 01/25/18 Glipizide* (Glipizide*) 10 Mg Tablet, 10 MG PO BID, TAB 01/25/18 Allergies Allergies: Coded Allergies: sildenafil (Verified Allergy, Intermediate, BODY RASH, DIAPHORETIC/TACHYPNEIC, 08/17/18) PMhx/Soc Obesity, hypertension, CHF, obstructive sleep apnea, atrial fibrillation, diabetes mellitus Anesthesia Reaction: No Hx Neurological Disorder: No Hx Respiratory Disorders: Yes (COPD) Hx Cardiac Disorders: Yes (CHF) Hx Psychiatric Problems: No Hx Miscellaneous Medical Probl: Yes (DMII, SUZIE, chronic hypoxemic resp failure on home O2, diastolic CHF, Afib) Hx Alcohol Use: No Hx Substance Use: No Hx Tobacco Use: No FmHx Family History: No diabetes Physical Exam Vitals Vital Signs Date Temp Pulse Resp B/P (MAP) Pulse Ox O2 O2 Flow FiO2 Time Delivery Rate 08/17/18 87 93 75 10:30 08/17/18 100.5 116 24 171/81 78 09:48 (111) Physical Exam GENERAL: Well-developed, well-nourished, dyspneic, afebrile HEENT: Moist mucous membranes, pink conjunctiva, no cervical spine tenderness or step-off deformities, no goiter, no jaundice or icterus CARDIAC: Tachycardic and regular, no murmurs rubs or gallops LUNGS: Poor breath sounds bilaterally, crackles, no wheezing or stridor ABDOMEN: Soft nontender, no guarding, no rigidity, no rebound, no psoas sign no obturator sign. SKIN: Warm and dry to touch, chronic skin changes to the lower extremities with stasis dermatitis, no lacerations or hematomas EXTREMITIES: 3+ pitting edema in the lower extremities bilaterally, calves symmetrical, distal pulses equal PSYCH: Normal affect without agitation or irritability Result Diagram: 08/17/1895708/17/1858 Results 24 hrs Laboratory Tests Test 08/17/18 09:58 White Blood Count 12.4 10^3/ul Red Blood Count 4.97 10^6/ul Hemoglobin 13.8 g/dl Hematocrit 47.8 % Mean Corpuscular Volume 96.2 fl Mean Corpuscular Hemoglobin 27.8 pg Mean Corpuscular Hemoglobin Concent 28.9 g/dl Red Cell Distribution Width 15.5 % Platelet Count 264 10^3/UL Mean Platelet Volume 10.8 fl Immature Granulocytes % 0.900 % Neutrophils % 82.9 % Lymphocytes % 12.2 % Monocytes % 3.3 % Eosinophils % 0.1 % Basophils % 0.6 % Nucleated Red Blood Cells % 0.0 /100WBC Immature Granulocytes # 0.110 10^3/ul Neutrophils # 10.2 10^3/ul Lymphocytes # 1.5 10^3/ul Monocytes # 0.4 10^3/ul Eosinophils # 0.0 10^3/ul Basophils # 0.1 10^3/ul Nucleated Red Blood Cells # 0.0 10^3/ul Sodium Level 144 mmol/L Potassium Level 5.2 mmol/L Chloride Level 101 mmol/L Carbon Dioxide Level 35 mmol/L Anion Gap 8 Blood Urea Nitrogen 21 mg/dl Creatinine 0.98 mg/dl Est Glomerular Filtrat Rate mL/min 57 mL/min Glucose Level 276 mg/dl Calcium Level 10.3 mg/dl Total Bilirubin 0.8 mg/dl Direct Bilirubin 0.00 mg/dl Indirect Bilirubin 0.8 mg/dl Aspartate Amino Transf (AST/SGOT) 18 IU/L Alanine Aminotransferase (ALT/SGPT) 20 IU/L Alkaline Phosphatase 113 IU/L Troponin I < 0.012 ng/ml Total Protein 7.8 g/dl Albumin 4.5 g/dl Globulin 3.30 g/dl Albumin/Globulin Ratio 1.36 Lipase 96 U/L Current Medications Medications Dose Sig/Meena Start Time Status Last (Trade) Ordered Route PRN Stop Time Admin Dose Reason Admin Enalaprilat 1.25 mg ONCE ONCE 08/17/18 DC (Vasotec Iv) IV 10:30 08/17/18 10:31 Furosemide 80 mg ONCE ONCE 08/17/18 DC 08/17/18 (Lasix) IV 10:30 10:32 08/17/18 10:31 Aspirin 324 mg ONCE ONCE 08/17/18 DC 08/17/18 (Aspirin) PO 10:30 10:31 08/17/18 10:31 Procedures/MDM IV line was established patient was placed on cardiac cath lab radiology technologist rhythm strip revealed a sinus rhythm at about 90 bpm with upright P and T waves. Patient was afebrile EKG was performed, read by me revealed an atrial fibrillation rate controlled at 92 bpm, normal axis, low amplitude, narrow QRS complex, no concerning ST elevations or depressions noted 1 view chest x-ray performed, read by me revealed cardiomegaly and bilateral pulmonary vascular congestion, no acute infiltrates, no pneumothorax I administered furosemide 80 mg IV, enalapril 1.25 mg IV, aspirin 324 mg p.o. and placed the patient on BiPAP therapy for continued dyspnea and tachypnea. CBC was unremarkable, electrolytes revealed mild hyperkalemia 5.2 and dehydration with a BUN/creatinine of 21/1, liver function tests unremarkable, troponin negative Critical Care: Time: 45 minutes, this was time separate from other billable procedures. Treatments/Evaluations: Close monitoring and treatment of unstable vital signs, cardiorespiratory, and neurologic status, while maintaining tight balance of fluid, respiratory, and cardiac interventions. Patient admitted to telemetry setting for continued diuresis and medical management, cardiology consultation Departure Diagnosis: Primary Impression: Acute decompensated heart failure Additional Impressions: Hypertension Hypertension type: essential hypertension Qualified Codes: I10 - Essential (primary) hypertension Pulmonary hypertension Condition: STEVE Sheffield MD August 17, 2018 10:05
[2018-08-17] MEDS ORDERED: ENALAPRILAT 1.25 MG INJ IV ONE (10:30)
[2018-08-17] MEDS ORDERED: FUROSEMIDE 40 MG INJ IV ONE (10:30)
[2018-08-17] MEDS ORDERED: ASPIRIN 81 MG TAB PO ONE (10:30)
[2018-08-17] MEDS ORDERED: ONDANSETRON 4 MG INJ IV PRN (15:00)
[2018-08-17] MEDS ORDERED: NACL 0.9% 3 ML SYG IV SCH (15:00)
[2018-08-17] MEDS ORDERED: HYDROCODONE/APAP (5/325) TAB PO PRN (15:00)
[2018-08-17] MEDS ORDERED: IPRATROPIUM (NEB) 0.5 MG/2.5 ML AMP HHN PRN (15:00)
[2018-08-17] MEDS ORDERED: ACETAMINOPHEN 325 MG TAB PO PRN (15:00)
--- NOTE | 2018-08-17 15:08 | HP ---
Date/Time of Note Date/Time of Note DATE: 08/17/18 TIME: 14:55 Assessment/Plan VTE Prophylaxis Pharmacological prophylaxis: apixaban Lines/Catheters IV Catheter Type (from Nrs): Saline Lock Assessment/Plan Hospital Course SUBJECTIVE: Patient sitting up in chair, on BiPAP. Complaining of difficulty breathing. OBJECTIVE: Vital signs-see below PHYSICAL EXAM: Constitutional: Obese female, in moderate respiratory distress. HEENT: Head atraumatic and normocephalic. Eyes: Extraocular muscles intact. Anicteric sclerae. Pupils equal bilaterally, reactive to light. NECK: Supple without lymph node. CHEST: Expiratory wheezes/rails bilaterally, diminished bibasilar. HEART: S1, S2. Regular rate and rhythm. ABDOMEN: Soft/non tender with no rebound tenderness. Bowel sounds were present. EXTREMITIES: Chronic pedal edema/LE edema bilaterally. NEUROLOGIC: Alert and oriented x3. No focal deficit. No sensory deficit. PSYCHOSOCIAL: No signs of depression. INTEGUMENTARY: No open wounds. ASSESSMENT AND PLAN:67 yo morbidly obese F w/CHF/SUZIE/o2 dep resp fx/home CPAP use, co2 retention, pulm.HTN w/viagra allergy,dm2,hld here w/worsening SOBX1 wk duration.... Acute on chronic hypoxemic/hypercapnic respiratory failure multifactorial with SUZIE exacerbation/pulmonary hypertension/CHF exacerbation -BiPAP, RT to titrate oxygen for SPO2 greater than 92% -[id number] breathing treatment -Pulmonary consult -CTA Chest to r/o PE in light of chronic pulm HTN -Hold gabapentin Acute on chronic decompensated diastolic congestive heart failure exacerbation -Resume beta-blockers. Hold ARB in light of hyperkalemia -IV diuresis -Cardiology consultation-BNP and Repeat echo -ACS work-up with serial troponin Questionable pneumonia -We will treat empirically on Levaquin Acute hyperkalemia likely secondary to ARB -Hold ARB -Patient was given IV Lasix/bronchodilators in ER, as such will not treat it further and will repeat potassium level and treat accordingly. Chronic atrial fibrillation -Rate controlled -Resume Xarelto/beta-blockers/digoxin Obstructive sleep apnea with CO2 retention -Obtain ABG -Pulmonary follow-up -BiPAP/CPAP at night Pulmonary hypertension -Patient has allergy to Viagra and she is currently not on treatment for pulmonary hypertension -TTE to reassess PAP -Monitor and follow-up pulmonary recommendations DM2 -Hold oral agents -Accu-Cheks/basal/bolus insulin -A1C Dyslipidemia -Resume statin Essential hypertension -Continue beta-blockers. Hold losartan in light of hyperkalemia and amlodipine in light of pedal edema -Add PO hydralazine Chronic bilateral lower extremity Lymphedema -This has not changed in appearance per patient. Continue elevating extremities. Morbid obesity with a BMI 53.1 -Advised on weight reduction/diet control DVT prophylaxis: Eliquis PUD prophylaxis: Pepcid Rest of the management depend on hospital course. Approximately 60 m spent on this history and physical. Patient was seen in collaboration with Dr. Maya. Result Diagram: 08/17/1858 08/17/18 0958 Results 24hrs Laboratory Tests Test 08/17/18 09:58 08/17/18 10:01 08/17/18 13:24 White Blood Count 12.4 #H Red Blood Count 4.97 Hemoglobin 13.8 Hematocrit 47.8 H Mean Corpuscular Volume 96.2 Mean Corpuscular Hemoglobin 27.8 L Mean Corpuscular Hemoglobin Concent 28.9 L Red Cell Distribution Width 15.5 H Platelet Count 264 Mean Platelet Volume 10.8 H Immature Granulocytes % 0.900 H Neutrophils % 82.9 H Lymphocytes % 12.2 L Monocytes % 3.3 Eosinophils % 0.1 Basophils % 0.6 Nucleated Red Blood Cells % 0.0 Immature Granulocytes # 0.110 H Neutrophils # 10.2 H Lymphocytes # 1.5 Monocytes # 0.4 Eosinophils # 0.0 Basophils # 0.1 Nucleated Red Blood Cells # 0.0 Sodium Level 144 Potassium Level 5.2 H Chloride Level 101 Carbon Dioxide Level 35 H Anion Gap 8 Blood Urea Nitrogen 21 H Creatinine 0.98 Est Glomerular Filtrat Rate mL/min 57 L Glucose Level 276 H Calcium Level 10.3 H Total Bilirubin 0.8 Direct Bilirubin 0.00 Indirect Bilirubin 0.8 Aspartate Amino Transf (AST/SGOT) 18 Alanine Aminotransferase (ALT/SGPT) 20 Alkaline Phosphatase 113 Troponin I < 0.012 B-Type Natriuretic Peptide 2080 H Total Protein 7.8 Albumin 4.5 Globulin 3.30 H Albumin/Globulin Ratio 1.36 Lipase 96 POC Venous Lactate 1.4 Urine Color STRAW Urine Clarity CLEAR Urine pH 5.0 Urine Specific [place] 1.007 Urine Ketones NEGATIVE Urine Nitrite NEGATIVE Urine Bilirubin NEGATIVE Urine Urobilinogen NEGATIVE Urine Leukocyte Esterase NEGATIVE Urine Hemoglobin NEGATIVE Urine Glucose 3+ H Urine Total Protein NEGATIVE HPI/ROS Admit Date/Time Admit Date/Time Hx of Present Illness This is a 67-year old obese female with a history of oxygen dependent respiratory failure, CO2 retention, pulmonary hypertension, sleep apnea, home CPAP/oxygen use, congestive heart failure, insulin-dependent diabetes, hyperlipidemia, atrial fibrillation/on anticoagulation, brought into the emergency room with 1 week duration of worsening shortness of breath. Patient denied cough, fever, chills, chest pain, palpitation, nausea, vomiting, headache, dizziness, worsening edema on lower extremities or other constitutional symptoms. In the emergency room, initial labs showed white count 12,400, potassium 5.2, glucose 276. Chest x-ray showed moderate bilateral pleural effusion, pulmonary edema. Patient was given 60 mg Lasix IV in the emergency room. She was placed on BiPAP and was given breathing treatments as well. Lead EKG showed controlled atrial fibrillation. ROS A 12 point review of system was assessed and is negative other than what is mentioned in the HPI PMH/Family/Social Past Medical History See HPI Medications Current Medications IV Flush (NS 3 ml) 3 ml PER PROTOCOL IV ; Start 08/17/18 at 15:00; Status UNV Ondansetron HCl (Zofran Inj) 4 mg Q6H PRN IV NAUSEA/VOMITING; Start 08/17/18 at 15:00; Status UNV Acetaminophen (Tylenol Tab) 650 mg Q6H PRN PO .PAIN 1-3 OR TEMP; Start 08/17/18 at 15:00; Status UNV Acetaminophen/ Hydrocodone Bitart ([place] (5/325)) 1 tab Q6H PRN PO .MOD PAIN 4- 6; Start 08/17/18 at 15:00; Status UNV Famotidine (Pepcid) 20 mg Q12 PO ; Start 08/17/18 at 21:00; Status UNV Enoxaparin Sodium (Lovenox) 40 mg DAILY SC ; Start 08/18/18 at 09:00; Status U NV Miscellaneous Information (* Miscellaneous Pharmacy Order) Discontinue current oral sulfonylur... ONCE ONCE XX ; Start 08/17/18 at 15:00; Stop 08/17/18 at 15:01; Status UNV Diagnostic Test (Pha) (Accu-Chek) 1 ea XX ; Start 08/18/18 at 02:00; Status UNV Insulin Glargine (Lantus) 14 units DAILY@2000 SC ; Start 08/17/18 at 20:00; Status UNV Miscellaneous Information (* Miscellaneous Pharmacy Order) HYPOGLYCEMIA PROTOCOL w... ONCE ONCE XX ; Start 08/17/18 at 15:00; Stop 08/17/18 at 15:01; Status UNV Insulin Aspart (Novolog Insulin Pen) NOVOLOG *MILD* ALGORITHM WITH MEALS BEDTIME SC ; Start 08/17/18 at 18:00; Status UNV Miscellaneous Information (* Miscellaneous Pharmacy Order) Discontinue all previ... ONCE ONCE XX ; Start 08/17/18 at 15:00; Stop 08/17/18 at 15:01; Status UNV Insulin Aspart (Novolog Insulin Pen) 5 unit WITH MEALS SC ; Start 08/17/18 at 18:00; Status UNV Apixaban (Eliquis) 5 mg BID PO ; Start 08/17/18 at 21:00; Status UNV Atorvastatin Calcium (Lipitor) 20 mg QHS PO ; Start 08/17/18 at 21:00; Status UNV Carvedilol (Coreg) 12.5 mg BID PO ; Start 08/17/18 at 21:00; Status UNV Digoxin (Digoxin) 0.25 mg DAILY PO ; Start 08/18/18 at 09:00; Status UNV Furosemide (Lasix) 40 mg BID DIURETICS IV ; Start 08/17/18 at 18:00; Status UNV Levalbuterol (Xopenex Neb) 1.25 mg Q4H RESP THERAPY HHN ; Start 08/17/18 at 17:00; Status UNV Ipratropium [place] (Atrovent 0.02% (Neb)) 0.5 mg Q4H RESP THERAPY PRN HHN SHORTNESS OF BREATH; Start 08/17/18 at 15:00; Status UNV Coded Allergies: sildenafil (Verified Allergy, Intermediate, BODY RASH, DIAPHORETIC/TACHYPNEIC, 08/17/18) Past Surgical History Hysterectomy Past Surgical Hx: no surgical history Family History Significant Family History: no pertinent family hx Social History Denied history of alcohol, smoking or illicit drug use Smoking Status: Current every day smoker Exam/Review of Systems Vital Signs Vitals Vital Signs Date Temp Pulse Resp B/P (MAP) Pulse Ox O2 O2 Flow FiO2 Time Delivery Rate 08/17/18 98.1 84 20 147/83 98 BIPAP 12:56 (104) 08/17/18 75 10:30 KIA DELEON NP August 17, 2018 15:06
[2018-08-17 15:30] VITALS: BP 139/74; PULSE 89; RESP 18
[2018-08-17] MEDS ORDERED: IOHEXOL 100 ML ONE (16:08)
[2018-08-17] MEDS ORDERED: SOD CHLORIDE 0.9% 100 ML ONE (16:08)
[2018-08-17] MEDS: LEVOFLOXACIN 500MG/D5W (PMX) 100 ML IVPB SCH (16:33)
[2018-08-17] MEDS ORDERED: GLUCOSE GEL 15 GRAM TUBE BUCCAL PRN (17:30)
[2018-08-17] MEDS ORDERED: DEXTROSE 50% 50 ML SYRINGE IV PRN ×2 (17:30)
[2018-08-17] MEDS ORDERED: GLUCOSE GEL 15 GRAM TUBE PO PRN ×2 (17:30)
[2018-08-17] MEDS ORDERED: GLUCAGON 1 MG INJ IM PRN (17:30)
[2018-08-17] MEDS: INSULIN ASPART [NOVOLOG] 3 ML PEN SC SCH ×3 (18:00→20:16)
--- NOTE | 2018-08-17 18:13 | CONS ---
Assessment/Plan Cardiology NYHA: III Heart Failure Type: Acute on Chronic Heart Failure Type: Diastolic Assessment/Plan Hospital Course (Demo Recall) Acute decompensated diastolic congestive heart failure Preserved ejection fraction Atrial fibrillation Hypertension Diabetes Morbid obesity Obstructive sleep apnea Likely obesity hypoventilation syndrome Patient with improvement in symptoms after diuresis and is currently off BiPAP Serial cardiac enzymes remain negative Would continue IV diuretics and titrate his renal function and blood pressure permits Patient atrial fibrillation currently heart rate is controlled. Continue beta- viola as tolerated, continue anticoagulation Pulmonary evaluation Consultation Date/Type/Reason Admit Date/Time Type of Consult Cardiology Reason for Consultation Shortness of breath Date/Time of Note DATE: 08/17/18 TIME: 18:08 Hx of Present Illness This is a 67-year-old female with past medical history of diastolic congestive heart failure, obesity hypoventilation syndrome, atrial fibrillation who presents with progressive worsening shortness of breath of the past few weeks. Symptoms are worse with exertion. Patient denies any chest pain. Patient with occasional chills. Denies any fevers. She thinks she is compliant with medications, unclear compliance with low-sodium diet. She is morbidly obese. Because of worsening symptoms, she came to the emergency room. Patient was initially on BiPAP but currently off. She is feeling better after therapy in the emergency room. 12 point review of systems was performed with all pertinent positives and negatives mentioned above and all else is negative Past Medical History Medical History: congestive heart failure, diabetes, hypertension, renal disease Home Meds Reported Medications Apixaban* (Eliquis*) 5 Mg Tablet, 5 MG PO BID, TAB 05/12/18 Ergocalciferol (Vitamin D2) (VITAMIN D2) 50,000 Unit Capsule, 35421 UNIT PO WEEKLY, CAP 05/12/18 Atorvastatin Calcium* (Atorvastatin Calcium*) 20 Mg Tablet, 20 MG PO QHS, #30 TAB 05/12/18 Ibuprofen* (Ibuprofen*) 800 Mg Tablet, 800 MG PO DAILY PRN for SEVERE PAIN LEVEL 7-10, TAB 05/12/18 Digoxin* (Digitek*) 250 Mcg Tablet, 0.25 MG PO DAILY, TAB 05/12/18 Gabapentin* (Gabapentin*) 100 Mg Capsule, 200 MG PO DAILY, #180 CAP 05/12/18 Albuterol Sulfate* (Ventolin HFA*) 18 Gm Hfa.aer.ad, 2 PUFF INHALATION Q6H PRN for WHEEZING AND SOB, #1 INHALER 05/12/18 Carvedilol* (Carvedilol*) 12.5 Mg Tablet, 12.5 MG PO BID, #60 TAB 05/12/18 Potassium Chloride* (Klor-Con*) 8 Meq Tablet.sa, 8 MEQ PO BID, TAB 01/25/18 Losartan Potassium* (Losartan Potassium*) 100 Mg Tablet, 100 MG PO DAILY, TAB 01/25/18 Furosemide* (Lasix*) 40 Mg Tablet, 40 MG PO BID, TAB 01/25/18 Insulin Glargine,Hum.rec.anlog (Basaglar Kwikpen U-100) 100 Unit/1 Ml Insuln.pen, 10 UNIT SC BID, EA 01/25/18 Amlodipine Besylate* (Amlodipine Besylate*) 10 Mg Tablet, 10 MG PO DAILY, #30 TAB 01/25/18 Metformin Hcl* (Metformin Hcl*) 1,000 Mg Tablet, 1000 MG PO WITH BREAKFAST DINNE, #60 TAB 01/25/18 Glipizide* (Glipizide*) 10 Mg Tablet, 10 MG PO BID, TAB 01/25/18 Medications Current Medications IV Flush (NS 3 ml) 3 ml PER PROTOCOL IV ; Start 08/17/18 at 15:00 Ondansetron HCl (Zofran Inj) 4 mg Q6H PRN IV NAUSEA/VOMITING; Start 08/17/18 at 15:00 Acetaminophen (Tylenol Tab) 650 mg Q6H PRN PO .PAIN 1-3 OR TEMP; Start 08/17/18 at 15:00 Acetaminophen/ Hydrocodone Bitart ([place] (5/325)) 1 tab Q6H PRN PO .MOD PAIN 4- 6; Start 08/17/18 at 15:00 Famotidine (Pepcid) 20 mg Q12 PO ; Start 08/17/18 at 21:00 Diagnostic Test (Pha) (Accu-Chek) 1 ea 02 XX ; Start 08/18/18 at 02:00 Insulin Glargine (Lantus) 14 units DAILY@2000 SC ; Start 08/17/18 at 20:00 Insulin Aspart (Novolog Insulin Pen) NOVOLOG *MILD* ALGORITHM WITH MEALS BEDTIME SC ; Start 08/17/18 at 18:00 Insulin Aspart (Novolog Insulin Pen) 5 unit WITH MEALS SC ; Start 08/17/18 at 18:00 Apixaban (Eliquis) 5 mg BID PO ; Start 08/17/18 at 21:00 Atorvastatin Calcium (Lipitor) 20 mg QHS PO ; Start 08/17/18 at 21:00 Carvedilol (Coreg) 12.5 mg BID PO ; Start 08/17/18 at 21:00 Digoxin (Digoxin) 0.25 mg DAILY PO ; Start 08/18/18 at 09:00 Furosemide (Lasix) 40 mg BID DIURETICS IV ; Start 08/17/18 at 18:00 Levalbuterol (Xopenex Neb) 1.25 mg Q4H RESP THERAPY HHN ; Start 08/17/18 at 17:00 Ipratropium [place] (Atrovent 0.02% (Neb)) 0.5 mg Q4H RESP THERAPY PRN HHN SHORTNESS OF BREATH; Start 08/17/18 at 15:00 Hydralazine HCl (Apresoline) 25 mg TID PO ; Start 08/17/18 at 21:00 Levofloxacin/ Dextrose 100 ml @ 100 mls/hr Q24H IVPB Last administered on 08/17/18at 16:33; Admin Dose 100 MLS/HR; Start 08/17/18 at 15:30 Miscellaneous Information 1 ea NOTE XX ; Start 08/17/18 at 17:30 Glucose (Glutose) 15 gm Q15M PRN PO DECREASED GLUCOSE; Start 08/17/18 at 17:30 Glucose (Glutose) 22.5 gm Q15M PRN PO DECREASED GLUCOSE; Start 08/17/18 at 17:30 Dextrose (D50w Syringe) 25 ml Q15M PRN IV DECREASED GLUCOSE; Start 08/17/18 at 17:30 Dextrose (D50w Syringe) 50 ml Q15M PRN IV DECREASED GLUCOSE; Start 08/17/18 at 17:30 Glucagon (Glucagen) 1 mg Q15M PRN IM DECREASED GLUCOSE; Start 08/17/18 at 17:30 Glucose (Glutose) 15 gm Q15M PRN BUCCAL DECREASED GLUCOSE; Start 08/17/18 at 17:30 Allergies: Coded Allergies: sildenafil (Verified Allergy, Intermediate, BODY RASH, D IAPHORETIC/TACHYPNEIC, 08/17/18) Past Surgical History Past Surgical Hx: no surgical history Family History Significant Family History: no pertinent family hx Social History Smoking Status: Current every day smoker Exam/Review of Systems Vital Signs Vitals Vital Signs Date Temp Pulse Resp B/P (MAP) Pulse Ox O2 O2 Flow FiO2 Time Delivery Rate 08/17/18 82 32 147/82 88 Nasal 4.0 16:42 (103) Cannula 08/17/18 98.1 12:56 08/17/18 40 12:45 Exam Constitutional: alert, oriented (Sitting in chair, no apparent distress, morbidly obese) Head: normocephalic Respiratory: other (Coarse breath sounds bilaterally, scattered crackles) Cardiovascular: irregular rhythm, systolic murmur (S1-S2 heard) Gastrointestinal: soft, non-tender, bowel sounds Extremities: edema Labs Result Diagram: 08/17/18 0958 08/17/18 1516 Results 24hrs Laboratory Tests Test 08/17/18 09:58 08/17/18 10:01 08/17/18 13:24 08/17/18 14:43 White Blood Count 12.4 #H Red Blood Count 4.97 Hemoglobin 13.8 Hematocrit 47.8 H Mean Corpuscular 96.2 Volume Mean Corpuscular 27.8 L Hemoglobin Mean Corpuscular 28.9 L Hemoglobin Concen t Red Cell 15.5 H Distribution Width Platelet Count 264 Mean Platelet 10.8 H Volume Immature 0.900 H Granulocytes % Neutrophils % 82.9 H Lymphocytes % 12.2 L Monocytes % 3.3 Eosinophils % 0.1 Basophils % 0.6 Nucleated Red 0.0 Blood Cells % Immature 0.110 H Granulocytes # Neutrophils # 10.2 H Lymphocytes # 1.5 Monocytes # 0.4 Eosinophils # 0.0 Basophils # 0.1 Nucleated Red 0.0 Blood Cells # Sodium Level 144 Potassium Level 5.2 H Chloride Level 101 Carbon Dioxide 35 H Level Anion Gap 8 Blood Urea 21 H Nitrogen Creatinine 0.98 Est Glomerular 57 L Filtrat Rate mL/min Glucose Level 276 H Calcium Level 10.3 H Total Bilirubin 0.8 Direct Bilirubin 0.00 Indirect 0.8 Bilirubin Aspartate Amino 18 Transf (AST/SGOT) Alanine 20 Aminotransferase (ALT/SGPT) Alkaline 113 Phosphatase Troponin I < 0.012 B-Type 2080 H Natriuretic Peptide Total Protein 7.8 Albumin 4.5 Globulin 3.30 H Albumin/Globulin 1.36 Ratio Lipase 96 POC Venous 1.4 Lactate Urine Color STRAW Urine Clarity CLEAR Urine pH 5.0 Urine Specific 1.007 [place] Urine Ketones NEGATIVE Urine Nitrite NEGATIVE Urine Bilirubin NEGATIVE Urine NEGATIVE Urobilinogen Urine Leukocyte NEGATIVE Esterase Urine Hemoglobin NEGATIVE Urine Glucose 3+ H Urine Total NEGATIVE Protein Blood Gas Blood arterial Specimen Source Arterial Blood 08/17/2018 3:56:2 Date Drawn 9 PM Arterial Blood pH 7.312 L (Temp corrected) Arterial Blood 75.9 H pCO2 (Temp correct) Arterial Blood 63.6 L pO2 (Temp corrected) Arterial Blood 37.5 H HCO3 Arterial Blood 8.2 H Base Excess Arterial Blood 90.4 L Oxygen Saturation Ramy Test ACCEPTAB Arterial Blood Right Radial Gas Puncture Site Arterial 1.0 Blood Carboxyhemo globin Arterial Blood 0.2 Methemoglobin Blood Gas A-a O2 46.5 H Differential Oxyhemoglobin 89.3 L Percent Blood Gas 37.0 Temperature Blood Gas NASAL CANNULA Modality FiO2 28.0 Blood Gas O Christiano Critical Value Read Back Blood Gas abaires Notified Whom Blood Gas 08/17/2018 4:03:4 Notified Time 1 PM Test 08/17/18 15:16 Potassium Level 4.7 Creatine Kinase < 20 L Creatine Kinase Index Creatinine Kinase 0.22 MB (Mass) Troponin I < 0.012 B-Type 1890 H Natriuretic Peptide Imaging Imaging Atrial fibrillation at 92 bpm, QRS 64 ms, poor R wave progression, nonspecific ST abnormalities Medications Medications Current Medications IV Flush (NS 3 ml) 3 ml PER PROTOCOL IV ; Start 08/17/18 at 15:00 Ondansetron HCl (Zofran Inj) 4 mg Q6H PRN IV NAUSEA/VOMITING; Start 08/17/18 at 15:00 Acetaminophen (Tylenol Tab) 650 mg Q6H PRN PO .PAIN 1-3 OR TEMP; Start 08/17/18 at 15:00 Acetaminophen/ Hydrocodone Bitart ([place] (5/325)) 1 tab Q6H PRN PO .MOD PAIN 4- 6; Start 08/17/18 at 15:00 Famotidine (Pepcid) 20 mg Q12 PO ; Start 08/17/18 at 21:00 Diagnostic Test (Pha) (Accu-Chek) 1 ea 02 XX ; Start 08/18/18 at 02:00 Insulin Glargine (Lantus) 14 units DAILY@2000 SC ; Start 08/17/18 at 20:00 Insulin Aspart (Novolog Insulin Pen) NOVOLOG *MILD* ALGORITHM WITH MEALS BEDTI ME SC ; Start 08/17/18 at 18:00 Insulin Aspart (Novolog Insulin Pen) 5 unit WITH MEALS SC ; Start 08/17/18 at 18:00 Apixaban (Eliquis) 5 mg BID PO ; Start 08/17/18 at 21:00 Atorvastatin Calcium (Lipitor) 20 mg QHS PO ; Start 08/17/18 at 21:00 Carvedilol (Coreg) 12.5 mg BID PO ; Start 08/17/18 at 21:00 Digoxin (Digoxin) 0.25 mg DAILY PO ; Start 08/18/18 at 09:00 Furosemide (Lasix) 40 mg BID DIURETICS IV ; Start 08/17/18 at 18:00 Levalbuterol (Xopenex Neb) 1.25 mg Q4H RESP THERAPY HHN ; Start 08/17/18 at 17:00 Ipratropium [place] (Atrovent 0.02% (Neb)) 0.5 mg Q4H RESP THERAPY PRN HHN SHORTNESS OF BREATH; Start 08/17/18 at 15:00 Hydralazine HCl (Apresoline) 25 mg TID PO ; Start 08/17/18 at 21:00 Levofloxacin/ Dextrose 100 ml @ 100 mls/hr Q24H IVPB Last administered on 08/17/18at 16:33; Admin Dose 100 MLS/HR; Start 08/17/18 at 15:30 Miscellaneous Information 1 ea NOTE XX ; Start 08/17/18 at 17:30 Glucose (Glutose) 15 gm Q15M PRN PO DECREASED GLUCOSE; Start 08/17/18 at 17:30 Glucose (Glutose) 22.5 gm Q15M PRN PO DECREASED GLUCOSE; Start 08/17/18 at 17:30 Dextrose (D50w Syringe) 25 ml Q15M PRN IV DECREASED GLUCOSE; Start 08/17/18 at 17:30 Dextrose (D50w Syringe) 50 ml Q15M PRN IV DECREASED GLUCOSE; Start 08/17/18 at 17:30 Glucagon (Glucagen) 1 mg Q15M PRN IM DECREASED GLUCOSE; Start 08/17/18 at 17:30 Glucose (Glutose) 15 gm Q15M PRN BUCCAL DECREASED GLUCOSE; Start 08/17/18 at 17:30 Watson Mckay DO August 17, 2018 18:13
[2018-08-17] MEDS: FUROSEMIDE 40 MG INJ IV SCH (18:19)
[2018-08-17 20:00] VITALS: Ht 160 cm; Wt 136.0 kg
[2018-08-17] MEDS ORDERED: INSULIN GLARGINE [LANTus] (100 UNITS/ML) SYG SC SCH (20:00)
[2018-08-17] MEDS: ATORVASTATIN 20 MG TAB PO SCH (20:15)
[2018-08-17] MEDS: LEVALBUTEROL (NEB) 1.25 MG/0.5 ML AMP HHN SCH (20:15)
[2018-08-17] MEDS: APIXABAN 5 MG TABLET PO SCH (20:15)
[2018-08-17] MEDS: FAMOTIDINE 20 MG TAB PO SCH (20:16)
[2018-08-17 20:17] VITALS: PULSE 71
[2018-08-17 20:29] VITALS: BP 135/71; PULSE 77; RESP 16
[2018-08-17 23:17] VITALS: PULSE 69
[2018-08-18] VITALS (14 sets, daily range): BP systolic 114–136; BP diastolic 57–84; PULSE 64–83; RESP 19–22
[2018-08-18] MEDS: LEVALBUTEROL (NEB) 1.25 MG/0.5 ML AMP HHN SCH ×6 (00:18→21:13)
[2018-08-18] MEDS: ACCU-CHEK XX SCH (02:00)
[2018-08-18] MEDS: FUROSEMIDE 40 MG INJ IV SCH (06:08)
[2018-08-18] MEDS: INSULIN ASPART [NOVOLOG] 3 ML PEN SC SCH ×7 (08:14→20:14)
[2018-08-18] MEDS: FAMOTIDINE 20 MG TAB PO SCH ×2 (08:23→20:13)
[2018-08-18] MEDS: DIGOXIN 0.25 MG TAB PO SCH (08:23)
[2018-08-18] MEDS: APIXABAN 5 MG TABLET PO SCH ×2 (08:23→20:14)
[2018-08-18] MEDS ORDERED: ENOXAPARIN 40 MG/0.4 ML SYG SC SCH (09:00)
--- NOTE | 2018-08-18 09:42 | CONS ---
Assessment/Plan Assessment/Plan Assessment/Plan (Daily) A/R: 1- chf exacrbation 2. chronic type II resp Failure 3. DM and HTN 4. Chronic A fib 5. Mild to moderated right pleural effusion continue current treatment, BiPAP, f/u cxr 48 hours. Consultation Date/Type/Reason Admit Date/Time Date of Consultation: August 18, 2018 Type of Consult Pulmonary Patient is a 67-year-old lady who came into the hospital with shortness of breath. Upon evaluation chest x-ray was done which is showing changes consistent with CHF. Patient subsequently had a CT of the chest done which is showing mild to moderate right pleural effusion with changes of CHF as well. Since admission patient is feeling significant improvement in her symptoms. Denies any chest pain, coughing, wheezing, any sputum production. By the time I saw her, patient appeared very comfortable and was sitting in a chair by bedside. Past medical history; 1. CHF. 2. Diabetes. 3. Chronic atrial fibrillation. 4. Likely chronic type II respiratory failure due to underlying sleep apnea. Medications; reviewed. Allergies; as outlined above. Social history; no history of any smoking. Family history; patient does have a supportive family. Occupational history; patient has been a housewife. Review of systems; denies any headache, visual changes, seizures, postnasal drip. Any heartburn. Any chest pain, angina, wheezing, cough. Complains of chronic orthopnea. Denies any weight gain. Denies any abdominal pain, nausea vomiting. Any edema. Complains of chronic dyspnea on exertion. Denies any melena or hematochezia. Does complain of daytime sleepiness. GE: no distress Date/Time of Note DATE: 08/18/18 TIME: 09:35 Past Medical History Home Meds Reported Medications Apixaban* (Eliquis*) 5 Mg Tablet, 5 MG PO BID, TAB 05/12/18 Ergocalciferol (Vitamin D2) (VITAMIN D2) 50,000 Unit Capsule, 36139 UNIT PO WEEKLY, CAP 05/12/18 Atorvastatin Calcium* (Atorvastatin Calcium*) 20 Mg Tablet, 20 MG PO QHS, #30 TAB 05/12/18 Ibuprofen* (Ibuprofen*) 800 Mg Tablet, 800 MG PO DAILY PRN for SEVERE PAIN LEVEL 7-10, TAB 05/12/18 Digoxin* (Digitek*) 250 Mcg Tablet, 0.25 MG PO DAILY, TAB 05/12/18 Gabapentin* (Gabapentin*) 100 Mg Capsule, 200 MG PO DAILY, #180 CAP 05/12/18 Albuterol Sulfate* (Ventolin HFA*) 18 Gm Hfa.aer.ad, 2 PUFF INHALATION Q6H PRN for WHEEZING AND SOB, #1 INHALER 05/12/18 Carvedilol* (Carvedilol*) 12.5 Mg Tablet, 12.5 MG PO BID, #60 TAB 05/12/18 Potassium Chloride* (Klor-Con*) 8 Meq Tablet.sa, 8 MEQ PO BID, TAB 01/25/18 Losartan Potassium* (Losartan Potassium*) 100 Mg Tablet, 100 MG PO DAILY, TAB 01/25/18 Furosemide* (Lasix*) 40 Mg Tablet, 40 MG PO BID, TAB 01/25/18 Insulin Glargine,Hum.rec.anlog (Basaglar Kwikpen U-100) 100 Unit/1 Ml Insuln.pen, 10 UNIT SC BID, EA 01/25/18 Amlodipine Besylate* (Amlodipine Besylate*) 10 Mg Tablet, 10 MG PO DAILY, #30 TAB 01/25/18 Metformin Hcl* (Metformin Hcl*) 1,000 Mg Tablet, 1000 MG PO WITH BREAKFAST DINNE, #60 TAB 01/25/18 Glipizide* (Glipizide*) 10 Mg Tablet, 10 MG PO BID, TAB 01/25/18 Medications Current Medications IV Flush (NS 3 ml) 3 ml PER PROTOCOL IV ; Start 08/17/18 at 15:00 Ondansetron HCl (Zofran Inj) 4 mg Q6H PRN IV NAUSEA/VOMITING; Start 08/17/18 at 15:00 Acetaminophen (Tylenol Tab) 650 mg Q6H PRN PO .PAIN 1-3 OR TEMP; Start 08/17/18 at 15:00 Acetaminophen/ Hydrocodone Bitart ([place] (5/325)) 1 tab Q6H PRN PO .MOD PAIN 4- 6; Start 08/17/18 at 15:00 Famotidine (Pepcid) 20 mg Q12 PO Last administered on 08/18/18at 08:23; Admin Dose 20 MG; Start 08/17/18 at 21:00 Diagnostic Test (Pha) (Accu-Chek) 1 ea 02 XX ; Start 08/18/18 at 02:00 Insulin Glargine (Lantus) 14 units DAILY@2000 SC Last administered on 08/17/18 20:25; Admin Dose 14 UNITS; Start 08/17/18 at 20:00 Insulin Aspart (Novolog Insulin Pen) NOVOLOG *MILD* ALGORITHM WITH MEALS BEDTIME SC Last administered on 08/18/18 08:14; Admin Dose 3 UNIT; Start 08/17/18 at 18:00 Insulin Aspart (Novolog Insulin Pen) 5 unit WITH MEALS SC Last administered on 08/18/18 08:14; Admin Dose 5 UNIT; Start 08/17/18 at 18:00 Apixaban (Eliquis) 5 mg BID PO Last administered on 08/18/18 08:23; Admin Dose 5 MG; Start 08/17/18 at 21:00 Atorvastatin Calcium (Lipitor) 20 mg QHS PO Last administered on 08/17/18 20:15; Admin Dose 20 MG; Start 08/17/18 at 21:00 Carvedilol (Coreg) 12.5 mg BID PO Last administered on 08/18/18 08:23; Admin Dose 12.5 MG; Start 08/17/18 at 21:00 Digoxin (Digoxin) 0.25 mg DAILY PO Last administered on 08/18/18 08:23; Admin Dose 0.25 MG; Start 08/18/18 at 09:00 Furosemide (Lasix) 40 mg BID DIURETICS IV Last administered on 08/18/18 06:08 ; Admin Dose 40 MG; Start 08/17/18 at 18:00 Levalbuterol (Xopenex Neb) 1.25 mg Q4H RESP THERAPY HHN Last administered on 08/18/18 08:51; Admin Dose 1.25 MG; Start 08/17/18 at 17:00 Ipratropium [place] (Atrovent 0.02% (Neb)) 0.5 mg Q4H RESP THERAPY PRN HHN SHORTNESS OF BREATH; Start 08/17/18 at 15:00 Hydralazine HCl (Apresoline) 25 mg TID PO Last administered on 08/18/18 08:22; Admin Dose 25 MG; Start 08/17/18 at 21:00 Levofloxacin/ Dextrose 100 ml @ 100 mls/hr Q24H IVPB Last administered on 08/17/18at 16:33; Admin Dose 100 MLS/HR; Start 08/17/18 at 15:30 Miscellaneous Information 1 ea NOTE XX ; Start 08/17/18 at 17:30 Glucose (Glutose) 15 gm Q15M PRN PO DECREASED GLUCOSE; Start 08/17/18 at 17:30 Glucose (Glutose) 22.5 gm Q15M PRN PO DECREASED GLUCOSE; Start 08/17/18 at 17:30 Dextrose (D50w Syringe) 25 ml Q15M PRN IV DECREASED GLUCOSE; Start 08/17/18 at 17:30 Dextrose (D50w Syringe) 50 ml Q15M PRN IV DECREASED GLUCOSE; Start 08/17/18 at 17:30 Glucagon (Glucagen) 1 mg Q15M PRN IM DECREASED GLUCOSE; Start 08/17/18 at 17:30 Glucose (Glutose) 15 gm Q15M PRN BUCCAL DECREASED GLUCOSE; Start 08/17/18 at 17:30 Allergies: Coded Allergies: sildenafil (Verified Allergy, Intermediate, BODY RASH, DIAPHORETIC/TACHYPNEIC, 08/17/18) Past Surgical History Past Surgical Hx: no surgical history Social History Smoking Status: Never smoker Exam/Review of Systems Exam Vitals Vital Signs Date Temp Pulse Resp B/P (MAP) Pulse Ox O2 O2 Flow FiO2 Time Delivery Rate 08/18/18 73 20 93 Nasal 4.0 36 08:52 Cannula 08/18/18 98.4 135/60 07:23 (85) Intake and Output 08/17/18 08/17/18 08/18/18 1515:00 23:00 07:00 IntakeIntake Total 240 ml OutputOutput Total 800 ml BalanceBalance -800 ml 240 ml Exam HEENT: suple neck, positive JVD, fair dentition CHEST: CTA A FIB ABD: protuberant, non tender, BSaudible EXT: chronic LE skin changes 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 Results Result Diagram: 08/18/18 0555 08/18/18 0555 Results 24hrs Laboratory Tests Test 08/17/18 09:58 08/17/18 10:01 08/17/18 13:24 08/17/18 14:43 White Blood Count 12.4 #H Red Blood Count 4.97 Hemoglobin 13.8 Hematocrit 47.8 H Mean Corpuscular 96.2 Volume Mean Corpuscular 27.8 L Hemoglobin Mean Corpuscular 28.9 L Hemoglobin Concen t Red Cell 15.5 H Distribution Width Platelet Count 264 Mean Platelet 10.8 H Volume Immature 0.900 H Granulocytes % Neutrophils % 82.9 H Lymphocytes % 12.2 L Monocytes % 3.3 Eosinophils % 0.1 Basophils % 0.6 Nucleated Red 0.0 Blood Cells % Immature 0.110 H Granulocytes # Neutrophils # 10.2 H Lymphocytes # 1.5 Monocytes # 0.4 Eosinophils # 0.0 Basophils # 0.1 Nucleated Red 0.0 Blood Cells # Sodium Level 144 Potassium Level 5.2 H Chloride Level 101 Carbon Dioxide 35 H Level Anion Gap 8 Blood Urea 21 H Nitrogen Creatinine 0.98 Est Glomerular 57 L Filtrat Rate mL/min Glucose Level 276 H Calcium Level 10.3 H Total Bilirubin 0.8 Direct Bilirubin 0.00 Indirect 0.8 Bilirubin Aspartate Amino 18 Transf (AST/SGOT) Alanine 20 Aminotransferase (ALT/SGPT) Alkaline 113 Phosphatase Troponin I < 0.012 B-Type 2080 H Natriuretic Peptide Total Protein 7.8 Albumin 4.5 Globulin 3.30 H Albumin/Globulin 1.36 Ratio Lipase 96 POC Venous 1.4 Lactate Urine Color STRAW Urine Clarity CLEAR Urine pH 5.0 Urine Specific 1.007 [place] Urine Ketones NEGATIVE Urine Nitrite NEGATIVE Urine Bilirubin NEGATIVE Urine NEGATIVE Urobilinogen Urine Leukocyte NEGATIVE Esterase Urine Hemoglobin NEGATIVE Urine Glucose 3+ H Urine Total NEGATIVE Protein Blood Gas Blood arterial Specimen Source Arterial Blood 08/17/2018 3:56:2 Date Drawn 9 PM Arterial Blood pH 7.312 L (Temp corrected) Arterial Blood 75.9 H pCO2 (Temp correct) Arterial Blood 63.6 L pO2 (Temp corrected) Arterial Blood 37.5 H HCO3 Arterial Blood 8.2 H Base Excess Arterial Blood 90.4 L Oxygen Saturation Ramy Test ACCEPTAB Arterial Blood Right Radial Gas Puncture Site Arterial 1.0 Blood Carboxyhemo globin Arterial Blood 0.2 Methemoglobin Blood Gas A-a O2 46.5 H Differential Oxyhemoglobin 89.3 L Percent Blood Gas 37.0 Temperature Blood Gas NASAL CANNULA Modality FiO2 28.0 Blood Gas O Christiano Critical Value Read Back Blood Gas abaires Notified Whom Blood Gas 08/17/2018 4:03:4 Notified Time 1 PM Test 08/17/18 15:16 08/17/18 18:21 08/17/18 20:10 08/17/18 20:56 Potassium Level 4.7 Creatine Kinase < 20 L < 20 L Creatine Kinase Index Creatinine Kinase 0.22 < 0.22 MB (Mass) Troponin I < 0.012 < 0.012 B-Type 1890 H Natriuretic Peptide Bedside Glucose 136 178 Test 08/18/18 05:54 08/18/18 05:55 08/18/18 08:02 Hemoglobin A1c 8.2 H White Blood Count 8.4 # Red Blood Count 4.41 Hemoglobin 12.2 Hematocrit 40.9 Mean Corpuscular 92.7 Volume Mean Corpuscular 27.7 L Hemoglobin Mean Corpuscular 29.8 L Hemoglobin Concen t Red Cell 15.3 H Distribution Width Platelet Count 189 # Mean Platelet 10.5 H Volume Immature 0.500 H Granulocytes % Neutrophils % 71.0 Lymphocytes % 21.2 Monocytes % 6.3 Eosinophils % 0.2 Basophils % 0.8 Nucleated Red 0.0 Blood Cells % Immature 0.040 H Granulocytes # Neutrophils # 5.9 Lymphocytes # 1.8 Monocytes # 0.5 Eosinophils # 0.0 Basophils # 0.1 Nucleated Red 0.0 Blood Cells # Sodium Level 142 Potassium Level 4.0 Chloride Level 99 Carbon Dioxide 38 H Level Anion Gap 5 Blood Urea 21 H Nitrogen Creatinine 0.93 Est Glomerular > 60 Filtrat Rate mL/min Glucose Level 149 # Calcium Level 9.7 Phosphorus Level 3.6 Magnesium Level 1.9 Total Bilirubin 0.9 Direct Bilirubin 0.00 Indirect 0.9 Bilirubin Aspartate Amino 16 Transf (AST/SGOT) Alanine 22 Aminotransferase (ALT/SGPT) Alkaline 89 Phosphatase Total Protein 6.6 # Albumin 3.7 Globulin 2.90 Albumin/Globulin 1.27 Ratio Triglycerides 109 Level Cholesterol Level 90 L LDL Cholesterol, 40 Calculated HDL Cholesterol 28 L Cholesterol/HDL 3.2 Ratio Bedside Glucose 225 H Medications Medication Current Medications IV Flush (NS 3 ml) 3 ml PER PROTOCOL IV ; Start 08/17/18 at 15:00 Ondansetron HCl (Zofran Inj) 4 mg Q6H PRN IV NAUSEA/VOMITING; Start 08/17/18 at 15:00 Acetaminophen (Tylenol Tab) 650 mg Q6H PRN PO .PAIN 1-3 OR TEMP; Start 08/17/18 at 15:00 Acetaminophen/ Hydrocodone Bitart ([place] (5/325)) 1 tab Q6H PRN PO .MOD PAIN 4- 6; Start 08/17/18 at 15:00 Famotidine (Pepcid) 20 mg Q12 PO Last administered on 08/18/18 08:23; Admin Dose 20 MG; Start 08/17/18 at 21:00 Diagnostic Test (Pha) (Accu-Chek) 1 ea 02 XX ; Start 08/18/18 at 02:00 Insulin Glargine (Lantus) 14 units DAILY@2000 SC Last administered on 08/17/18 20:25; Admin Dose 14 UNITS; Start 08/17/18 at 20:00 Insulin Aspart (Novolog Insulin Pen) NOVOLOG *MILD* ALGORITHM WITH MEALS BEDTIME SC Last administered on 08/18/18 08:14; Admin Dose 3 UNIT; Start 08/17/18 at 18:00 Insulin Aspart (Novolog Insulin Pen) 5 unit WITH MEALS SC Last administered on 08/18/18 08:14; Admin Dose 5 UNIT; Start 08/17/18 at 18:00 Apixaban (Eliquis) 5 mg BID PO Last administered on 08/18/18 08:23; Admin Dose 5 MG; Start 08/17/18 at 21:00 Atorvastatin Calcium (Lipitor) 20 mg QHS PO Last administered on 08/17/18 20:15; Admin Dose 20 MG; Start 08/17/18 at 21:00 Carvedilol (Coreg) 12.5 mg BID PO Last administered on 08/18/18 08:23; Admin Dose 12.5 MG; Start 08/17/18 at 21:00 Digoxin (Digoxin) 0.25 mg DAILY PO Last administered on 08/18/18 08:23; Admin Dose 0.25 MG; Start 08/18/18 at 09:00 Furosemide (Lasix) 40 mg BID DIURETICS IV Last administered on 08/18/18 06:08; Admin Dose 40 MG; Start 08/17/18 at 18:00 Levalbuterol (Xopenex Neb) 1.25 mg Q4H RESP THERAPY HHN Last administered on 08/18/18 08:51; Admin Dose 1.25 MG; Start 08/17/18 at 17:00 Ipratropium [place] (Atrovent 0.02% (Neb)) 0.5 mg Q4H RESP THERAPY PRN HHN SHORTNESS OF BREATH; Start 08/17/18 at 15:00 Hydralazine HCl (Apresoline) 25 mg TID PO Last administered on 08/18/18at 08:22; Admin Dose 25 MG; Start 08/17/18 at 21:00 Levofloxacin/ Dextrose 100 ml @ 100 mls/hr Q24H IVPB Last administered on 08/17/18at 16:33; Admin Dose 100 MLS/HR; Start 08/17/18 at 15:30 Miscellaneous Information 1 ea NOTE XX ; Start 08/17/18 at 17:30 Glucose (Glutose) 15 gm Q15M PRN PO DECREASED GLUCOSE; Start 08/17/18 at 17:30 Glucose (Glutose) 22.5 gm Q15M PRN PO DECREASED GLUCOSE; Start 08/17/18 at 17:30 Dextrose (D50w Syringe) 25 ml Q15M PRN IV DECREASED GLUCOSE; Start 08/17/18 at 17:30 Dextrose (D50w Syringe) 50 ml Q15M PRN IV DECREASED GLUCOSE; Start 08/17/18 at 17:30 Glucagon (Glucagen) 1 mg Q15M PRN IM DECREASED GLUCOSE; Start 08/17/18 at 17:30 Glucose (Glutose) 15 gm Q15M PRN BUCCAL DECREASED GLUCOSE; Start 08/17/18 at 17:30 ELIZABETH VERDUZCO August 18, 2018 09:42
--- NOTE | 2018-08-18 10:07 | PN ---
Date/Time of Note Date/Time of Note DATE: 08/18/18 TIME: 10:00 Assessment/Plan VTE Prophylaxis Risk score (from Nsg)>0 risk: 5 SCD applied (from Nsg): No SCD contraindicated: other Pharmacological prophylaxis: apixaban Lines/Catheters IV Catheter Type (from Nrs): Saline Lock Assessment/Plan Hospital Course SUBJECTIVE: Patient sitting up in chair, on oxygen via nasal cannula. With i mproved work of breathing. OBJECTIVE: Vital signs-see below PHYSICAL EXAM: Constitutional: Obese female, in moderate respiratory distress. HEENT: Head atraumatic and normocephalic. Eyes: Extraocular muscles intact. Anicteric sclerae. Pupils equal bilaterally, reactive to light. NECK: Supple without lymph node. CHEST: Rails bilaterally-improved slightly, diminished bibasilar. HEART: S1, S2. Regular rate and rhythm. ABDOMEN: Soft/non tender with no rebound tenderness. Bowel sounds were present. EXTREMITIES: Chronic pedal edema/LE edema bilaterally. NEUROLOGIC: Alert and oriented x3. No focal deficit. No sensory deficit. PSYCHOSOCIAL: No signs of depression. INTEGUMENTARY: No open wounds. ASSESSMENT AND PLAN:67 yo morbidly obese F w/CHF/SUZIE/o2 dep resp fx/home CPAP use, co2 retention, pulm.HTN w/viagra allergy,dm2,hld here w/worsening SOBX1 wk duration.... Acute on chronic hypoxemic/hypercapnic respiratory failure multifactorial with SUZIE exacerbation/pulmonary hypertension/CHF exacerbation -Improving,off BiPAP -RT to titrate oxygen for SPO2 greater than 92% -[id number] breathing treatment -Hold gabapentin Acute on chronic decompensated diastolic congestive heart failure exacerbation -cont. beta-blockers.Stable K. Resume low dose ARB -IV diuresis -trops negative -f/u echo Questionable pneumonia -We will treat empirically on Levaquin MILD hyperkalemia likely secondary to ARB -Resolved. -Trial restarting ARB at a low dose while watching K Chronic atrial fibrillation -Rate controlled -on Xarelto/beta-blockers/digoxin Obstructive sleep apnea with CO2 retention -Obtain ABG -appreciate pulm recs -BiPAP/CPAP at night Pulmonary hypertension -Patient has allergy to Viagra and she is currently not on treatment for pulmonary hypertension -f/u TTE to reassess PAP -Monitor and follow-up pulmonary recommendations DM2 -uptitrated basal per body weight -cont.iss/bolus Dyslipidemia -on statin Essential hypertension -cont.bb/hydralazine -add low dose ARB Chronic bilateral lower extremity Lymphedema -This has not changed in appearance per patient. Continue elevating extremities. Morbid obesity with a BMI 53.1 -Advised on weight reduction/diet control DVT prophylaxis: Eliquis PUD prophylaxis: Pepcid Dispo;Overall gradually improving. OFF BiPAP. Cont tele, IV diuresis, volume/electrolyte status monitor Patient was seen in collaboration with Dr. Maya. Result Diagram: 08/18/1855 08/18/1855 Results 24hrs Laboratory Tests Test 08/17/18 10:01 08/17/18 13:24 08/17/18 14:43 08/17/18 15:16 POC Venous 1.4 Lactate Urine Color STRAW Urine Clarity CLEAR Urine pH 5.0 Urine Specific 1.007 [place] Urine Ketones NEGATIVE Urine Nitrite NEGATIVE Urine Bilirubin NEGATIVE Urine NEGATIVE Urobilinogen Urine Leukocyte NEGATIVE Esterase Urine Hemoglobin NEGATIVE Urine Glucose 3+ H Urine Total NEGATIVE Protein Blood Gas Blood arterial Specimen Source Arterial Blood 08/17/2018 3:56:2 Date Drawn 9 PM Arterial Blood pH 7.312 L (Temp corrected) Arterial Blood 75.9 H pCO2 (Temp correct) Arterial Blood 63.6 L pO2 (Temp corrected) Arterial Blood 37.5 H HCO3 Arterial Blood 8.2 H Base Excess Arterial Blood 90.4 L Oxygen Saturation Ramy Test ACCEPTAB Arterial Blood Right Radial Gas Puncture Site Arterial 1.0 Blood Carboxyhemo globin Arterial Blood 0.2 Methemoglobin Blood Gas A-a O2 46.5 H Differential Oxyhemoglobin 89.3 L Percent Blood Gas 37.0 Temperature Blood Gas NASAL CANNULA Modality FiO2 28.0 Blood Gas O [facility] Critical Value Read Back Blood Gas abaires Notified Whom Blood Gas 08/17/2018 4:03:4 Notified Time 1 PM Potassium Level 4.7 Creatine Kinase < 20 L Creatine Kinase Index Creatinine Kinase 0.22 MB (Mass) Troponin I < 0.012 B-Type 1890 H Natriuretic Peptide Test 08/17/18 18:21 08/17/18 20:10 08/17/18 20:56 08/18/18 05:54 Bedside Glucose 136 178 Creatine Kinase < 20 L Creatine Kinase Index Creatinine Kinase < 0.22 MB (Mass) Troponin I < 0.012 Hemoglobin A1c 8.2 H Test 08/18/18 05:55 08/18/18 08:02 White Blood Count 8.4 # Red Blood Count 4.41 Hemoglobin 12.2 Hematocrit 40.9 Mean Corpuscular 92.7 Volume Mean Corpuscular 27.7 L Hemoglobin Mean Corpuscular 29.8 L Hemoglobin Concen t Red Cell 15.3 H Distribution Width Platelet Count 189 # Mean Platelet 10.5 H Volume Immature 0.500 H Granulocytes % Neutrophils % 71.0 Lymphocytes % 21.2 Monocytes % 6.3 Eosinophils % 0.2 Basophils % 0.8 Nucleated Red 0.0 Blood Cells % Immature 0.040 H Granulocytes # Neutrophils # 5.9 Lymphocytes # 1.8 Monocytes # 0.5 Eosinophils # 0.0 Basophils # 0.1 Nucleated Red 0.0 Blood Cells # Sodium Level 142 Potassium Level 4.0 Chloride Level 99 Carbon Dioxide 38 H Level Anion Gap 5 Blood Urea 21 H Nitrogen Creatinine 0.93 Est Glomerular > 60 Filtrat Rate mL/min Glucose Level 149 # Calcium Level 9.7 Phosphorus Level 3.6 Magnesium Level 1.9 Total Bilirubin 0.9 Direct Bilirubin 0.00 Indirect 0.9 Bilirubin Aspartate Amino 16 Transf (AST/SGOT) Alanine 22 Aminotransferase (ALT/SGPT) Alkaline 89 Phosphatase Total Protein 6.6 # Albumin 3.7 Globulin 2.90 Albumin/Globulin 1.27 Ratio Triglycerides 109 Level Cholesterol Level 90 L LDL Cholesterol, 40 Calculated HDL Cholesterol 28 L Cholesterol/HDL 3.2 Ratio Bedside Glucose 225 H Exam/Review of Systems Exam Vitals Vital Signs Date Temp Pulse Resp B/P (MAP) Pulse Ox O2 O2 Flow FiO2 Time Delivery Rate 08/18/18 73 20 93 Nasal 4.0 36 08:52 Cannula 08/18/18 98.4 135/60 07:23 (85) Intake and Output 08/17/18 08/17/18 08/18/18 1515:00 23:00 07:00 IntakeIntake Total 240 ml OutputOutput Total 800 ml BalanceBalance -800 ml 240 ml Results Results 24hrs Laboratory Tests Test 08/17/18 10:01 08/17/18 13:24 08/17/18 14:43 08/17/18 15:16 POC Venous 1.4 Lactate Urine Color STRAW Urine Clarity CLEAR Urine pH 5.0 Urine Specific 1.007 [place] Urine Ketones NEGATIVE Urine Nitrite NEGATIVE Urine Bilirubin NEGATIVE Urine NEGATIVE Urobilinogen Urine Leukocyte NEGATIVE Esterase Urine Hemoglobin NEGATIVE Urine Glucose 3+ H Urine Total NEGATIVE Protein Blood Gas Blood arterial Specimen Source Arterial Blood 08/17/2018 3:56:2 Date Drawn 9 PM Arterial Blood pH 7.312 L (Temp corrected) Arterial Blood 75.9 H pCO2 (Temp correct) Arterial Blood 63.6 L pO2 (Temp corrected) Arterial Blood 37.5 H HCO3 Arterial Blood 8.2 H Base Excess Arterial Blood 90.4 L Oxygen Saturation Ramy Test ACCEPTAB Arterial Blood Right Radial Gas Puncture Site Arterial 1.0 Blood Carboxyhemo globin Arterial Blood 0.2 Methemoglobin Blood Gas A-a O2 46.5 H Differential Oxyhemoglobin 89.3 L Percent Blood Gas 37.0 Temperature Blood Gas NASAL CANNULA Modality FiO2 28.0 Blood Gas O [place] Critical Value Read Back Blood Gas abaires Notified Whom Blood Gas 08/17/2018 4:03:4 Notified Time 1 PM Potassium Level 4.7 Creatine Kinase < 20 L Creatine Kinase Index Creatinine Kinase 0.22 MB (Mass) Troponin I < 0.012 B-Type 1890 H Natriuretic Peptide Test 08/17/18 18:21 08/17/18 20:10 08/17/18 20:56 08/18/18 05:54 Bedside Glucose 136 178 Creatine Kinase < 20 L Creatine Kinase Index Creatinine Kinase < 0.22 MB (Mass) Troponin I < 0.012 Hemoglobin A1c 8.2 H Test 08/18/18 05:55 08/18/18 08:02 White Blood Count 8.4 # Red Blood Count 4.41 Hemoglobin 12.2 Hematocrit 40.9 Mean Corpuscular 92.7 Volume Mean Corpuscular 27.7 L Hemoglobin Mean Corpuscular 29.8 L Hemoglobin Concen t Red Cell 15.3 H Distribution Width Platelet Count 189 # Mean Platelet 10.5 H Volume Immature 0.500 H Granulocytes % Neutrophils % 71.0 Lymphocytes % 21.2 Monocytes % 6.3 Eosinophils % 0.2 Basophils % 0.8 Nucleated Red 0.0 Blood Cells % Immature 0.040 H Granulocytes # Neutrophils # 5.9 Lymphocytes # 1.8 Monocytes # 0.5 Eosinophils # 0.0 Basophils # 0.1 Nucleated Red 0.0 Blood Cells # Sodium Level 142 Potassium Level 4.0 Chloride Level 99 Carbon Dioxide 38 H Level Anion Gap 5 Blood Urea 21 H Nitrogen Creatinine 0.93 Est Glomerular > 60 Filtrat Rate mL/min Glucose Level 149 # Calcium Level 9.7 Phosphorus Level 3.6 Magnesium Level 1.9 Total Bilirubin 0.9 Direct Bilirubin 0.00 Indirect 0.9 Bilirubin Aspartate Amino 16 Transf (AST/SGOT) Alanine 22 Aminotransferase (ALT/SGPT) Alkaline 89 Phosphatase Total Protein 6.6 # Albumin 3.7 Globulin 2.90 Albumin/Globulin 1.27 Ratio Triglycerides 109 Level Cholesterol Level 90 L LDL Cholesterol, 40 Calculated HDL Cholesterol 28 L Cholesterol/HDL 3.2 Ratio Bedside Glucose 225 H Medications Medication Current Medications IV Flush (NS 3 ml) 3 ml PER PROTOCOL IV ; Start 08/17/18 at 15:00 Ondansetron HCl (Zofran Inj) 4 mg Q6H PRN IV NAUSEA/VOMITING; Start 08/17/18 at 15:00 Acetaminophen (Tylenol Tab) 650 mg Q6H PRN PO .PAIN 1-3 OR TEMP; Start 08/17/18 at 15:00 Acetaminophen/ Hydrocodone Bitart ([place] (5/325)) 1 tab Q6H PRN PO .MOD PAIN 4- 6; Start 08/17/18 at 15:00 Famotidine (Pepcid) 20 mg Q12 PO Last administered on 08/18/18at 08:23; Admin Dose 20 MG; Start 08/17/18 at 21:00 Diagnostic Test (Pha) (Accu-Chek) 1 ea 02 XX ; Start 08/18/18 at 02:00 Insulin Glargine (Lantus) 14 units DAILY@2000 SC Last administered on 08/17/18at 20:25; Admin Dose 14 UNITS; Start 08/17/18 at 20:00 Insulin Aspart (Novolog Insulin Pen) NOVOLOG *MILD* ALGORITHM WITH MEALS BEDTIME SC Last administered on 08/18/18at 08:14; Admin Dose 3 UNIT; Start 08/17/18 at 18:00 Insulin Aspart (Novolog Insulin Pen) 5 unit WITH MEALS SC Last administered on 08/18/18at 08:14; Admin Dose 5 UNIT; Start 08/17/18 at 18:00 Apixaban (Eliquis) 5 mg BID PO Last administered on 08/18/18at 08:23; Admin Dose 5 MG; Start 08/17/18 at 21:00 Atorvastatin Calcium (Lipitor) 20 mg QHS PO Last administered on 08/17/18at 20:15; Admin Dose 20 MG; Start 08/17/18 at 21:00 Carvedilol (Coreg) 12.5 mg BID PO Last administered on 08/18/18at 08:23; Admin Dose 12.5 MG; Start 08/17/18 at 21:00 Digoxin (Digoxin) 0.25 mg DAILY PO Last administered on 08/18/18at 08:23; Admin Dose 0.25 MG; Start 08/18/18 at 09:00 Furosemide (Lasix) 40 mg BID DIURETICS IV Last administered on 08/18/18at 06:08; Admin Dose 40 MG; Start 08/17/18 at 18:00 Levalbuterol (Xopenex Neb) 1.25 mg Q4H RESP THERAPY HHN Last administered on 08/18/18at 08:51; Admin Dose 1.25 MG; Start 08/17/18 at 17:00 Ipratropium [place] (Atrovent 0.02% (Neb)) 0.5 mg Q4H RESP THERAPY PRN HHN SHORTNESS OF BREATH; Start 08/17/18 at 15:00 Hydralazine HCl (Apresoline) 25 mg TID PO Last administered on 08/18/18at 08:22; Admin Dose 25 MG; Start 08/17/18 at 21:00 Levofloxacin/ Dextrose 100 ml @ 100 mls/hr Q24H IVPB Last administered on 08/17/18at 16:33; Admin Dose 100 MLS/HR; Start 08/17/18 at 15:30 Miscellaneous Information 1 ea NOTE XX ; Start 08/17/18 at 17:30 Glucose (Glutose) 15 gm Q15M PRN PO DECREASED GLUCOSE; Start 08/17/18 at 17:30 Glucose (Glutose) 22.5 gm Q15M PRN PO DECREASED GLUCOSE; Start 08/17/18 at 17:30 Dextrose (D50w Syringe) 25 ml Q15M PRN IV DECREASED GLUCOSE; Start 08/17/18 at 17:30 Dextrose (D50w Syringe) 50 ml Q15M PRN IV DECREASED GLUCOSE; Start 08/17/18 at 17:30 Glucagon (Glucagen) 1 mg Q15M PRN IM DECREASED GLUCOSE; Start 08/17/18 at 17:30 Glucose (Glutose) 15 gm Q15M PRN BUCCAL DECREASED GLUCOSE; Start 08/17/18 at 17:30 KIA DELEON NP August 18, 2018 10:07
[2018-08-18] MEDS ORDERED: BUMETANIDE 1 MG INJ IV ONE (12:00)
--- NOTE | 2018-08-18 12:01 | CONS ---
Assessment/Plan Cardiology NYHA: III Heart Failure Type: Acute on Chronic Heart Failure Type: Diastolic Assessment/Plan Hospital Course (Demo Recall) Acute decompensated diastolic congestive heart failure Preserved ejection fraction Atrial fibrillation Hypertension Diabetes Morbid obesity Obstructive sleep apnea Likely obesity hypoventilation syndrome Patient with improvement in symptoms after diuresis and is currently off BiPAP Serial cardiac enzymes remain negative Would use Bumex drip today for diuresis Patient atrial fibrillation currently heart rate is controlled. Continue beta- viola as tolerated, continue anticoagulation Consultation Date/Type/Reason Admit Date/Time August 17, 2018 at 12:20 Initial Consult Date 08/18/18 Type of Consult Cardiology Date/Time of Note DATE: 08/18/18 TIME: 12:00 24 HR Interval Summary Free Text/Dictation Shortness of breath is better. Denies chest pain or palpitations Exam/Review of Systems Vital Signs Vitals Vital Signs Date Temp Pulse Resp B/P (MAP) Pulse Ox O2 O2 Flow FiO2 Time Delivery Rate 08/18/18 97.8 80 22 128/70 11:33 (89) 08/18/18 93 Nasal 4.0 36 08:52 Cannula Intake and Output 08/17/18 08/17/18 08/18/18 1515:00 23:00 07:00 IntakeIntake Total 240 ml OutputOutput Total 800 ml BalanceBalance -800 ml 240 ml Exam Constitutional: alert, oriented (No apparent distress) Head: normocephalic Respiratory: other (Coarse breath sounds, scattered crackles, decreased at the bases) Cardiovascular: irregular rhythm (S1-S2 heard) Gastrointestinal: soft, non-tender, bowel sounds Extremities: edema Labs Result Diagram: 08/18/18 0555 08/18/18 0555 Results 24hrs Laboratory Tests Test 08/17/18 13:24 08/17/18 14:43 08/17/18 15:16 08/17/18 18:21 Urine Color STRAW Urine Clarity CLEAR Urine pH 5.0 Urine Specific 1.007 [place] Urine Ketones NEGATIVE Urine Nitrite NEGATIVE Urine Bilirubin NEGATIVE Urine NEGATIVE Urobilinogen Urine Leukocyte NEGATIVE Esterase Urine Hemoglobin NEGATIVE Urine Glucose 3+ H Urine Total NEGATIVE Protein Blood Gas Blood arterial Specimen Source Arterial Blood 08/17/2018 3:56:2 Date Drawn 9 PM Arterial Blood pH 7.312 L (Temp corrected) Arterial Blood 75.9 H pCO2 (Temp correct) Arterial Blood 63.6 L pO2 (Temp corrected) Arterial Blood 37.5 H HCO3 Arterial Blood 8.2 H Base Excess Arterial Blood 90.4 L Oxygen Saturation Ramy Test ACCEPTAB Arterial Blood Right Radial Gas Puncture Site Arterial 1.0 Blood Carboxyhemo globin Arterial Blood 0.2 Methemoglobin Blood Gas A-a O2 46.5 H Differential Oxyhemoglobin 89.3 L Percent Blood Gas 37.0 Temperature Blood Gas NASAL CANNULA Modality FiO2 28.0 Blood Gas O [place] Critical Value Read Back Blood Gas abaires Notified Whom Blood Gas 08/17/2018 4:03:4 Notified Time 1 PM Potassium Level 4.7 Creatine Kinase < 20 L Creatine Kinase Index Creatinine Kinase 0.22 MB (Mass) Troponin I < 0.012 B-Type 1890 H Natriuretic Peptide Bedside Glucose 136 Test 08/17/18 20:10 08/17/18 20:56 08/18/18 05:54 08/18/18 05:55 Bedside Glucose 178 Creatine Kinase < 20 L Creatine Kinase Index Creatinine Kinase < 0.22 MB (Mass) Troponin I < 0.012 Hemoglobin A1c 8.2 H White Blood Count 8.4 # Red Blood Count 4.41 Hemoglobin 12.2 Hematocrit 40.9 Mean Corpuscular 92.7 Volume Mean Corpuscular 27.7 L Hemoglobin Mean Corpuscular 29.8 L Hemoglobin Concen t Red Cell 15.3 H Distribution Width Platelet Count 189 # Mean Platelet 10.5 H Volume Immature 0.500 H Granulocytes % Neutrophils % 71.0 Lymphocytes % 21.2 Monocytes % 6.3 Eosinophils % 0.2 Basophils % 0.8 Nucleated Red 0.0 Blood Cells % Immature 0.040 H Granulocytes # Neutrophils # 5.9 Lymphocytes # 1.8 Monocytes # 0.5 Eosinophils # 0.0 Basophils # 0.1 Nucleated Red 0.0 Blood Cells # Sodium Level 142 Potassium Level 4.0 Chloride Level 99 Carbon Dioxide 38 H Level Anion Gap 5 Blood Urea 21 H Nitrogen Creatinine 0.93 Est Glomerular > 60 Filtrat Rate mL/min Glucose Level 149 # Calcium Level 9.7 Phosphorus Level 3.6 Magnesium Level 1.9 Total Bilirubin 0.9 Direct Bilirubin 0.00 Indirect 0.9 Bilirubin Aspartate Amino 16 Transf (AST/SGOT) Alanine 22 Aminotransferase (ALT/SGPT) Alkaline 89 Phosphatase Total Protein 6.6 # Albumin 3.7 Globulin 2.90 Albumin/Globulin 1.27 Ratio Triglycerides 109 Level Cholesterol Level 90 L LDL Cholesterol, 40 Calculated HDL Cholesterol 28 L Cholesterol/HDL 3.2 Ratio Test 08/18/18 08:02 08/18/18 11:47 Bedside Glucose 225 H 211 Medications Medications Current Medications IV Flush (NS 3 ml) 3 ml PER PROTOCOL IV ; Start 08/17/18 at 15:00 Ondansetron HCl (Zofran Inj) 4 mg Q6H PRN IV NAUSEA/VOMITING; Start 08/17/18 at 15:00 Acetaminophen (Tylenol Tab) 650 mg Q6H PRN PO .PAIN 1-3 OR TEMP; Start 08/17/18 at 15:00 Acetaminophen/ Hydrocodone Bitart ([place] (5/325)) 1 tab Q6H PRN PO .MOD PAIN 4- 6; Start 08/17/18 at 15:00 Famotidine (Pepcid) 20 mg Q12 PO Last administered on 08/18/18 08:23; Admin Dose 20 MG; Start 08/17/18 at 21:00 Diagnostic Test (Pha) (Accu-Chek) 1 ea 02 XX ; Start 08/18/18 at 02:00 Insulin Aspart (Novolog Insulin Pen) NOVOLOG *MILD* ALGORITHM WITH MEALS BEDTIME SC Last administered on 08/18/18at 11:57; Admin Dose 2 UNIT; Start 08/17/18 at 18:00 Apixaban (Eliquis) 5 mg BID PO Last administered on 08/18/18 08:23; Admin Dose 5 MG; Start 08/17/18 at 21:00 Atorvastatin Calcium (Lipitor) 20 mg QHS PO Last administered on 08/17/18at 20:15; Admin Dose 20 MG; Start 08/17/18 at 21:00 Carvedilol (Coreg) 12.5 mg BID PO Last administered on 08/18/18 08:23; Admin Dose 12.5 MG; Start 08/17/18 at 21:00 Digoxin (Digoxin) 0.25 mg DAILY PO Last administered on 08/18/18 08:23; Admin Dose 0.25 MG; Start 08/18/18 at 09:00 Furosemide (Lasix) 40 mg BID DIURETICS IV Last administered on 08/18/18at 06:08; Admin Dose 40 MG; Start 08/17/18 at 18:00 Levalbuterol (Xopenex Neb) 1.25 mg Q4H RESP THERAPY HHN Last administered on 08/18/18at 08:51; Admin Dose 1.25 MG; Start 08/17/18 at 17:00 Ipratropium [place] (Atrovent 0.02% (Neb)) 0.5 mg Q4H RESP THERAPY PRN HHN SHORTNESS OF BREATH; Start 08/17/18 at 15:00 Hydralazine HCl (Apresoline) 25 mg TID PO Last administered on 08/18/18at 08:22; Admin Dose 25 MG; Start 08/17/18 at 21:00 Levofloxacin/ Dextrose 100 ml @ 100 mls/hr Q24H IVPB Last administered on 08/17/18at 16:33; Admin Dose 100 MLS/HR; Start 08/17/18 at 15:30 Miscellaneous Information 1 ea NOTE XX ; Start 08/17/18 at 17:30 Glucose (Glutose) 15 gm Q15M PRN PO DECREASED GLUCOSE; Start 08/17/18 at 17:30 Glucose (Glutose) 22.5 gm Q15M PRN PO DECREASED GLUCOSE; Start 08/17/18 at 17:30 Dextrose (D50w Syringe) 25 ml Q15M PRN IV DECREASED GLUCOSE; Start 08/17/18 at 17:30 Dextrose (D50w Syringe) 50 ml Q15M PRN IV DECREASED GLUCOSE; Start 08/17/18 at 17:30 Glucagon (Glucagen) 1 mg Q15M PRN IM DECREASED GLUCOSE; Start 08/17/18 at 17:30 Glucose (Glutose) 15 gm Q15M PRN BUCCAL DECREASED GLUCOSE; Start 08/17/18 at 17:30 Insulin Aspart (Novolog Insulin Pen) 10 unit WITH MEALS SC Last administered on 08/18/18at 11:57; Admin Dose 10 UNIT; Start 08/18/18 at 12:00 Insulin Glargine (Lantus) 30 units DAILY@2000 SC ; Start 08/18/18 at 20:00 Watson Mckay DO August 18, 2018 12:01
[2018-08-18] MEDS ORDERED: BUMETANIDE 3 MG in DEXTROSE 5% 18 ML IV ONE (13:00)
[2018-08-18] MEDS: LEVOFLOXACIN 500MG/D5W (PMX) 100 ML IVPB SCH (15:07)
[2018-08-18] MEDS: ATORVASTATIN 20 MG TAB PO SCH (20:14)
[2018-08-18] MEDS: INSULIN GLARGINE [LANTus] (100 UNITS/ML) SYG SC SCH (21:01)
[2018-08-19] VITALS (11 sets, daily range): BP systolic 118–128; BP diastolic 59–69; PULSE 69–95; RESP 18–20
[2018-08-19] MEDS: LEVALBUTEROL (NEB) 1.25 MG/0.5 ML AMP HHN SCH ×6 (00:16→21:13)
[2018-08-19] MEDS: ACCU-CHEK XX SCH (02:00)
[2018-08-19] MEDS ORDERED: BUMETANIDE 1 MG INJ IV SCH (06:00)
[2018-08-19] MEDS: INSULIN ASPART [NOVOLOG] 3 ML PEN SC SCH ×7 (07:55→21:00)
[2018-08-19] MEDS: APIXABAN 5 MG TABLET PO SCH ×2 (08:45→20:50)
[2018-08-19] MEDS: DIGOXIN 0.25 MG TAB PO SCH (08:45)
[2018-08-19] MEDS: FAMOTIDINE 20 MG TAB PO SCH ×2 (08:45→20:50)
--- NOTE | 2018-08-19 09:11 | CONS ---
Assessment/Plan Assessment/Plan Assessment/Plan (Daily) Assessment and recommendations; 1. Patient admitted with CHF exacerbation with hypercapnic respiratory failure likely due to underlying sleep apnea. Clinically improving on current treatment regimen. 2. History of hypertension and diabetes. 3. History of chronic atrial fibrillation. Continue current supportive care. Obtain follow-up chest x-ray tomorrow. If there is persistent right pleural effusion patient may benefit from therapeutic thoracentesis. Patient also will require home BiPAP. Consultation Date/Type/Reason Admit Date/Time August 17, 2018 at 12:20 Initial Consult Date 08/18/18 Type of Consult Pulmonary Patient is a 67-year-old lady who came into the hospital with shortness of breath. Upon evaluation chest x-ray was done which is showing changes consistent with CHF. Patient subsequently had a CT of the chest done which is showing mild to moderate right pleural effusion with changes of CHF as well. Since admission patient is feeling significant improvement in her symptoms. Denies any chest pain, coughing, wheezing, any sputum production. By the time I saw her, patient appeared very comfortable and was sitting in a chair by bedside. Past medical history; 1. CHF. 2. Diabetes. 3. Chronic atrial fibrillation. 4. Likely chronic type II respiratory failure due to underlying sleep apnea. Medications; reviewed. Allergies; as outlined above. Social history; no history of any smoking. Family history; patient does have a supportive family. Occupational history; patient has been a housewife. Review of systems; denies any headache, visual changes, seizures, postnasal drip. Any heartburn. Any chest pain, angina, wheezing, cough. Complains of chronic orthopnea. Denies any weight gain. Denies any abdominal pain, nausea vomiting. Any edema. Complains of chronic dyspnea on exertion. Denies any melena or hematochezia. Does complain of daytime sleepiness. GE: no distress Date/Time of Note DATE: 08/19/18 TIME: 09:09 24 HR Interval Summary Free Text/Dictation Patient's condition is stable. Has been on nocturnal BiPAP. Denies any shortness of breath at rest. General exam; elderly female, awake and alert. Sitting in a chair by bedside. Currently in no distress. Exam/Review of Systems Exam Vitals Vital Signs Date Temp Pulse Resp B/P (MAP) Pulse Ox O2 O2 Flow FiO2 Time Delivery Rate 08/19/18 73 20 95 Nasal 5.0 08:37 Cannula 08/19/18 98.3 120/66 08:06 (84) 08/19/18 45 00:16 Intake and Output 08/18/18 08/18/18 08/19/18 1515:00 23:00 07:00 IntakeIntake Total 1315 ml 360 ml OutputOutput Total 1400 ml BalanceBalance 1315 ml -1040 ml Exam HEENT exam; supple neck, positive JVD. No lymphadenopathy. Midline trachea. No thyromegaly. Patient has fair dentition. Chest exam; diminished breath sounds bilaterally. S1-S2 audible, no murmurs. Irregular rhythm. Abdomen exam; soft, protuberant. Nontender. Bowel sounds audible. Extremity exam; chronic lower extremity skin changes. DIRECTOR GRAPHICS exam; no focal deficit. Results Result Diagram: 08/18/18 0555 08/19/18 0517 Results 24hrs Laboratory Tests Test 08/18/18 11:47 08/18/18 17:41 08/18/18 20:11 08/19/18 05:17 Bedside Glucose 211 220 167 Sodium Level 143 Potassium Level 3.7 Chloride Level 95 L Carbon Dioxide Level 43 *H Anion Gap 5 Blood Urea Nitrogen 23 H Creatinine 0.98 Est Glomerular 57 L Filtrat Rate mL/min Glucose Level 221 H Calcium Level 9.5 Magnesium Level 1.8 Test 08/19/18 07:50 Bedside Glucose 210 Medications Medication Current Medications IV Flush (NS 3 ml) 3 ml PER PROTOCOL IV ; Start 08/17/18 at 15:00 Ondansetron HCl (Zofran Inj) 4 mg Q6H PRN IV NAUSEA/VOMITING; Start 08/17/18 at 15:00 Acetaminophen (Tylenol Tab) 650 mg Q6H PRN PO .PAIN 1-3 OR TEMP; Start 08/17/18 at 15:00 Acetaminophen/ Hydrocodone Bitart ([place] (5/325)) 1 tab Q6H PRN PO .MOD PAIN 4- 6; Start 08/17/18 at 15:00 Famotidine (Pepcid) 20 mg Q12 PO Last administered on 08/19/18at 08:45; Admin Dose 20 MG; Start 08/17/18 at 21:00 Diagnostic Test (Pha) (Accu-Chek) 1 ea 02 XX ; Start 08/18/18 at 02:00 Insulin Aspart (Novolog Insulin Pen) NOVOLOG *MILD* ALGORITHM WITH MEALS BEDTIME SC Last administered on 08/19/18 07:55; Admin Dose 2 UNIT; Start 08/17/18 at 18:00 Apixaban (Eliquis) 5 mg BID PO Last administered on 08/19/18 08:45; Admin Dose 5 MG; Start 08/17/18 at 21:00 Atorvastatin Calcium (Lipitor) 20 mg QHS PO Last administered on 08/18/18 20:14; Admin Dose 20 MG; Start 08/17/18 at 21:00 Carvedilol (Coreg) 12.5 mg BID PO Last administered on 08/19/18 08:45; Admin Dose 12.5 MG; Start 08/17/18 at 21:00 Digoxin (Digoxin) 0.25 mg DAILY PO Last administered on 08/19/18 08:45; Admin Dose 0.25 MG; Start 08/18/18 at 09:00 Levalbuterol (Xopenex Neb) 1.25 mg Q4H RESP THERAPY HHN Last administered on 08/19/18 08:33; Admin Dose 1.25 MG; Start 08/17/18 at 17:00 Ipratropium [place] (Atrovent 0.02% (Neb)) 0.5 mg Q4H RESP THERAPY PRN HHN SHORTNESS OF BREATH; Start 08/17/18 at 15:00 Hydralazine HCl (Apresoline) 25 mg TID PO Last administered on 08/19/18at 08:44; Admin Dose 25 MG; Start 08/17/18 at 21:00 Levofloxacin/ Dextrose 100 ml @ 100 mls/hr Q24H IVPB Last administered on 08/18/18at 15:07; Admin Dose 100 MLS/HR; Start 08/17/18 at 15:30 Miscellaneous Information 1 ea NOTE XX ; Start 08/17/18 at 17:30 Glucose (Glutose) 15 gm Q15M PRN PO DECREASED GLUCOSE; Start 08/17/18 at 17:30 Glucose (Glutose) 22.5 gm Q15M PRN PO DECREASED GLUCOSE; Start 08/17/18 at 17:30 Dextrose (D50w Syringe) 25 ml Q15M PRN IV DECREASED GLUCOSE; Start 08/17/18 at 17:30 Dextrose (D50w Syringe) 50 ml Q15M PRN IV DECREASED GLUCOSE; Start 08/17/18 at 17:30 Glucagon (Glucagen) 1 mg Q15M PRN IM DECREASED GLUCOSE; Start 08/17/18 at 17:30 Glucose (Glutose) 15 gm Q15M PRN BUCCAL DECREASED GLUCOSE; Start 08/17/18 at 17 :30 Insulin Aspart (Novolog Insulin Pen) 10 unit WITH MEALS SC Last administered on 08/19/18at 07:55; Admin Dose 10 UNIT; Start 08/18/18 at 12:00 Insulin Glargine (Lantus) 30 units DAILY@2000 SC Last administered on 08/18/18at 21:01; Admin Dose 30 UNITS; Start 08/18/18 at 20:00 Bumetanide (Bumex) 1 mg BID DIURETICS IV Last administered on 08/19/18at 06:08; Admin Dose 1 MG; Start 08/19/18 at 06:00 ELIZABETH VERDUZCO August 19, 2018 09:11
--- NOTE | 2018-08-19 11:16 | PN ---
Date/Time of Note Date/Time of Note DATE: 08/19/18 TIME: 11:10 Assessment/Plan VTE Prophylaxis Risk score (from Nsg)>0 risk: 5 SCD applied (from Ns): No SCD contraindicated: other Pharmacological prophylaxis: apixaban Lines/Catheters IV Catheter Type [facility]from [facility]): [place] Assessment/Plan Hospital Course SUBJECTIVE:, Patient with improved work of breathing. No acute overnight epi sodes. OBJECTIVE: Vital signs-see below PHYSICAL EXAM: Constitutional: Obese female, in moderate respiratory distress. HEENT: Head atraumatic and normocephalic. Eyes: Extraocular muscles intact. A nicteric sclerae. Pupils equal bilaterally, reactive to light. NECK: Supple without lymph node. CHEST: Few rales mostly on right upper lobe., diminished bibasilar. HEART: S1, S2. Regular rate and rhythm. ABDOMEN: Soft/non tender with no rebound tenderness. Bowel sounds were present. EXTREMITIES: Chronic pedal edema/LE edema bilaterally. NEUROLOGIC: Alert and oriented x3. No focal deficit. No sensory deficit. PSYCHOSOCIAL: No signs of depression. INTEGUMENTARY: No open wounds. ASSESSMENT AND PLAN:67 yo morbidly obese F w/CHF/SUZIE/o2 dep resp fx/home CPAP use, co2 retention, pulm.HTN w/viagra allergy,dm2,hld here w/worsening SOBX1 wk duration.... Acute on chronic hypoxemic/hypercapnic respiratory failure multifactorial with SUZIE exacerbation/pulmonary hypertension/CHF exacerbation -Improving,off BiPAP -RT to titrate oxygen for SPO2 greater than 92% -Qoczkc-muv-jzofh breathing treatment -Continue holding gabapentin Acute on chronic decompensated diastolic congestive heart failure exacerbation -cont. beta-blockers.Stable K. Resume low dose ARB -IV diuresis -trops negative -f/u echo Right-sided pleural effusion -With interval improvement. Right side still with moderate amount of effusion for which we will attempt ultrasound-guided thoracentesis. Superimposed pneumonia -Clinically improved. Continue Levaquin Chronic atrial fibrillation -Rate controlled -on Xarelto/beta-blockers/digoxin Obstructive sleep apnea with CO2 retention -Obtain ABG -appreciate pulm recs -BiPAP/CPAP at night Pulmonary hypertension -Patient has allergy to Viagra and she is currently not on treatment for pulmonary hypertension -Monitor and follow-up pulmonary recommendations DM2 -uptitrated basal per body weight -cont.iss/bolus Dyslipidemia -on statin Essential hypertension -cont.bb/hydralazine -We will start low-dose ARB today and will watch potassium level closely Chronic bilateral lower extremity Lymphedema -This has not changed in appearance per patient. Continue elevating extrem ities. Morbid obesity with a BMI 53.1 -Advised on weight reduction/diet control DVT prophylaxis: Eliquis PUD prophylaxis: Pepcid Dispo;Overall gradually improving. Attempt ultrasound-guided thoracentesis today. Await for further clinical improvement. Patient was seen in collaboration with Dr. Maya. Result Diagram: 08/18/18 0555 08/19/18 0517 Results 24hrs Laboratory Tests Test 08/18/18 11:47 08/18/18 17:41 08/18/18 20:11 08/19/18 05:17 Bedside Glucose 211 220 167 Sodium Level 143 Potassium Level 3.7 Chloride Level 95 L Carbon Dioxide Level 43 *H Anion Gap 5 Blood Urea Nitrogen 23 H Creatinine 0.98 Est Glomerular 57 L Filtrat Rate mL/min Glucose Level 221 H Calcium Level 9.5 Magnesium Level 1.8 Test 08/19/18 07:50 Bedside Glucose 210 Exam/Review of Systems Exam Vitals Vital Signs Date Temp Pulse Resp B/P (MAP) Pulse Ox O2 O2 Flow FiO2 Time Delivery Rate 08/19/18 73 20 95 Nasal 5.0 08:37 Cannula 08/19/18 98.3 120/66 08:06 (84) 08/19/18 45 00:16 Intake and Output 08/18/18 08/18/18 08/19/18 1515:00 23:00 07:00 IntakeIntake Total 1315 ml 360 ml OutputOutput Total 1400 ml BalanceBalance 1315 ml -1040 ml Results Results 24hrs Laboratory Tests Test 08/18/18 11:47 08/18/18 17:41 08/18/18 20:11 08/19/18 05:17 Bedside Glucose 211 220 167 Sodium Level 143 Potassium Level 3.7 Chloride Level 95 L Carbon Dioxide Level 43 *H Anion Gap 5 Blood Urea Nitrogen 23 H Creatinine 0.98 Est Glomerular 57 L Filtrat Rate mL/min Glucose Level 221 H Calcium Level 9.5 Magnesium Level 1.8 Test 08/19/18 07:50 Bedside Glucose 210 Medications Medication Current Medications IV Flush (NS 3 ml) 3 ml PER PROTOCOL IV ; Start 08/17/18 at 15:00 Ondansetron HCl (Zofran Inj) 4 mg Q6H PRN IV NAUSEA/VOMITING; Start 08/17/18 at 15:00 Acetaminophen (Tylenol Tab) 650 mg Q6H PRN PO .PAIN 1-3 OR TEMP; Start 08/17/18 at 15:00 Acetaminophen/ Hydrocodone Bitart ([place] (5/325)) 1 tab Q6H PRN PO .MOD PAIN 4- 6; Start 08/17/18 at 15:00 Famotidine (Pepcid) 20 mg Q12 PO Last administered on 08/19/18 08:45; Admin Dose 20 MG; Start 08/17/18 at 21:00 Diagnostic Test (Pha) (Accu-Chek) 1 ea 02 XX ; Start 08/18/18 at 02:00 Insulin Aspart (Novolog Insulin Pen) NOVOLOG *MILD* ALGORITHM WITH MEALS BEDTIME SC Last administered on 08/19/18 07:55; Admin Dose 2 UNIT; Start 08/17/18 at 18:00 Apixaban (Eliquis) 5 mg BID PO Last administered on 08/19/18 08:45; Admin Dose 5 MG; Start 08/17/18 at 21:00 Atorvastatin Calcium (Lipitor) 20 mg QHS PO Last administered on 08/18/18 20:14; Admin Dose 20 MG; Start 08/17/18 at 21:00 Carvedilol (Coreg) 12.5 mg BID PO Last administered on 08/19/18 08:45; Admin Dose 12.5 MG; Start 08/17/18 at 21:00 Digoxin (Digoxin) 0.25 mg DAILY PO Last administered on 08/19/18 08:45; Admin Dose 0.25 MG; Start 08/18/18 at 09:00 Levalbuterol (Xopenex Neb) 1.25 mg Q4H RESP THERAPY HHN Last administered on 08/19/18 08:33; Admin Dose 1.25 MG; Start 08/17/18 at 17:00 Ipratropium [place] (Atrovent 0.02% (Neb)) 0.5 mg Q4H RESP THERAPY PRN HHN SHORTNESS OF BREATH; Start 08/17/18 at 15:00 Hydralazine HCl (Apresoline) 25 mg TID PO Last administered on 08/19/18at 08:44; Admin Dose 25 MG; Start 08/17/18 at 21:00 Levofloxacin/ Dextrose 100 ml @ 100 mls/hr Q24H IVPB Last administered on 08/18/18at 15:07; Admin Dose 100 MLS/HR; Start 08/17/18 at 15:30 Miscellaneous Information 1 ea NOTE XX ; Start 08/17/18 at 17:30 Glucose (Glutose) 15 gm Q15M PRN PO DECREASED GLUCOSE; Start 08/17/18 at 17:30 Glucose (Glutose) 22.5 gm Q15M PRN PO DECREASED GLUCOSE; Start 08/17/18 at 17:30 Dextrose (D50w Syringe) 25 ml Q15M PRN IV DECREASED GLUCOSE; Start 08/17/18 at 17:30 Dextrose (D50w Syringe) 50 ml Q15M PRN IV DECREASED GLUCOSE; Start 08/17/18 at 17:30 Glucagon (Glucagen) 1 mg Q15M PRN IM DECREASED GLUCOSE; Start 08/17/18 at 17:30 Glucose (Glutose) 15 gm Q15M PRN BUCCAL DECREASED GLUCOSE; Start 08/17/18 at 17:30 Insulin Aspart (Novolog Insulin Pen) 10 unit WITH MEALS SC Last administered on 08/19/18at 07:55; Admin Dose 10 UNIT; Start 08/18/18 at 12:00 Insulin Glargine (Lantus) 30 units DAILY@2000 SC Last administered on 08/18/18at 21:01; Admin Dose 30 UNITS; Start 08/18/18 at 20:00 Bumetanide (Bumex) 1 mg BID DIURETICS IV Last administered on 08/19/18at 06:08; Admin Dose 1 MG; Start 08/19/18 at 06:00 KIA DELEON NP August 19, 2018 11:15
[2018-08-19] MEDS: LOSARTAN 25 MG TAB PO SCH (12:06)
[2018-08-19] MEDS ORDERED: LIDOCAINE 1% (MPF) 5 ML VIAL ONE (14:32)
--- NOTE | 2018-08-19 15:11 | RADRPT ---
Echocardiogram Report Patient Name: MONIQUE LEPEPatient ID: [id number] : 1950 (67y 11m)Study Date: 08/18/2018 8:30:25 AM Gender: FAccession #: [id number] Tech: Jonathan Kamara [facility] Location: [address] Ref.Physician: KIA DELEON Height(Cm): BSA: Weight(Kg): Quality: Technically Difficult StudyOrder Physician: KIA DELEON Account #: Procedures: Echocardiographic Report: Transthoracic echocardiogram with complete 2D, M-Mode, and doppler examination. Indications: Congestive Heart Failure. Measurements: 2D/M Mode Doppler Measurement Value Normal Range Measurement Value Normal Range LVIDd 2D 5.1 [ 3.8 - 5.2 ] cm AV Peak [place] 1.9 [ 100.0 - 170.0 ] cm/sec LVIDs 2D 2.9 [ 2.2 - 3.5 ] cm AV Peak PG 15.0 [ 2.0 - 9.0 ] mmHg LVPWd 2D 1.3 [ 0.6 - 0.9 ] cm LVOT Peak [place] 1.0 [ 70.0 - 110.0 ] cm/sec IVSd 2D 1.3 [ 0.6 - 0.9 ] cm LVOT Peak PG 4.0 [ 2.0 - 6.0 ] mmHg AoR Diam 2D 2.9 [ 2.3 - 3.1 ] cm MV E Peak [place] 1.3 [ 60.0 - 130.0 ] cm/sec EDV 2D 123.0 [ 46.0 - 106.0 ] ml MV A Peak [place] 0.5 [ 100.0 - 120.0 ] cm/sec ESV 2D 33.3 [ 14.0 - 42.0 ] ml MV E/A 2.5 [ 0.8 - 1.5 ] ratio EF 2D 72.9 [ 54.0 - 74.0 ] percent MV Decel Time 190 [ 104 - 258 ] msec LA Dimen 2D 4.2 [ 2.7 - 3.8 ] cm Lat E` Avtar 0.1 [ 10.0 - 15.0 ] cm/sec Lateral E/E` 11.4 [ 1.0 - 2.0 ] ratio MV E/A 2.5 [ 0.8 - 1.5 ] ratio TR Peak Avtar 2.9 [ 100.0 - 280.0 ] cm/sec TR Peak PG 33.0 mmHg RVSP 48.0 [ 10.0 - 36.0 ] mmHg Findings: Left Ventricle: Overall, normal left ventricular systolic function. Not all segments visualized. Normal left ventricular cavity size. Mild concentric left ventricular hypertrophy. Ejection fraction is visually estimated at 60 %. Abnormal Diastolic Function. Right Ventricle: Normal right ventricular systolic function. Moderate enlargement of right ventricle. Left Atrium: There is mild enlargement of left atrium. Right Atrium: There is mild enlargement of right atrium. Mitral Valve: Mild mitral leaflet calcification. Mild mitral annular calcification. Trace mitral regurgitation. Aortic Valve: No hemodynamically significant aortic stenosis by doppler. Aortic cusps appear mildly calcified. Tricuspid Valve: Normal appearance of the tricuspid valve. Estimated peak PA systolic pressure 48 mmHg. There is mild tricuspid regurgitation. Pericardium: Normal pericardium with no significant pericardial effusion. Aorta: Normal aortic root. IVC: Dilated IVC without respiratory collapse consistent with elevated right atrial pressure. Conclusions: Overall, normal left ventricular systolic function. Not all segments visualized. Normal left ventricular cavity size. Mild concentric left ventricular hypertrophy. Ejection fraction is visually estimated at 60 %. Abnormal Diastolic Function. Normal right ventricular systolic function. Moderate enlargement of right ventricle. There is mild enlargement of left atrium. There is mild enlargement of right atrium. Estimated peak PA systolic pressure 48 mmHg. There is mild tricuspid regurgitation. No significant valvular stenosis or regurgitation seen of remaining visualized valves. Normal pericardium with no significant pericardial effusion. Electronically Signed By: Watson Mckay 2018-08-19 15:10:15 PDT
[2018-08-19] MEDS ORDERED: POTASSIUM CHLORIDE (SR) 20 MEQ TAB PO STA (15:13)
--- NOTE | 2018-08-19 15:14 | CONS ---
Assessment/Plan Cardiology NYHA: III Heart Failure Type: Acute on Chronic Heart Failure Type: Diastolic Assessment/Plan Hospital Course (Demo Recall) Acute decompensated diastolic congestive heart failure Preserved ejection fraction Atrial fibrillation Hypertension Diabetes Morbid obesity Obstructive sleep apnea Likely obesity hypoventilation syndrome Patient with improvement in symptoms after diuresis and remains off BiPAP Would use Bumex drip again today for diuresis Patient atrial fibrillation currently heart rate is controlled. Continue beta- viola as tolerated, continue anticoagulation Consultation Date/Type/Reason Admit Date/Time August 17, 2018 at 12:20 Initial Consult Date 08/18/18 Type of Consult Cardiology Date/Time of Note DATE: 08/19/18 TIME: 15:13 24 HR Interval Summary Free Text/Dictation Shortness of breath is better today. Denies chest pain, palpitations or dizziness Exam/Review of Systems Vital Signs Vitals Vital Signs Date Temp Pulse Resp B/P (MAP) Pulse Ox O2 O2 Flow FiO2 Time Delivery Rate 08/19/18 95 4.0 12:15 08/19/18 80 18 Nasal 12:15 Cannula 08/19/18 98.5 118/68 11:41 (85) 08/19/18 45 00:16 Intake and Output 08/18/18 08/18/18 08/19/18 1515:00 23:00 07:00 IntakeIntake Total 1315 ml 360 ml OutputOutput Total 1400 ml BalanceBalance 1315 ml -1040 ml Exam Constitutional: alert, oriented (No apparent distress, sitting in chair) Head: normocephalic Respiratory: other (Coarse breath sounds bilaterally, no wheezing) Cardiovascular: irregular rhythm (S1-S2 heard) Gastrointestinal: soft, non-tender, bowel sounds Extremities: edema Labs Result Diagram: 08/18/18 0555 08/19/18 0517 Results 24hrs Laboratory Tests Test 08/18/18 17:41 08/18/18 20:11 08/19/18 05:17 08/19/18 07:50 Bedside Glucose 220 167 210 Sodium Level 143 Potassium Level 3.7 Chloride Level 95 L Carbon Dioxide Level 43 *H Anion Gap 5 Blood Urea Nitrogen 23 H Creatinine 0.98 Est Glomerular 57 L Filtrat Rate mL/min Glucose Level 221 H Calcium Level 9.5 Magnesium Level 1.8 Test 08/19/18 11:25 08/19/18 11:45 Prothrombin Time 17.8 H Prothrombin Time 1.4 Ratio INR International 1.46 Normalized Ratio Activated 33.7 Partial Thromboplast Time Bedside Glucose 230 H Medications Medications Current Medications IV Flush (NS 3 ml) 3 ml PER PROTOCOL IV ; Start 08/17/18 at 15:00 Ondansetron HCl (Zofran Inj) 4 mg Q6H PRN IV NAUSEA/VOMITING; Start 08/17/18 at 15:00 Acetaminophen (Tylenol Tab) 650 mg Q6H PRN PO .PAIN 1-3 OR TEMP; Start 08/17/18 at 15:00 Acetaminophen/ Hydrocodone Bitart ([place] (5/325)) 1 tab Q6H PRN PO .MOD PAIN 4- 6; Start 08/17/18 at 15:00 Famotidine (Pepcid) 20 mg Q12 PO Last administered on 08/19/18 08:45; Admin Dose 20 MG; Start 08/17/18 at 21:00 Diagnostic Test (Pha) (Accu-Chek) 1 ea 02 XX ; Start 08/18/18 at 02:00 Insulin Aspart (Novolog Insulin Pen) NOVOLOG *MILD* ALGORITHM WITH MEALS BEDTIME SC Last administered on 08/19/18 12:11; Admin Dose 3 UNIT; Start 08/17/18 at 18:00 Apixaban (Eliquis) 5 mg BID PO Last administered on 08/19/18 08:45; Admin Dose 5 MG; Start 08/17/18 at 21:00 Atorvastatin Calcium (Lipitor) 20 mg QHS PO Last administered on 08/18/18 20:14; Admin Dose 20 MG; Start 08/17/18 at 21:00 Carvedilol (Coreg) 12.5 mg BID PO Last administered on 08/19/18 08:45; Admin Dose 12.5 MG; Start 08/17/18 at 21:00 Digoxin (Digoxin) 0.25 mg DAILY PO Last administered on 08/19/18 08:45; Admin Dose 0.25 MG; Start 08/18/18 at 09:00 Levalbuterol (Xopenex Neb) 1.25 mg Q4H RESP THERAPY HHN Last administered on 08/19/18 12:15; Admin Dose 1.25 MG; Start 08/17/18 at 17:00 Ipratropium [place] (Atrovent 0.02% (Neb)) 0.5 mg Q4H RESP THERAPY PRN HHN SHORTNESS OF BREATH; Start 08/17/18 at 15:00 Hydralazine HCl (Apresoline) 25 mg TID PO Last administered on 08/19/18at 13:37; Admin Dose 25 MG; Start 08/17/18 at 21:00 Levofloxacin/ Dextrose 100 ml @ 100 mls/hr Q24H IVPB Last administered on 08/18/18at 15:07; Admin Dose 100 MLS/HR; Start 08/17/18 at 15:30 Miscellaneous Information 1 ea NOTE XX ; Start 08/17/18 at 17:30 Glucose (Glutose) 15 gm Q15M PRN PO DECREASED GLUCOSE; Start 08/17/18 at 17:30 Glucose (Glutose) 22.5 gm Q15M PRN PO DECREASED GLUCOSE; Start 08/17/18 at 17:30 Dextrose (D50w Syringe) 25 ml Q15M PRN IV DECREASED GLUCOSE; Start 08/17/18 at 17:30 Dextrose (D50w Syringe) 50 ml Q15M PRN IV DECREASED GLUCOSE; Start 08/17/18 at 17:30 Glucagon (Glucagen) 1 mg Q15M PRN IM DECREASED GLUCOSE; Start 08/17/18 at 17:30 Glucose (Glutose) 15 gm Q15M PRN BUCCAL DECREASED GLUCOSE; Start 08/17/18 at 17:30 Insulin Aspart (Novolog Insulin Pen) 10 unit WITH MEALS SC Last administered on 08/19/18at 12:11; Admin Dose 10 UNIT; Start 08/18/18 at 12:00 Insulin Glargine (Lantus) 30 units DAILY@2000 SC Last administered on 08/18/18at 21:01; Admin Dose 30 UNITS; Start 08/18/18 at 20:00 Losartan Potassium (Cozaar) 25 mg DAILY PO Last administered on 08/19/18at 12:06 ; Admin Dose 25 MG; Start 08/19/18 at 11:30 Bumetanide 3 mg/ Dextrose 30 ml @ 10 mls/hr Q3H ONCE IV ; Start 08/19/18 at 16:00; Stop 08/19/18 at 18:59 Bumetanide (Bumex) 1 mg BID DIURETICS PO ; Start 08/20/18 at 06:00 Watson Mckay DO August 19, 2018 15:14
[2018-08-19] MEDS ORDERED: MAGNESIUM SULFATE 2 GM/50 ML 50 ML IVPB ONE (15:30)
[2018-08-19] MEDS: LEVOFLOXACIN 500MG/D5W (PMX) 100 ML IVPB SCH (15:33)
[2018-08-19] MEDS ORDERED: BUMETANIDE 3 MG in DEXTROSE 5% 18 ML IV ONE (16:00)
[2018-08-19] MEDS: ATORVASTATIN 20 MG TAB PO SCH (20:50)
[2018-08-19] MEDS: INSULIN GLARGINE [LANTus] (100 UNITS/ML) SYG SC SCH (20:56)
[2018-08-20] VITALS (8 sets, daily range): BP systolic 116–118; BP diastolic 64–72; PULSE 68–86; RESP 18–19
[2018-08-20] MEDS: LEVALBUTEROL (NEB) 1.25 MG/0.5 ML AMP HHN SCH ×5 (01:01→15:22)
[2018-08-20] MEDS: ACCU-CHEK XX SCH (02:00)
[2018-08-20] MEDS: BUMETANIDE 1 MG TAB PO SCH ×2 (05:32→17:22)
[2018-08-20] MEDS: INSULIN ASPART [NOVOLOG] 3 ML PEN SC SCH ×4 (07:33→11:34)
[2018-08-20] MEDS: FAMOTIDINE 20 MG TAB PO SCH (08:13)
[2018-08-20] MEDS: APIXABAN 5 MG TABLET PO SCH (08:14)
[2018-08-20] MEDS: DIGOXIN 0.25 MG TAB PO SCH (08:14)
[2018-08-20] MEDS: LOSARTAN 25 MG TAB PO SCH (08:14)
--- NOTE | 2018-08-20 11:50 | CONS ---
Consult Date/Type/Reason Admit Date/Time August 17, 2018 at 12:20 Initial Consult Date 08/18/18 Type of Consult Pulmonary Date/Time of Note DATE: 08/20/18 TIME: 11:48 Subjective Patient comfortable today. No respiratory distress sitting up states she is at her baseline respiratory status. Objective Vital Signs Date Temp Pulse Resp B/P (MAP) Pulse Ox O2 O2 Flow FiO2 Time Delivery Rate 08/20/18 82 20 93 Nasal 4.0 08:27 Cannula 08/20/18 98.3 118/64 07:42 (82) 08/19/18 45 00:16 Intake and Output 08/19/18 08/19/18 08/20/18 1515:00 23:00 07:00 IntakeIntake Total 1050 ml 550 ml BalanceBalance 1050 ml 550 ml Exam GENERAL: Morbidly obese [place] lady comfortable at rest VITAL SIGNS: per chart NECK: Supple. No JVD or lymphadenopathy. CARDIAC EXAM: S1, S2. No added sounds or murmurs. CHEST: clear bilaterally, No added sounds, rales or wheezes ABDOMEN: Soft, nontender. No guarding or rebound. EXTREMITIES: No cyanosis, clubbing or edema. NEUROLOGIC: Generalized weakness. No focal deficits. Vent Setting Fraction of Inspired Oxygen pe: 40 Results/Medications Result Diagram: 08/18/18 0555 08/20/18 0543 Results 24 hrs Laboratory Tests Test 08/19/18 14:20 08/19/18 17:29 08/19/18 20:28 08/20/18 05:43 Body Fluid Type PLEURAL FLUID Body Fluid Volume 675.0 Body Fluid Color YELLOW Body Fluid CLOUDY Appearance Body Fluid WBC 920 Body Fluid RBC 3000 (Auto) Body Fluid 3.9 Polynuclear WBCs (%) Body Fluid 96.1 Mononuclear Cells % Auto Body Fluid Glucose 215 Body Fluid Total 4.2 Protein Body Fluid 352 Lactate Dehydrogen ase Bedside Glucose 329 H 141 Sodium Level 141 Potassium Level 3.7 Chloride Level 96 L Carbon Dioxide 39 H Level Anion Gap 6 Blood Urea 23 H Nitrogen Creatinine 0.89 Est Glomerular > 60 Filtrat Rate mL/min Glucose Level 151 Calcium Level 9.1 Test 08/20/18 07:30 08/20/18 11:30 Bedside Glucose 168 201 Medications Current Medications IV Flush (NS 3 ml) 3 ml PER PROTOCOL IV ; Start 08/17/18 at 15:00 Ondansetron HCl (Zofran Inj) 4 mg Q6H PRN IV NAUSEA/VOMITING; Start 08/17/18 at 15:00 Acetaminophen (Tylenol Tab) 650 mg Q6H PRN PO .PAIN 1-3 OR TEMP; Start 08/17/18 at 15:00 Acetaminophen/ Hydrocodone Bitart ([place] (5/325)) 1 tab Q6H PRN PO .MOD PAIN 4- 6; Start 08/17/18 at 15:00 Famotidine (Pepcid) 20 mg Q12 PO Last administered on 08/20/18 08:13; Admin Dose 20 MG; Start 08/17/18 at 21:00 Diagnostic Test (Pha) (Accu-Chek) 1 ea 02 XX ; Start 08/18/18 at 02:00 Insulin Aspart (Novolog Insulin Pen) NOVOLOG *MILD* ALGORITHM WITH MEALS BEDTIME SC Last administered on 08/20/18 11:34; Admin Dose 2 UNIT; Start 08/17/18 at 18:00 Apixaban (Eliquis) 5 mg BID PO Last administered on 08/20/18 08:14; Admin Dose 5 MG; Start 08/17/18 at 21:00 Atorvastatin Calcium (Lipitor) 20 mg QHS PO Last administered on 08/19/18at 2 0:50; Admin Dose 20 MG; Start 08/17/18 at 21:00 Carvedilol (Coreg) 12.5 mg BID PO Last administered on 08/20/18 08:14; Admin Dose 12.5 MG; Start 08/17/18 at 21:00 Digoxin (Digoxin) 0.25 mg DAILY PO Last administered on 08/20/18 08:14; Admin Dose 0.25 MG; Start 08/18/18 at 09:00 Levalbuterol (Xopenex Neb) 1.25 mg Q4H RESP THERAPY HHN Last administered on 08/20/18 08:27; Admin Dose 1.25 MG; Start 08/17/18 at 17:00 Ipratropium [place] (Atrovent 0.02% (Neb)) 0.5 mg Q4H RESP THERAPY PRN HHN S HORTNESS OF BREATH; Start 08/17/18 at 15:00 Hydralazine HCl (Apresoline) 25 mg TID PO Last administered on 08/20/18at 08:14; Admin Dose 25 MG; Start 08/17/18 at 21:00 Levofloxacin/ Dextrose 100 ml @ 100 mls/hr Q24H IVPB Last administered on 08/19/18at 15:33; Admin Dose 100 MLS/HR; Start 08/17/18 at 15:30 Miscellaneous Information 1 ea NOTE XX ; Start 08/17/18 at 17:30 Glucose (Glutose) 15 gm Q15M PRN PO DECREASED GLUCOSE; Start 08/17/18 at 17:30 Glucose (Glutose) 22.5 gm Q15M PRN PO DECREASED GLUCOSE; Start 08/17/18 at 17:30 Dextrose (D50w Syringe) 25 ml Q15M PRN IV DECREASED GLUCOSE; Start 08/17/18 at 17:30 Dextrose (D50w Syringe) 50 ml Q15M PRN IV DECREASED GLUCOSE; Start 08/17/18 at 17:30 Glucagon (Glucagen) 1 mg Q15M PRN IM DECREASED GLUCOSE; Start 08/17/18 at 17:30 Glucose (Glutose) 15 gm Q15M PRN BUCCAL DECREASED GLUCOSE; Start 08/17/18 at 17:30 Insulin Aspart (Novolog Insulin Pen) 10 unit WITH MEALS SC Last administered on 08/20/18at 11:34; Admin Dose 10 UNIT; Start 08/18/18 at 12:00 Insulin Glargine (Lantus) 30 units DAILY@2000 SC Last administered on 08/19/18at 20:56; Admin Dose 30 UNITS; Start 08/18/18 at 20:00 Losartan Potassium (Cozaar) 25 mg DAILY PO Last administered on 08/20/18at 08:14; Admin Dose 25 MG; Start 08/19/18 at 11:30 Bumetanide (Bumex) 1 mg BID DIURETICS PO Last administered on 08/20/18at 05:32; Admin Dose 1 MG; Start 08/20/18 at 06:00 Assessment/Plan Hospital Course (Demo Recall) Assessment 1. Acute on chronic hypoxemic and hypercapnic respiratory failure secondary to congestive cardiac failure 2. History of obstructive sleep apnea on home CPAP 3. Chronic atrial fibrillation Plan 1. Patient appears euvolemic today. 2. Transition to p.o. diuretics 3. Follow-up with an outpatient spot billing clerk Dr. Pierre Mckay 4. Continue anticoagulation rate control per cardiology DC planning okay from pulmonary standpoint SHEILA HUGHES MD, FCCP August 20, 2018 11:50
[2018-08-20] MEDS ORDERED: POTASSIUM CHLORIDE (SR) 20 MEQ TAB PO STA (12:33)
--- NOTE | 2018-08-20 12:35 | CONS ---
Assessment/Plan Cardiology NYHA: III Heart Failure Type: Acute on Chronic Heart Failure Type: Diastolic Assessment/Plan Hospital Course (Demo Recall) Acute decompensated diastolic congestive heart failure-improved Preserved ejection fraction Atrial fibrillation Hypertension Diabetes Morbid obesity Obstructive sleep apnea Likely obesity hypoventilation syndrome Patient with improvement in symptoms after diuresis and remains off BiPAP Would continue p.o. Bumex and titrate as needed Patient atrial fibrillation currently heart rate is controlled. Continue beta- viola as tolerated, continue anticoagulation DC planning Consultation Date/Type/Reason Admit Date/Time August 17, 2018 at 12:20 Initial Consult Date 08/18/18 Type of Consult Cardiology Date/Time of Note DATE: 08/20/18 TIME: 12:34 24 HR Interval Summary Free Text/Dictation Shortness of breath is better. Ambulating the room without shortness of breath Exam/Review of Systems Vital Signs Vitals Vital Signs Date Temp Pulse Resp B/P (MAP) Pulse Ox O2 O2 Flow FiO2 Time Delivery Rate 08/20/18 75 12:02 08/20/18 98.3 18 117/68 97 11:57 (84) 08/20/18 Nasal 4.0 08:27 Cannula 08/19/18 45 00:16 Intake and Output 08/19/18 08/19/18 08/20/18 1515:00 23:00 07:00 IntakeIntake Total 1050 ml 550 ml BalanceBalance 1050 ml 550 ml Exam Constitutional: alert, oriented (Walking in the room, no dyspnea seen) Head: normocephalic Respiratory: other (Coarse breath sounds bilaterally, no wheezing) Cardiovascular: irregular rhythm (S1-S2 heard) Gastrointestinal: soft, non-tender, bowel sounds Extremities: edema Labs Result Diagram: 08/18/18 0555 08/20/18 0543 Results 24hrs Laboratory Tests Test 08/19/18 14:20 08/19/18 17:29 08/19/18 20:28 08/20/18 05:43 Body Fluid Type PLEURAL FLUID Body Fluid Volume 675.0 Body Fluid Color YELLOW Body Fluid CLOUDY Appearance Body Fluid WBC 920 Body Fluid RBC 3000 (Auto) Body Fluid 3.9 Polynuclear WBCs (%) Body Fluid 96.1 Mononuclear Cells % Auto Body Fluid Glucose 215 Body Fluid Total 4.2 Protein Body Fluid 352 Lactate Dehydrogen ase Bedside Glucose 329 H 141 Sodium Level 141 Potassium Level 3.7 Chloride Level 96 L Carbon Dioxide 39 H Level Anion Gap 6 Blood Urea 23 H Nitrogen Creatinine 0.89 Est Glomerular > 60 Filtrat Rate mL/min Glucose Level 151 Calcium Level 9.1 Test 08/20/18 07:30 08/20/18 11:30 Bedside Glucose 168 201 Medications Medications Current Medications IV Flush (NS 3 ml) 3 ml PER PROTOCOL IV ; Start 08/17/18 at 15:00 Ondansetron HCl (Zofran Inj) 4 mg Q6H PRN IV NAUSEA/VOMITING; Start 08/17/18 at 15:00 Acetaminophen (Tylenol Tab) 650 mg Q6H PRN PO .PAIN 1-3 OR TEMP; Start 08/17/18 at 15:00 Acetaminophen/ Hydrocodone Bitart ([place] (5/325)) 1 tab Q6H PRN PO .MOD PAIN 4- 6; Start 08/17/18 at 15:00 Famotidine (Pepcid) 20 mg Q12 PO Last administered on 08/20/18 08:13; Admin Dose 20 MG; Start 08/17/18 at 21:00 Diagnostic Test (Pha) (Accu-Chek) 1 ea 02 XX ; Start 08/18/18 at 02:00 Insulin Aspart (Novolog Insulin Pen) NOVOLOG *MILD* ALGORITHM WITH MEALS BEDT RAMIN SC Last administered on 08/20/18 11:34; Admin Dose 2 UNIT; Start 08/17/18 at 18:00 Apixaban (Eliquis) 5 mg BID PO Last administered on 08/20/18 08:14; Admin Dose 5 MG; Start 08/17/18 at 21:00 Atorvastatin Calcium (Lipitor) 20 mg QHS PO Last administered on 08/19/18 20:50; Admin Dose 20 MG; Start 08/17/18 at 21:00 Carvedilol (Coreg) 12.5 mg BID PO Last administered on 08/20/18 08:14; Admin Dose 12.5 MG; Start 08/17/18 at 21:00 Digoxin (Digoxin) 0.25 mg DAILY PO Last administered on 08/20/18 08:14; Admin Dose 0.25 MG; Start 08/18/18 at 09:00 Levalbuterol (Xopenex Neb) 1.25 mg Q4H RESP THERAPY HHN Last administered on 5/24/19at 08:27; Admin Dose 1.25 MG; Start 08/17/18 at 17:00 Ipratropium [place] (Atrovent 0.02% (Neb)) 0.5 mg Q4H RESP THERAPY PRN HHN SHORTNESS OF BREATH; Start 08/17/18 at 15:00 Hydralazine HCl (Apresoline) 25 mg TID PO Last administered on 08/20/18at 08:14; Admin Dose 25 MG; Start 08/17/18 at 21:00 Levofloxacin/ Dextrose 100 ml @ 100 mls/hr Q24H IVPB Last administered on 08/19/18at 15:33; Admin Dose 100 MLS/HR; Start 08/17/18 at 15:30 Miscellaneous Information 1 ea NOTE XX ; Start 08/17/18 at 17:30 Glucose (Glutose) 15 gm Q15M PRN PO DECREASED GLUCOSE; Start 08/17/18 at 17:30 Glucose (Glutose) 22.5 gm Q15M PRN PO DECREASED GLUCOSE; Start 08/17/18 at 17:30 Dextrose (D50w Syringe) 25 ml Q15M PRN IV DECREASED GLUCOSE; Start 08/17/18 at 17:30 Dextrose (D50w Syringe) 50 ml Q15M PRN IV DECREASED GLUCOSE; Start 08/17/18 at 17:30 Glucagon (Glucagen) 1 mg Q15M PRN IM DECREASED GLUCOSE; Start 08/17/18 at 17:30 Glucose (Glutose) 15 gm Q15M PRN BUCCAL DECREASED GLUCOSE; Start 08/17/18 at 17:30 Insulin Aspart (Novolog Insulin Pen) 10 unit WITH MEALS SC Last administered on 08/20/18at 11:34; Admin Dose 10 UNIT; Start 08/18/18 at 12:00 Insulin Glargine (Lantus) 30 units DAILY@2000 SC Last administered on 08/19/18at 20:56; Admin Dose 30 UNITS; Start 08/18/18 at 20:00 Losartan Potassium (Cozaar) 25 mg DAILY PO Last administered on 08/20/18at 0 8:14; Admin Dose 25 MG; Start 08/19/18 at 11:30 Bumetanide (Bumex) 1 mg BID DIURETICS PO Last administered on 08/20/18at 05:32; Admin Dose 1 MG; Start 08/20/18 at 06:00 Watson Mckay DO August 20, 2018 12:35
--- NOTE | 2018-08-20 13:12 | PDOCDIS ---
Discharge Instructions CONDITION [id number] Patient Condition: [id number] Stable HOME CARE INSTRUCTIONS: [id number] Your diet recommendation is: Cyine2v Carbohydrate controlled/low-cholesterol diet FOLLOW UP/APPOINTMENTS Follow-up Plan follow up With outpatient cardiovascular surgeon in 1 week Jose Marin MD Specialty Cardiology Comments Office Address [address] [place] [address] Office Follow-up with outpatient provider network analyst in 1 week Follow-up with primary care physician in 1 week KIA DELEON NP August 20, 2018 13:12
[2018-08-20] MEDS ORDERED: LEVO500T10 PO (13:17)
[2018-08-20] MEDS ORDERED: BUME1TAB PO (13:17)
[2018-08-20] MEDS ORDERED: HYDR-3671 PO (13:17)
[2018-08-20] MEDS ORDERED: LOSA25TA2 PO (13:17)
--- NOTE | 2018-08-20 13:18 | DS ---
Date/Time of Note Date/Time of Note DATE: 08/20/18 TIME: 13:18 Discharge Summary Admission/Discharge Info Admit Date/Time August 17, 2018 at 12:20 Discharge Date/Time Discharge Diagnosis Acute on chronic hypoxemic/hypercapnic respiratory failure multifactorial with SUZIE exacerbation/pulmonary hypertension/CHF exacerbation Acute on chronic decompensated diastolic congestive heart failure exacerbation Right-sided pleural effusion Superimposed pneumonia Chronic atrial fibrillation Obstructive sleep apnea with CO2 retention Pulmonary hypertension DM2 Dyslipidemia Essential hypertension Chronic bilateral lower extremity Lymphedema Morbid obesity with a BMI 53.1 Patient Condition: Stable Consults ,cards ,pulm Procedures 08 19 2018: Ultrasound-guided right-sided thoracentesis. 08/18/2018: Ultrasound right chest IMPRESSION: Moderate right pleural effusion. 08/17/2018: Chest x-ray. IMPRESSION: 1. Moderate bilateral pleural effusions and associated atelectasis, increased. 2. Mild pulmonary edema, unchanged. Superimposed infection cannot be excluded. Hx of Present Illness This is a 67-year old obese female with a history of oxygen dependent respiratory failure, CO2 retention, pulmonary hypertension, sleep apnea, home CPAP/oxygen use, congestive heart failure, insulin-dependent diabetes, hyperlipidemia, atrial fibrillation/on anticoagulation, brought into the emergency room with 1 week duration of worsening shortness of breath. Patient denied cough, fever, chills, chest pain, palpitation, nausea, vomiting, headache, dizziness, worsening edema on lower extremities or other constitutional symptoms. In the emergency room, initial labs showed white count 12,400, potassium 5.2, glucose 276. Chest x-ray showed moderate bilateral pleural effusion, pulmonary edema. Patient was given 60 mg Lasix IV in the emergency room. She was placed on BiPAP and was given breathing treatments as well. Lead EKG showed controlled atrial fibrillation. Hospital Course 67 yo morbidly obese F w/CHF/SUZIE/o2 dep resp fx/home CPAP use, co2 retention, pulm.HTN w/viagra allergy,dm2,hld here w/worsening SOBX1 wk duration.... It was noted with acute on chronic hypoxemic/hypercapnic respiratory failure multifactorial with SUZEI exacerbation/pulmonary hypertension/acute on chronic CHF exacerbation. She was seen by [employer] intelligence officer and parts delivery driver. She was continued on aggressive diuresis, BiPAP, [id number] breathing treatment. She was ruled out for acute coronary syndrome. He was continued on beta- blockers. Statin dose was titrated secondary to hyperkalemia. She was also noted with right-sided pleural effusion for which she also underwent thoracentesis. She was also treated for pneumonia. She was continued on home medication for underlying comorbidities including atrial fibrillation. At this time, patient is feeling better. She is off BiPAP and tolerating the oxygen nasal cannula. Patient with no further breathing difficulties and is eager to be discharged. At this time, we have decided to keep patient on Bumex 1 mg twice daily on discharge. Patient to follow-up with parts delivery driver and [employer] intelligence officer after discharge which he verbalized understanding. She already has home oxygen available. Approximately 60 m spent on coordinating the discharge on this patient. Patient was seen in collaboration with Dr. Maya. Home Meds Active Scripts Levofloxacin* (Levofloxacin*) 500 Mg Tablet, 500 MG PO DAILY, #5 TAB Prov:DELEON,KIA V. STAND UP FORKLIFT OPERATOR 08/20/18 Bumetanide* (Bumetanide*) 1 Mg Tablet, 1 MG PO BID, #60 TAB Prov:DELEON,KIA V. STAND UP FORKLIFT OPERATOR 08/20/18 Losartan Potassium* (Cozaar*) 25 Mg Tablet, 25 MG PO DAILY, #30 TAB Prov:DELEON,KIA V. STAND UP FORKLIFT OPERATOR 08/20/18 Hydralazine Hcl* (Hydralazine Hcl*) 25 Mg Tab, 25 MG PO TID, #90 TAB Prov:DELEON,KIA V. STAND UP FORKLIFT OPERATOR 08/20/18 Reported Medications Apixaban* (Eliquis*) 5 Mg Tablet, 5 MG PO BID, TAB 05/12/18 Ergocalciferol (Vitamin D2) (VITAMIN D2) 50,000 Unit Capsule, 31990 UNIT PO WEEKLY, CAP 05/12/18 Atorvastatin Calcium* (Atorvastatin Calcium*) 20 Mg Tablet, 20 MG PO QHS, #30 TAB 05/12/18 Digoxin* (Digitek*) 250 Mcg Tablet, 0.25 MG PO DAILY, TAB 05/12/18 Albuterol Sulfate* (Ventolin HFA*) 18 Gm Hfa.aer.ad, 2 PUFF INHALATION Q6H PRN for WHEEZING AND SOB, #1 INHALER 05/12/18 Carvedilol* (Carvedilol*) 12.5 Mg Tablet, 12.5 MG PO BID, #60 TAB 05/12/18 Potassium Chloride* (Klor-Con*) 8 Meq Tablet.sa, 8 MEQ PO BID, TAB 01/25/18 Insulin Glargine,Hum.rec.anlog (Basaglar Kwikpen U-100) 100 Unit/1 Ml Insuln.pen, 10 UNIT SC BID, EA 01/25/18 Metformin Hcl* (Metformin Hcl*) 1,000 Mg Tablet, 1000 MG PO WITH BREAKFAST DINNE, #60 TAB 01/25/18 Glipizide* (Glipizide*) 10 Mg Tablet, 10 MG PO BID, TAB 01/25/18 Discontinued Reported Medications Ibuprofen* (Ibuprofen*) 800 Mg Tablet, 800 MG PO DAILY PRN for SEVERE PAIN LEVEL 7-10, TAB 05/12/18 Gabapentin* (Gabapentin*) 100 Mg Capsule, 200 MG PO DAILY, #180 CAP 05/12/18 Losartan Potassium* (Losartan Potassium*) 100 Mg Tablet, 100 MG PO DAILY, TAB 01/25/18 Furosemide* (Lasix*) 40 Mg Tablet, 40 MG PO BID, TAB 01/25/18 Amlodipine Besylate* (Amlodipine Besylate*) 10 Mg Tablet, 10 MG PO DAILY, #30 TAB 01/25/18 Follow-up Plan follow up With outpatient [employer] intelligence officer in 1 week Jose Marin MD Specialty Cardiology Comments Office Address [id number] [phone] Office Follow-up with outpatient parts delivery driver in 1 week Follow-up with primary care physician in 1 week Primary Care Provider Not On Staff Doctor Pending Labs Laboratory Tests Test 08/19/18 14:20 08/19/18 17:29 08/19/18 20:28 08/20/18 05:43 Body Fluid Type PLEURAL FLUID Body Fluid 675.0 ml Volume Body Fluid YELLOW Color Body Fluid CLOUDY Appearance Body Fluid WBC 920 /cmm Body Fluid RBC 3000 /uL (Auto) Body Fluid 3.9 % Polynuclear WBCs (%) Body Fluid 96.1 % Mononuclear Cells % Auto Body Fluid 215 mg/dl Glucose Body Fluid 4.2 g/dl Total Protein Body Fluid 352 U/L Lactate Dehydro genase Bedside 329 141 Glucose mg/dL (70-220) mg/dL (70-220) Sodium Level 141 mmol/L (135-14 4) Potassium 3.7 Level mmol/L (3.5-5. 1) Chloride Level 96 mmol/L (97-110 ) Carbon Dioxide 39 Level mmol/L (21-31) Anion Gap 6 (5-13) Blood Urea 23 Nitrogen mg/dl (7-20) Creatinine 0.89 mg/dl (0.44-1. 00) Est Glomerular > 60 Filtrat mL/min (>60) Rate mL/min Glucose Level 151 mg/dl (70-220) Calcium Level 9.1 mg/dl (8.4-10. 2) Test 08/20/18 07:30 08/20/18 11:30 Bedside 168 201 Glucose mg/dL (70-220) mg/dL (70-220) Microbiology Date/Time Source Procedure Growth Status 08/19/18 14:20 Thoracentesis Fluid Gram Stain Pending Resulted 08/19/18 14:20 Thoracentesis Fluid Body Fluid Culture - Preliminary Resulted KIA DELEON NP August 20, 2018 13:18
[2018-08-20] MEDS: LEVOFLOXACIN 500MG/D5W (PMX) 100 ML IVPB SCH (15:15)
== END 2018-08-20 17:45 | disposition home or self-care (01) | DRG 291 ==
LOC: E/R 09:47 → 6WM 12:20
PROVIDERS: ADMIT Hospitalist; ATTEND Hospitalist
PROC: 0W993ZX Drainage of Right Pleural Cavity, Percutaneous Approach, Diagnostic (ICD-10-PCS; principal; 2018-08-19)
DX: I11.0 Hypertensive heart disease with heart failure (principal); J96.01 Acute respiratory failure with hypoxia; J18.9 Pneumonia, unspecified organism; J96.02 Acute respiratory failure with hypercapnia; Z68.43 Body mass index [BMI] 50.0-59.9, adult; J90 Pleural effusion, not elsewhere classified; I50.33 Acute on chronic diastolic (congestive) heart failure; I48.2 Chronic atrial fibrillation; E11.8 Type 2 diabetes mellitus with unspecified complications; E87.5 Hyperkalemia; E66.01 Morbid (severe) obesity due to excess calories; J44.9 Chronic obstructive pulmonary disease, unspecified; G47.33 Obstructive sleep apnea (adult) (pediatric); E78.5 Hyperlipidemia, unspecified; F17.200 Nicotine dependence, unspecified, uncomplicated; I27.20 Pulmonary hypertension, unspecified
CPT/HCPCS: 36415; 36600; 71045; 71275; 76604; 76942; 80048; 80053; 80061; 81003; 82550; 82553; 82803; 82945; 82962; 83036; 83605; 83615; 83690; 83735; 83880; 84100; 84132; 84157; 84484; 85025; 85610; 85730; 87070; 87086; 87102; 87116; 88104; 88305; 89051; 93005; 93306; 94640; 94660; 94664; J1815; J1940; J1956; J3475; Q9967